=== PATIENT | male | born 1980 | race Caucasian/White ===

== ENCOUNTER 2020-08-16 10:15 | Outpatient (RCR) | payer OTHER, SELFPAY ==
[2020-08-06 12:31] VITALS: BMI 32.5
--- NOTE | 2020-08-06 13:47 | PC.ADMIT ---
Patient is a 40 year old male who was referred by [facility] APTU unit where patient was admitted for increase in depression sxs with SI and plan to cut his wrist. Patient has a hx of polysubstance abuse and is currently on suboxone. He reports smoking marijuana 2 grams daily to cope with how he is feeling. Patient has not smoked since he was hospitalized. He has a hx of MDD, ADHD, and PTSD and multiple inpatient admissions. He is at [facility] as a step-down from inpatient admission for continued stabilization. He stated he wants to learn more coping skills and try to be happy again. He reports being in a custody garcias with his ex over his 2 young children. Patients reportedly left the family 2 years ago after an affair and she came back into their lives a year ago. Per records patient is not formally . Patient presents with depressed mood and anxious affect. Denied SI. Gave verbal permission to email him a copy of his safety plan. Medications reconciled with patient and patient's d/c medication list faxed today from [facility] unit.
--- NOTE | 2020-08-06 16:19 | P.HPPSP_ITS ---
HPI Chief Complaint: depression Sources of Information: patient interviewed and chart reviewed HPI Narrative: 40 yo male, referred after admit to [facility] for an increase in depressive sx with SI and plans to cut his wrists, with poor attention to ADL's, increase in anxiety and panic. Pt reports his left 2 years ago and has recently returned and they are struggling with a custody balance with their children, ages 7 and 5. Pt reports his identity is that of a father and since 's return he has struggled to find who he is as a person. Reports is a therapist and they are attempting mediation, however, this has been a difficult struggle with pt needing hospitalization three times in 2020 along with PHP. Pt hopes to learn coping skills, increase structure and become clearer on who he is as an individual as he now only has the children half-time and tends to isolate when without them. Reports sleep is adequate, appetite is decreased and he feels more hopeful and not suicidal since his hospitalization. Denies hx of nishi, no OCD sx, no sx eating disorder and overall anxiety has decreased since in pt intervention. Past Psychiatric History: IP: 6- three in his 20's and three in 2019. OP: Dr. Greg Martin for psychopharmacology x 10 years [phone] and Lakeisha Mendoza for psychotherapy at [facility] [phone]. States he just started seeing Lakeisha and is now beginning to open up. PHP: [facility] Reports mental health hx since teens. 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 Hx of several detox admissions and rehab admissions. No admits over the past 13 years pt reports. Suboxone from [facility] Hx of OD x 2 Substance use history since teens Trauma History: yes Diagnostics Vital Signs (24Hr): Body Mass Index 32.5 Meds/Allergies Meds Narrative: -sertraline 150 mg daily-increased while in the hospital -gabapentin 600 mg 1200 mg tid -propranolol 10 mg [id number] while in the hospital -seroquel 50 mg tid -suboxone 8 mg daily -adderall xr 20 mg daily Allergies Allergies Allergy/AdvReac Type Severity Reaction Status Date / Time No Known Allergies Allergy Verified 08/06/20 08:19 Mental Status Exam Mental Status Exam Patient Appearance: Appropriate Patient Orientation: Person, Place, Time and Situation Level of Consciousness: Awake and Alert Patient Behavior: Appropriate and Talkative Mood Description: Anxious Affect Description: Constricted Patient Cognition Impaired: No Ability to Follow Directions: Good Speech Pattern: Spontaneous Speech Memory Description: Intact Hallucinations: None Delusions: Not Present Thought Process: Intact Thought Content: positive for Intact Depressive Symptoms: Changes in Appetite, Loss of Int. in Activity and Low Self Esteem Judgement: Good Assessment & Plan Assessment & Plan (1) Recurrent major depression-severe: Status: Acute Code(s): F33.2 - Major depressive disorder, recurrent severe without psychotic features Assessment and Plan: -Continue current regime -Call to Dr. Martin, message left. (2) Opioid use disorder, severe, in sustained remission, on maintenance therapy: Status: Acute Code(s): F11.21 - Opioid dependence, in remission (3) Cannabis use disorder, severe, dependence: Status: Acute Code(s): F12.20 - Cannabis dependence, uncomplicated Certification I certify that partial hospital treatment is medically necessary due to the symptoms and problems resulting from the patient's mental illness and the failure to treat the patient at the partial hospital level of care would likely result in the patient requiring inpatient psychiatric care which could not be prevented at a less intensive level of care. Telehealth Telehealth Location of provider rendering services: practice address Location of patient: address on file Patient Identification confirmed using: Name, : Yes Telehealth method: video Patient verbally consented to treatment: Yes Patient verbally consented to billing insurance company: Yes Patient informed of any privacy concerns related to visit: Yes Time spent with patient (mins): 30
--- NOTE | 2020-08-09 08:41 | PC.NURSE ---
Pt called out stating he doesn't feel well after getting the COVID vaccine
--- NOTE | 2020-08-12 08:39 | PC.NURSE ---
Called and LM for pt to pls call re: schedule and how treatment is going.
--- NOTE | 2020-08-13 08:42 | PC.NURSE ---
Pt called out stating he still doesn't feel well.
--- NOTE | 2020-08-15 08:42 | PC.NURSE ---
Pt called out stating he didn't sleep well and has an MD appt.
--- NOTE | 2020-08-16 14:02 | P.PNPSP_ITS ---
Subjective Subjective Date of Service: 08/16/20 Reason For Visit: depression Interim History: Pt reports PHP has been beneficial. he reports since he was discharged from In at [facility] this year mid Jul, his sleep and appetite are improving. He denies suicidal or homicidal ideation. He reports less symptoms of depression. He reports increased motivation to engage in activities that he enjoys. Medication Compliance: Yes Side effects from medications: No Attending Groups: Yes Review of Systems Review of Systems Yes all other systems are reviewed and are negative Mental Status Exam Mental Status Exam Narrative: Appearance: casually groomed, fair hygiene, in NAD Behavior: calm, cooperative Psychomotor: no agitation or retardation noted Speech: clear, normal rate/rhythm/volume, spontaneous TP: linear TC: no signs of psychosis, future oriented Mood: okay Affect:brighter, non labile AH/VH:none Delusions:none Insight/judgment:fair x 2. Memory/cog:alert, oriented x 3. grossly intact to conversational testing. Diagnostics Vital Signs (24Hr): Body Mass Index 32.5 Assessment & Plan Assessment & Plan (1) Recurrent major depression-severe: Status: Acute Code(s): F33.2 - Major depressive disorder, recurrent severe without psychotic features Assessment and Plan: -Continue current regime (2) Opioid use disorder, severe, in sustained remission, on maintenance therapy: Status: Acute Code(s): F11.21 - Opioid dependence, in remission (3) Cannabis use disorder, severe, dependence: Status: Acute Code(s): F12.20 - Cannabis dependence, uncomplicated Certification I certify that partial hospital treatment is medically necessary due to the symptoms and problems resulting from the patient's mental illness and the failure to treat the patient at the partial hospital level of care would likely result in the patient requiring inpatient psychiatric care which could not be prevented at a less intensive level of care. Greater than 50% of the session was spent on counseling and/or coordination of care Discharge Plan Discharge Attending provider: Brent Burt Medications: New sertraline 100 mg tablet 150 mg PO DAILY Qty: 45 RF: 0 Continued gabapentin [Neurontin] 600 mg Tablet 1,200 mg PO TID Qty: 42 RF: 0 propranolol 10 mg Tablet 10 mg PO BID Qty: 14 RF: 0 quetiapine 50 mg Tablet 50 mg PO TID Qty: 21 RF: 0 Discontinued sertraline [Zoloft] 50 mg Tablet 150 mg PO DAILY RF: 0 No Action dextroamphetamine-amphetamine [Adderall] 10 mg Tablet 20 mg PO DAILY RF: 0 hydroxyzine HCl 50 mg Tablet 50 mg PO QID PRN (Reason: Anxiety) RF: 0 trazodone 100 mg Tablet 100 mg PO BEDTIME RF: 0 buprenorphine-naloxone [Suboxone] 8-2 mg Film 1 film BUCCAL DAILY RF: 0 Telehealth Telehealth Location of provider rendering services: practice address Location of patient: address on file Patient Identification confirmed using: Name, : Yes Telehealth method: video Patient verbally consented to treatment: Yes Patient verbally consented to billing insurance company: Yes Patient informed of any privacy concerns related to visit: Yes Time spent with patient (mins): 15
--- NOTE | 2020-08-19 09:15 | PC.NURSE ---
Pt called and left a message stating he has to discontinue PHP due to his kids' mother having to go out of town and him having the kids. I called back and LM to review discharge info.
--- NOTE | 2020-08-19 11:17 | PC.NURSE ---
I called and LM for pt asking him to pls call back to review discharge information and discuss aftercare plans.
--- NOTE | 2020-08-19 16:14 | PC.NURSE ---
I called an left a message for pt's therapist, Lakeisha Mendoza at [facility], informing her of pt's discharge from [facility].
== END 2020-08-16 23:55 | disposition home or self-care (01) ==
LOC: HO.PHPA 10:15
PROVIDERS: Visit Provider Psychiatry & Neurology Psychiatry
DX: F33.2 Major depressive disorder, recurrent severe without psychotic features (principal); F12.20 Cannabis dependence, uncomplicated; F11.21 Opioid dependence, in remission
CPT/HCPCS: 90791; 90853

== ENCOUNTER 2020-12-18 14:17 | Inpatient (IN) | payer OTHER, SELFPAY ==
[2020-12-18 15:14] VITALS: BP 148/101; PULSE 85; RESP 16; TEMP 36.9; O2SAT 97; BMI 31.1
[2020-12-18 15:30] VITALS: BP 147/100; PULSE 83; RESP 16; TEMP 37.1; O2SAT 97
--- NOTE | 2020-12-18 16:18 | PHA.MEDREC ---
Pharmacy Consult ? Medication Reconciliation Pharmacy has completed the medication reconciliation.
[2020-12-18 16:24] LABS: COVID-19 Test Negative (Negative); IDNOW Serial# 9DD0AD1C
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
[2020-12-18 19:23] LABS: Amphetamine Screen Urine Not Detected (Not Detect); Barbiturates, Urine Not Detected (Not Detect); Benzodiazepines Screen Urine Not Detected (Not Detect); Cannabinoid Screen Urine POSITIVE (Not Detect); Cocaine Screen Urine Not Detected (Not Detect); Opiate Screen Urine Not Detected (Not Detect); Phencyclidine Screen Urine Not Detected (Not Detect)
[2020-12-18 22:16] VITALS: BP 136/92; PULSE 82
[2020-12-18] MEDS: traZODone HCL 100 MG TABLET PO (22:16)
[2020-12-18] MEDS: Gabapentin 600 MG TABLET 1200 MG PO (22:16)
[2020-12-18] MEDS: Propranolol HCL 10 MG TABLET PO (22:16)
[2020-12-18] MEDS: QUEtiapine Fumarate 50 MG TABLET PO (22:16)
--- NOTE | 2020-12-18 22:18 | PC.NURSE ---
Night time meds administered as ordered, no distress observed/reported, calm and cooperative, RN to RN to [facility]5 completed, will continue to monitor
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
[2020-12-18 23:27] VITALS: BP 164/103; PULSE 70; TEMP 36.1
[2020-12-19 07:00] VITALS: BMI 30.4
[2020-12-19] MEDS: Gabapentin 600 MG TABLET 1200 MG PO ×3 (08:00→15:41)
[2020-12-19 08:54] LABS: Alanine Aminotransferase 14 U/L (0-40); Albumin Level 4.1 g/dL (3.5-5.0); Alkaline Phosphatase 109 U/L (39-117); Anion Gap 11 (12-20); Aspartate Amino Transferase 14 U/L (5-37); Bilirubin Total 0.2 mg/dL (0.0-1.0); Blood Urea Nitrogen 12 mg/dL (9-16); Calcium 9.2 mg/dL (8.4-10.2); Carbon Dioxide 26 mmol/L (22-29); Chloride 109 mmol/L (96-108); Creatinine Clr Calc Pharmacy 141.3; Estimated Glomerular Filt Rate > 60; Glucose Random 130 mg/dL (60-115); Potassium 4.3 mmol/L (3.3-5.1); Sodium 142 mmol/L (135-145); Total Protein 7.2 g/dL (6.5-8.0)
[2020-12-19 08:55] LABS: Cholesterol 208 mg/dL; HDL Cholesterol 31 mg/dL; LDL Cholesterol Calculated 131 mg/dl; Triglycerides 234 mg/dL
[2020-12-19] MEDS: Sertraline HCL 50 MG TABLET 150 MG PO (08:56)
[2020-12-19] MEDS: Amphetamine Mixed Salts 10 MG TABLET 20 MG PO (08:56)
[2020-12-19] MEDS: QUEtiapine Fumarate 50 MG TABLET PO ×3 (08:56→20:22)
[2020-12-19 09:00] VITALS: BP 152/92; PULSE 85
[2020-12-19] MEDS: Propranolol HCL 10 MG TABLET PO ×2 (09:00→20:18)
[2020-12-19] MEDS: Acetaminophen 325 MG TABLET 650 MG PO (09:02)
[2020-12-19 09:16] LABS: Thyroid Stimulating Hormone 1.23 uIU/mL (0.32-4.0)
[2020-12-19 09:33] LABS: Estimated Average Glucose 128 mg/dL; Hemoglobin A1C 150.7425 umol/L; Hemoglobin A1c % 6.1 %; Vitamin B12 203 pg/mL (200-900)
[2020-12-19] MEDS: Nicotine 21 MG PATCH.TD24 TRANSDERMA (13:02)
[2020-12-19] MEDS: Buprenorphine/Naloxone 8/2 mg FILM 1 FILM SUBLINGUAL (13:02)
[2020-12-19] MEDS: Nicotine Polacrilex 2 MG GUM 4 MG BUCCAL ×3 (13:02→18:56)
--- NOTE | 2020-12-19 13:34 | HO.PSYADMNOT ---
HPI Chief Complaint: SI Sources of Information: patient interviewed, chart reviewed and crisis/core team assessment reviewed HPI Subjective Notes: Conditional Voluntary Narrative: Mr. Herrera is a 40 year-old male with hx of MDD, opioid use disorder in remission on suboxone who self presented to [facility] ED reporting increase depression, suicidal thoughts in context of ongoing conflict with as they go through divorce. In the ED, his utox was negative. On the unit, Mr. Herrera reports that him and his about 3 years ago. 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 Due to financial concerns, pt and his had agreed that she would buy him out the part of their marital house. In the meantime, pt has been staying home with kids and his left the home while continue to support pt financially. Pt reports in past 3 months there has been increasingly more conflict between both of them to the point that had restraining order against him and DCF is now involved. Pt reports that he feels as if is trying to use his hx of substance use against him. He denies relapsing for past 14 years and being fairly stable since psychiatrically. On the unit, pt adamantly denies suicidal or homicidal ideation. He identifies children as protective factors. He reports feeling stuck in that he is not financially stable. He can't fully explain why he has not been able to find a job. He reports he has been on same medications for several years and does not think these are the problem. Past Psychiatric History: IP: some in his 20's. APTU 07/2020; OP: Dr. Greg Martin for psychopharmacology x 10 years [phone] and Lakeisha Mendoza for psychotherapy at [facility] [phone]. States he just started seeing Lakeisha and is now beginning to open up. PHP: [facility] Reports mental health hx since teens. 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 Trauma History: yes Diagnostics Vital Signs (24Hr): Vital Signs - 24 hr 12/19/20 18:00 12/19/20 20:18 12/20/20 06:45 Temperature 98.5 F 97.3 F Pulse Rate 98 98 65 Respiratory Rate 16 Blood Pressure 158/95 H 158/95 H 137/83 Pulse Oximetry 97 12/20/20 08:59 Temperature Pulse Rate 75 Respiratory Rate Blood Pressure 133/89 Pulse Oximetry Body Mass Index 30.4 Labs Results: 12/19/20 08:02 Labs: Laboratory Results - last 48 hr 12/18/20 12/18/20 12/19/20 16:02 18:55 08:02 Sodium Potassium Chloride Carbon Dioxide Anion Gap BUN Creatinine Estim Creat Clear Calc Estimated GFR Random Glucose Estimat Average Glucose 128 Hemoglobin A1c % 6.1 Calcium Total Bilirubin AST ALT Alkaline Phosphatase Total Protein Albumin Triglycerides Cholesterol LDL Cholesterol, Calc HDL Cholesterol Vitamin B12 Folate TSH Urine Opiates Screen Not Detected Ur Barbiturates Screen Not Detected Ur Phencyclidine Scrn Not Detected Ur Amphetamines Screen Not Detected U Benzodiazepines Scrn Not Detected Urine Cocaine Screen Not Detected U Marijuana (THC) Screen POSITIVE H COVID-19 ([place]) Negative COVID-19 Clin Com See Note 12/19/20 12/19/20 12/19/20 08:02 08:02 08:02 Sodium 142 Potassium 4.3 Chloride 109 H Carbon Dioxide 26 Anion Gap 11 L BUN 12 Creatinine 0.85 Estim Creat Clear Calc 141.3 Estimated GFR > 60 Random Glucose 130 H Estimat Average Glucose Hemoglobin A1c % Calcium 9.2 Total Bilirubin 0.2 AST 14 ALT 14 Alkaline Phosphatase 109 Total Protein 7.2 Albumin 4.1 Triglycerides 234 Cholesterol 208 LDL Cholesterol, Calc 131 HDL Cholesterol 31 Vitamin B12 203 Folate 10.0 TSH 1.23 Urine Opiates Screen Ur Barbiturates Screen Ur Phencyclidine Scrn Ur Amphetamines Screen U Benzodiazepines Scrn Urine Cocaine Screen U Marijuana (THC) Screen COVID-19 ([place]) COVID-19 Clin Com Meds/Allergies Meds Home Medications Acetaminophen (Acetaminophen 325 Mg Tablet) 650 mg PO Q6H PRN PRN Reason: Headache/Pain Mild Scale (1-3) Last Admin: 12/19/20 09:02 Dose: 650 mg Documented by: Al Hydroxide/Mg Hydroxide (Magnesium Hydrox/Alum Hydrox 30 Ml Oral.Susp) 30 ml PO Q6H PRN PRN Reason: Heartburn/Nausea Amphetamine/Dextroamphetamine (Amphetamine Mixed Salts 10 Mg Tablet) 20 mg PO DAILY [facility] Last Admin: 12/20/20 08:44 Dose: 20 mg Documented by: Buprenorphine/Naloxone (Buprenorphine/Naloxone 8/2 Mg Film) 1 film SUBLINGUAL DAILY [facility] Last Admin: 12/20/20 08:45 Dose: 1 film Documented by: Gabapentin (Gabapentin 600 Mg Tablet) 1,200 mg PO TID [facility] Last Admin: 12/20/20 08:44 Dose: 1,200 mg Documented by: Hydroxyzine HCl (Hydroxyzine Hcl 50 Mg Tablet) 50 mg PO QID PRN PRN Reason: Anxiety Hydroxyzine HCl (Hydroxyzine Hcl 25 Mg Tablet) 25 mg PO BEDTIME PRN PRN Reason: Anxiety Magnesium Hydroxide (Milk Of Magnesia 30 Ml Oral.Susp) 30 ml PO DAILY PRN PRN Reason: Constipation Nicotine (Nicotine 21 Mg Patch.Td24) 21 mg TRANSDERMA DAILY [facility] Last Admin: 12/20/20 08:45 Dose: 21 mg Documented by: Nicotine Polacrilex (Nicotine Polacrilex 2 Mg Gum) 4 mg BUCCAL Q2H PRN PRN Reason: nicotine cravings Last Admin: 12/20/20 09:03 Dose: 4 mg Documented by: Propranolol HCl (Propranolol Hcl 10 Mg Tablet) 10 mg PO BID [facility]; Protocol Last Admin: 12/20/20 08:59 Dose: 10 mg Documented by: Quetiapine Fumarate (Quetiapine Fumarate 50 Mg Tablet) 50 mg PO TID [facility] Last Admin: 12/20/20 08:44 Dose: 50 mg Documented by: Sertraline HCl (Sertraline Hcl 50 Mg Tablet) 150 mg PO DAILY [facility] Last Admin: 12/20/20 08:44 Dose: 150 mg Documented by: Trazodone HCl (Trazodone Hcl 100 Mg Tablet) 100 mg PO BEDTIME [facility] Last Admin: 12/19/20 20:19 Dose: 100 mg Documented by: Trazodone HCl (Trazodone Hcl 50 Mg Tablet) 50 mg PO BEDTIME PRN PRN Reason: Insomnia Allergies Allergies Allergy/AdvReac Type Severity Reaction Status Date / Time No Known Allergies Allergy Verified 12/18/20 15:20 Mental Status Exam Mental Status Exam Narrative: Appearance: casually groomed, fair hygiene in NAD Behavior:cooperative psychomotor: no agitation or retardation noted Speech:clear, normal rate/rhythm/volume, spontaneous Thought process:linear Thought content: no signs of psychosis, Mood: anxious Affect: congruent VH/AH:none SI:denies HI:denies Delusions:none Memory/cog: alert, oriented x 3. Assessment & Plan Assessment & Plan (1) Opioid use disorder, severe, in sustained remission, on maintenance therapy: Status: Acute Code(s): F11.21 - Opioid dependence, in remission Assessment and Plan: continue suboxone (2) Recurrent major depression-severe: Status: Acute Qualifiers: Psychotic features: without psychotic features Qualified Code(s): F33.2 - Major depressive disorder, recurrent severe without psychotic features Code(s): F33.2 - Major depressive disorder, recurrent severe without psychotic features Assessment and Plan: Mr. Herrera is a 40 year-old with hx of depresion who self presented to [facility] ED reporting suicidal ideation in context of conflict with as they go through divorce. On the unit, pt denies suicidal or homicidal ideation. He reports feeling stuck as he has not been able to find stable job (for unclear reasons). We discussed risks, benefits and alternative treatment options. Pt in agreement to continue current OP medications as he feels these have been helpful throughout the years. PLAN: 1. Admit to M5 2. continue current medications including sertraline, adderall 3. Aftercare planning 4. Obtain collateral information. Reason for continued inpatient stay Substantial Risk for: harm to self
[2020-12-19 18:00] VITALS: BP 158/95; PULSE 98; TEMP 36.9
[2020-12-19 20:18] VITALS: BP 158/95; PULSE 98
[2020-12-19] MEDS: traZODone HCL 100 MG TABLET PO (20:19)
[2020-12-20 06:45] VITALS: BP 137/83; PULSE 65; RESP 16; TEMP 36.3; O2SAT 97
[2020-12-20] MEDS: Gabapentin 600 MG TABLET 1200 MG PO ×3 (08:44→21:12)
[2020-12-20] MEDS: Amphetamine Mixed Salts 10 MG TABLET 20 MG PO (08:44)
[2020-12-20] MEDS: Sertraline HCL 50 MG TABLET 150 MG PO (08:44)
[2020-12-20] MEDS: QUEtiapine Fumarate 50 MG TABLET PO ×3 (08:44→21:11)
[2020-12-20] MEDS: Nicotine 21 MG PATCH.TD24 TRANSDERMA (08:45)
[2020-12-20] MEDS: Buprenorphine/Naloxone 8/2 mg FILM 1 FILM SUBLINGUAL (08:45)
[2020-12-20 08:59] VITALS: BP 133/89; PULSE 75
[2020-12-20] MEDS: Propranolol HCL 10 MG TABLET PO ×2 (08:59→21:12)
[2020-12-20] MEDS: Nicotine Polacrilex 2 MG GUM 4 MG BUCCAL ×3 (09:03→21:11)
--- NOTE | 2020-12-20 13:50 | P.PNPSI_ITS ---
Subjective Subjective Date of Service: 12/20/20 Reason For Visit: SI Subjective Notes: Conditional Voluntary Interim History: Pt reports feeling more hopeful today. he reports some difficult sleeping- staying asleep. He reports less feelings of overwhelmed. He reports he wants to work on him self and find a job. He is interested in continuing OP psych programs. He denies SI/HI. He has been visible in the unit, social with peers. No behavioral concerns. Review of Systems Review of Systems Constitutional: No Fever, No Chills, No Fatigue, No Malaise Cardiovascular: No Chest Pain, No SOB Respiratory: No Cough, No Dyspnea Gastrointestinal: No Nausea, No Vomiting, No Diarrhea, No Abdominal pain Genitourinary: No Dysuria, No Hematuria Musculoskeletal: No joint pain, No Myalgias, No Joint Swelling Skin: No Skin Lesions, No rash Neuro: No Weakness, No Headache Psych: No Anxiety/Panic, No Depression, No SI/HI/AH/VH, + Social Issues Yes all other systems are reviewed and are negative Cardiovascular: Denies chest pain, Denies lightheadedness, Denies dyspnea and Denies dyspnea on exertion Respiratory: Denies dyspnea and Denies dyspnea on exertion Gastrointestinal: Denies constipation and Denies diarrhea Mental Status Exam Mental Status Exam Narrative: Appearance: casually groomed, fair hygiene in NAD Behavior:cooperative psychomotor: no agitation or retardation noted Speech:clear, normal rate/rhythm/volume, spontaneous Thought process:linear Thought content: no signs of psychosis, Mood: anxious Affect: congruent VH/AH:none SI:denies HI:denies Delusions:none Memory/cog: alert, oriented x 3. Diagnostics Vital Signs (24Hr): Vital Signs - 24 hr 12/19/20 18:00 12/19/20 20:18 12/20/20 06:45 Temperature 98.5 F 97.3 F Pulse Rate 98 98 65 Respiratory Rate 16 Blood Pressure 158/95 H 158/95 H 137/83 Pulse Oximetry 97 12/20/20 08:59 Temperature Pulse Rate 75 Respiratory Rate Blood Pressure 133/89 Pulse Oximetry Body Mass Index 30.4 Labs Results: 12/19/20 08:02 Labs: Laboratory Results - last 48 hr 12/18/20 12/18/20 12/19/20 16:02 18:55 08:02 Sodium Potassium Chloride Carbon Dioxide Anion Gap BUN Creatinine Estim Creat Clear Calc Estimated GFR Random Glucose Estimat Average Glucose 128 Hemoglobin A1c % 6.1 Calcium Total Bilirubin AST ALT Alkaline Phosphatase Total Protein Albumin Triglycerides Cholesterol LDL Cholesterol, Calc HDL Cholesterol Vitamin B12 Folate TSH Urine Opiates Screen Not Detected Ur Barbiturates Screen Not Detected Ur Phencyclidine Scrn Not Detected Ur Amphetamines Screen Not Detected U Benzodiazepines Scrn Not Detected Urine Cocaine Screen Not Detected U Marijuana (THC) Screen POSITIVE H COVID-19 ([place]) Negative COVID-19 Clin Com See Note 12/19/20 12/19/20 12/19/20 08:02 08:02 08:02 Sodium 142 Potassium 4.3 Chloride 109 H Carbon Dioxide 26 Anion Gap 11 L BUN 12 Creatinine 0.85 Estim Creat Clear Calc 141.3 Estimated GFR > 60 Random Glucose 130 H Estimat Average Glucose Hemoglobin A1c % Calcium 9.2 Total Bilirubin 0.2 AST 14 ALT 14 Alkaline Phosphatase 109 Total Protein 7.2 Albumin 4.1 Triglycerides 234 Cholesterol 208 LDL Cholesterol, Calc 131 HDL Cholesterol 31 Vitamin B12 203 Folate 10.0 TSH 1.23 Urine Opiates Screen Ur Barbiturates Screen Ur Phencyclidine Scrn Ur Amphetamines Screen U Benzodiazepines Scrn Urine Cocaine Screen U Marijuana (THC) Screen COVID-19 ([place]) COVID-19 Clin Com Medications Medications Current Medications Generic Name Dose Route Start Last Admin Trade Name Freq PRN Reason Stop Dose Admin Acetaminophen 650 mg 12/18/20 21:31 12/19/20 09:02 Acetaminophen 325 Mg Tablet PO 650 mg Q6H PRN Administration Headache/Pain Mild Scale (1-3) Al Hydroxide/Mg Hydroxide 30 ml 12/18/20 21:31 Magnesium Hydrox/Alum Hydrox 30 Ml Oral.Susp PO Q6H PRN Heartburn/Nausea Amphetamine/Dextroamphetamine 20 mg 12/19/20 09:00 12/20/20 08:44 Amphetamine Mixed Salts 10 Mg Tablet PO 20 mg DAILY [facility] Administration Buprenorphine/Naloxone 1 film 12/19/20 12:50 12/20/20 08:45 Buprenorphine/Naloxone 8/2 Mg Film SUBLINGUAL 1 film DAILY [facility] Administration Gabapentin 1,200 mg 12/18/20 21:00 12/20/20 08:44 Gabapentin 600 Mg Tablet PO 1,200 mg TID [facility] Administration Hydroxyzine HCl 50 mg 12/18/20 19:34 Hydroxyzine Hcl 50 Mg Tablet PO QID PRN Anxiety Hydroxyzine HCl 25 mg 12/18/20 21:31 Hydroxyzine Hcl 25 Mg Tablet PO BEDTIME PRN Anxiety Magnesium Hydroxide 30 ml 12/18/20 21:31 Milk Of Magnesia 30 Ml Oral.Susp PO DAILY PRN Constipation Nicotine 21 mg 12/19/20 12:55 12/20/20 08:45 Nicotine 21 Mg Patch.Td24 TRANSDERMA 21 mg DAILY [facility] Administration Nicotine Polacrilex 4 mg 12/19/20 12:53 12/20/20 09:03 Nicotine Polacrilex 2 Mg Gum BUCCAL 4 mg Q2H PRN Administration nicotine cravings Propranolol HCl 10 mg 12/18/20 21:00 12/20/20 08:59 Propranolol Hcl 10 Mg Tablet PO 10 mg BID [facility] Administration Protocol Quetiapine Fumarate 50 mg 12/18/20 21:00 12/20/20 08:44 Quetiapine Fumarate 50 Mg Tablet PO 50 mg TID [facility] Administration Sertraline HCl 150 mg 12/19/20 09:00 12/20/20 08:44 Sertraline Hcl 50 Mg Tablet PO 150 mg DAILY [facility] Administration Trazodone HCl 100 mg 12/18/20 21:00 12/19/20 20:19 Trazodone Hcl 100 Mg Tablet PO 100 mg BEDTIME [facility] Administration Trazodone HCl 50 mg 12/18/20 21:31 Trazodone Hcl 50 Mg Tablet PO BEDTIME PRN Insomnia Allergies Allergies Allergy/AdvReac Type Severity Reaction Status Date / Time No Known Allergies Allergy Verified 12/18/20 15:20 Assessment & Plan Assessment & Plan (1) Opioid use disorder, severe, in sustained remission, on maintenance therapy: Status: Acute Code(s): F11.21 - Opioid dependence, in remission Assessment and Plan: continue suboxone (2) Recurrent major depression-severe: Qualifiers: Psychotic features: without psychotic features Qualified Code(s): F33.2 - Major depressive disorder, recurrent severe without psychotic features Status: Acute Code(s): F33.2 - Major depressive disorder, recurrent severe without psychotic features Assessment and Plan: Mr. Herrera is a 40 year-old with hx of depresion who self presented to [facility] ED reporting suicidal ideation in context of conflict with as they go through divorce. On the unit, pt denies suicidal or homicidal ideation. He reports feeling stuck as he has not been able to find stable job (for unclear reasons). We discussed risks, benefits and alternative treatment options. Pt in agreement to continue current OP medications as he feels these have been helpful throughout the years. PLAN: 1. Admit to M5 2. continue current medications including sertraline, adderall 3. Aftercare planning 4. Obtain collateral information. Greater than 50% of the session was spent on counseling and/or coordination of care Reason for contiued inpatient stay Substantial Risk for: harm to self
[2020-12-20 18:00] VITALS: BP 140/93; PULSE 103; TEMP 36.5
[2020-12-20 21:12] VITALS: BP 140/93; PULSE 103
[2020-12-20] MEDS: traZODone HCL 50 MG TABLET 150 MG PO (21:12)
[2020-12-20] MEDS: hydrOXYzine HCL 25 MG TABLET PO (21:12)
[2020-12-21 06:00] VITALS: RESP 16; TEMP 36.5; O2SAT 96
--- NOTE | 2020-12-21 06:45 | HO.PSYCHPN ---
Subjective Subjective Date of Service: 12/23/20 Reason For Visit: SI Interim History: Pt continues to report feeling more hopeful today. he reports some difficult sleeping- staying asleep- increase trazodone. He reports less feelings of overwhelmed. He reports he wants to work on himself and find a job. He is interested in continuing OP psych programs. He denies SI/HI. He has been visible in the unit, social with peers. No behavioral concerns. Review of Systems Review of Systems Constitutional: No Fever, No Chills, No Fatigue, No Malaise Cardiovascular: No Chest Pain, No SOB Respiratory: No Cough, No Dyspnea Gastrointestinal: No Nausea, No Vomiting, No Diarrhea, No Abdominal pain Genitourinary: No Dysuria, No Hematuria Musculoskeletal: No joint pain, No Myalgias, No Joint Swelling Skin: No Skin Lesions, No rash Neuro: No Weakness, No Headache Psych: No Anxiety/Panic, No Depression, No SI/HI/AH/VH, + Social Issues Yes all other systems are reviewed and are negative Cardiovascular: Denies chest pain, Denies lightheadedness, Denies dyspnea and Denies dyspnea on exertion Respiratory: Denies dyspnea and Denies dyspnea on exertion Gastrointestinal: Denies constipation and Denies diarrhea Mental Status Exam Mental Status Exam Narrative: Appearance: casually groomed, fair hygiene in NAD Behavior:cooperative psychomotor: no agitation or retardation noted Speech:clear, normal rate/rhythm/volume, spontaneous Thought process:linear Thought content: no signs of psychosis, Mood: anxious Affect: congruent VH/AH:none SI:denies HI:denies Delusions:none Memory/cog: alert, oriented x 3. Diagnostics Vital Signs (24Hr): Vital Signs - 24 hr 12/22/20 07:52 12/22/20 20:16 12/22/20 20:27 Temperature 97.5 F Pulse Rate 91 88 88 Blood Pressure 140/82 H 140/82 H 140/82 H Body Mass Index 30.4 Labs Results: 12/19/20 08:02 Medications Medications Current Medications Generic Name Dose Route Start Last Admin Trade Name Freq PRN Reason Stop Dose Admin Acetaminophen 650 mg 12/18/20 21:31 12/22/20 20:16 Acetaminophen 325 Mg Tablet PO 650 mg Q6H PRN Administration Headache/Pain Mild Scale (1-3) Al Hydroxide/Mg Hydroxide 30 ml 12/18/20 21:31 Magnesium Hydrox/Alum Hydrox 30 Ml Oral.Susp PO Q6H PRN Heartburn/Nausea Amphetamine/Dextroamphetamine 20 mg 12/19/20 09:00 12/22/20 07:51 Amphetamine Mixed Salts 10 Mg Tablet PO 20 mg DAILY [facility] Administration Buprenorphine/Naloxone 1 film 12/19/20 12:50 12/22/20 07:51 Buprenorphine/Naloxone 8/2 Mg Film SUBLINGUAL 1 film DAILY [facility] Administration Gabapentin 1,200 mg 12/18/20 21:00 12/22/20 20:16 Gabapentin 600 Mg Tablet PO 1,200 mg TID [facility] Administration Hydroxyzine HCl 50 mg 12/18/20 19:34 12/22/20 20:16 Hydroxyzine Hcl 50 Mg Tablet PO 50 mg QID PRN Administration Anxiety Hydroxyzine HCl 25 mg 12/18/20 21:31 12/20/20 21:12 Hydroxyzine Hcl 25 Mg Tablet PO 25 mg BEDTIME PRN Administration Anxiety Magnesium Hydroxide 30 ml 12/18/20 21:31 Milk Of Magnesia 30 Ml Oral.Susp PO DAILY PRN Constipation Nicotine 21 mg 12/19/20 12:55 12/22/20 07:52 Nicotine 21 Mg Patch.Td24 TRANSDERMA 21 mg DAILY [facility] Administration Nicotine Polacrilex 4 mg 12/19/20 12:53 12/22/20 20:16 Nicotine Polacrilex 2 Mg Gum BUCCAL 4 mg Q2H PRN Administration nicotine cravings Propranolol HCl 10 mg 12/18/20 21:00 12/22/20 20:16 Propranolol Hcl 10 Mg Tablet PO 10 mg BID [facility] Administration Protocol Quetiapine Fumarate 50 mg 12/22/20 17:00 12/22/20 17:14 Quetiapine Fumarate 50 Mg Tablet PO 50 mg BIDWM [facility] Administration Quetiapine Fumarate 100 mg 12/22/20 21:00 12/22/20 20:16 Quetiapine Fumarate 100 Mg Tablet PO 100 mg BEDTIME [facility] Administration Sertraline HCl 150 mg 12/19/20 09:00 12/22/20 07:51 Sertraline Hcl 50 Mg Tablet PO 150 mg DAILY [facility] Administration Trazodone HCl 50 mg 12/18/20 21:31 Trazodone Hcl 50 Mg Tablet PO BEDTIME PRN Insomnia Trazodone HCl 150 mg 12/20/20 21:00 12/22/20 20:15 Trazodone Hcl 50 Mg Tablet PO 150 mg BEDTIME [facility] Administration Allergies Allergies Allergy/AdvReac Type Severity Reaction Status Date / Time No Known Allergies Allergy Verified 12/18/20 15:20 Assessment & Plan Assessment & Plan (1) Opioid use disorder, severe, in sustained remission, on maintenance therapy: Status: Acute Code(s): F11.21 - Opioid dependence, in remission Assessment and Plan: continue suboxone (2) Recurrent major depression-severe: Qualifiers: Psychotic features: without psychotic features Qualified Code(s): F33.2 - Major depressive disorder, recurrent severe without psychotic features Status: Acute Code(s): F33.2 - Major depressive disorder, recurrent severe without psychotic features Assessment and Plan: Mr. Herrera is a 40 year-old with hx of depresion who self presented to [facility] ED reporting suicidal ideation in context of conflict with as they go through divorce. On the unit, pt denies suicidal or homicidal ideation. He reports feeling stuck as he has not been able to find stable job (for unclear reasons). We discussed risks, benefits and alternative treatment options. Pt in agreement to continue current OP medications as he feels these have been helpful throughout the years. PLAN: 1. Admit to M5 2. continue current medications including sertraline, adderall 3. Aftercare planning 4. Obtain collateral information. Greater than 50% of the session was spent on counseling and/or coordination of care Reason for contiued inpatient stay Substantial Risk for: harm to self
[2020-12-21] MEDS: Amphetamine Mixed Salts 10 MG TABLET 20 MG PO (08:24)
[2020-12-21] MEDS: QUEtiapine Fumarate 50 MG TABLET PO ×3 (08:24→20:37)
[2020-12-21] MEDS: Gabapentin 600 MG TABLET 1200 MG PO ×3 (08:24→20:34)
[2020-12-21] MEDS: Sertraline HCL 50 MG TABLET 150 MG PO (08:24)
[2020-12-21] MEDS: Buprenorphine/Naloxone 8/2 mg FILM 1 FILM SUBLINGUAL (08:25)
[2020-12-21 08:27] VITALS: BP 133/76; PULSE 75
[2020-12-21] MEDS: Nicotine Polacrilex 2 MG GUM 4 MG BUCCAL ×4 (08:27→20:34)
[2020-12-21] MEDS: Propranolol HCL 10 MG TABLET PO ×2 (08:27→20:36)
[2020-12-21] MEDS: Nicotine 21 MG PATCH.TD24 TRANSDERMA (08:28)
[2020-12-21] MEDS: hydrOXYzine HCL 50 MG TABLET PO ×2 (13:49→20:34)
[2020-12-21 20:30] VITALS: BP 140/88; PULSE 97; TEMP 36.6
[2020-12-21] MEDS: traZODone HCL 50 MG TABLET 150 MG PO (20:35)
[2020-12-21 20:36] VITALS: BP 140/88; PULSE 97
--- NOTE | 2020-12-22 06:46 | P.PNPSI_ITS ---
Subjective Subjective Date of Service: 12/23/20 Reason For Visit: SI Interim History: Pt continues to report feeling more hopeful today. he continues to report some difficult sleeping- staying asleep- despite increase in trazodone. He reports less feelings of overwhelmed. He reports he wants to work on himself and find a job. He is interested in continuing OP psych programs. He denies SI/HI. He has been visible in the unit, social with peers. No behavioral concerns. Review of Systems Review of Systems Constitutional: No Fever, No Chills, No Fatigue, No Malaise Cardiovascular: No Chest Pain, No SOB Respiratory: No Cough, No Dyspnea Gastrointestinal: No Nausea, No Vomiting, No Diarrhea, No Abdominal pain Genitourinary: No Dysuria, No Hematuria Musculoskeletal: No joint pain, No Myalgias, No Joint Swelling Skin: No Skin Lesions, No rash Neuro: No Weakness, No Headache Psych: No Anxiety/Panic, No Depression, No SI/HI/AH/VH, + Social Issues Yes all other systems are reviewed and are negative Cardiovascular: Denies chest pain, Denies lightheadedness, Denies dyspnea and Denies dyspnea on exertion Respiratory: Denies dyspnea and Denies dyspnea on exertion Gastrointestinal: Denies constipation and Denies diarrhea Mental Status Exam Mental Status Exam Narrative: Appearance: casually groomed, fair hygiene in NAD Behavior:cooperative psychomotor: no agitation or retardation noted Speech:clear, normal rate/rhythm/volume, spontaneous Thought process:linear Thought content: no signs of psychosis, Mood: anxious Affect: congruent VH/AH:none SI:denies HI:denies Delusions:none Memory/cog: alert, oriented x 3. Diagnostics Vital Signs (24Hr): Vital Signs - 24 hr 12/22/20 07:52 12/22/20 20:16 12/22/20 20:27 Temperature 97.5 F Pulse Rate 91 88 88 Blood Pressure 140/82 H 140/82 H 140/82 H Body Mass Index 30.4 Labs Results: 12/19/20 08:02 Medications Medications Current Medications Generic Name Dose Route Start Last Admin Trade Name Freq PRN Reason Stop Dose Admin Acetaminophen 650 mg 12/18/20 21:31 12/22/20 20:16 Acetaminophen 325 Mg Tablet PO 650 mg Q6H PRN Administration Headache/Pain Mild Scale (1-3) Al Hydroxide/Mg Hydroxide 30 ml 07/21/21 21:31 Magnesium Hydrox/Alum Hydrox 30 Ml Oral.Susp PO Q6H PRN Heartburn/Nausea Amphetamine/Dextroamphetamine 20 mg 12/19/20 09:00 12/22/20 07:51 Amphetamine Mixed Salts 10 Mg Tablet PO 20 mg DAILY SHAHRZAD Administration Buprenorphine/Naloxone 1 film 12/19/20 12:50 12/22/20 07:51 Buprenorphine/Naloxone 8/2 Mg Film SUBLINGUAL 1 film DAILY SHAHRZAD Administration Gabapentin 1,200 mg 12/18/20 21:00 12/22/20 20:16 Gabapentin 600 Mg Tablet PO 1,200 mg TID SHAHRZAD Administration Hydroxyzine HCl 50 mg 12/18/20 19:34 12/22/20 20:16 Hydroxyzine Hcl 50 Mg Tablet PO 50 mg QID PRN Administration Anxiety Hydroxyzine HCl 25 mg 12/18/20 21:31 12/20/20 21:12 Hydroxyzine Hcl 25 Mg Tablet PO 25 mg BEDTIME PRN Administration Anxiety Magnesium Hydroxide 30 ml 12/18/20 21:31 Milk Of Magnesia 30 Ml Oral.Susp PO DAILY PRN Constipation Nicotine 21 mg 12/19/20 12:55 12/22/20 07:52 Nicotine 21 Mg Patch.Td24 TRANSDERMA 21 mg DAILY SHAHRZAD Administration Nicotine Polacrilex 4 mg 12/19/20 12:53 12/22/20 20:16 Nicotine Polacrilex 2 Mg Gum BUCCAL 4 mg Q2H PRN Administration nicotine cravings Propranolol HCl 10 mg 12/18/20 21:00 12/22/20 20:16 Propranolol Hcl 10 Mg Tablet PO 10 mg BID SHAHRZAD Administration Protocol Quetiapine Fumarate 50 mg 12/22/20 17:00 12/22/20 17:14 Quetiapine Fumarate 50 Mg Tablet PO 50 mg BIDWM SHAHRZAD Administration Quetiapine Fumarate 100 mg 12/22/20 21:00 12/22/20 20:16 Quetiapine Fumarate 100 Mg Tablet PO 100 mg BEDTIME SHAHRZAD Administration Sertraline HCl 150 mg 12/19/20 09:00 12/22/20 07:51 Sertraline Hcl 50 Mg Tablet PO 150 mg DAILY SHAHRZAD Administration Trazodone HCl 50 mg 12/18/20 21:31 Trazodone Hcl 50 Mg Tablet PO BEDTIME PRN Insomnia Trazodone HCl 150 mg 12/20/20 21:00 12/22/20 20:15 Trazodone Hcl 50 Mg Tablet PO 150 mg BEDTIME SHAHRZAD Administration Allergies Allergies Allergy/AdvReac Type Severity Reaction Status Date / Time No Known Allergies Allergy Verified 12/18/20 15:20 Assessment & Plan Assessment & Plan (1) Opioid use disorder, severe, in sustained remission, on maintenance therapy: Status: Acute Code(s): F11.21 - Opioid dependence, in remission Assessment and Plan: continue suboxone (2) Recurrent major depression-severe: Qualifiers: Psychotic features: without psychotic features Qualified Code(s): F33.2 - Major depressive disorder, recurrent severe without psychotic features Status: Acute Code(s): F33.2 - Major depressive disorder, recurrent severe without psychotic features Assessment and Plan: Mr. Herrera is a 40 year-old with hx of depresion who self presented to [facility] ED reporting suicidal ideation in context of conflict with as they go through divorce. On the unit, pt denies suicidal or homicidal ideation. He reports feeling stuck as he has not been able to find stable job (for unclear reasons). We discussed risks, benefits and alternative treatment options. Pt in agreement to continue current OP medications as he feels these have been helpful throughout the years. PLAN: 1. Admit to M5 2. continue current medications including sertraline, adderall 3. Aftercare planning 4. Obtain collateral information. Greater than 50% of the session was spent on counseling and/or coordination of care Reason for contiued inpatient stay Substantial Risk for: harm to self
[2020-12-22] MEDS: QUEtiapine Fumarate 50 MG TABLET PO ×2 (07:51→17:14)
[2020-12-22] MEDS: Sertraline HCL 50 MG TABLET 150 MG PO (07:51)
[2020-12-22] MEDS: Buprenorphine/Naloxone 8/2 mg FILM 1 FILM SUBLINGUAL (07:51)
[2020-12-22] MEDS: Amphetamine Mixed Salts 10 MG TABLET 20 MG PO (07:51)
[2020-12-22 07:52] VITALS: BP 140/82; PULSE 91
[2020-12-22] MEDS: Propranolol HCL 10 MG TABLET PO ×2 (07:52→20:16)
[2020-12-22] MEDS: Nicotine 21 MG PATCH.TD24 TRANSDERMA (07:52)
[2020-12-22] MEDS: Gabapentin 600 MG TABLET 1200 MG PO ×3 (07:52→20:16)
[2020-12-22] MEDS: hydrOXYzine HCL 50 MG TABLET PO ×2 (09:44→20:16)
[2020-12-22] MEDS: Nicotine Polacrilex 2 MG GUM 4 MG BUCCAL ×4 (09:44→20:16)
[2020-12-22] MEDS: traZODone HCL 50 MG TABLET 150 MG PO (20:15)
[2020-12-22 20:16] VITALS: BP 140/82; PULSE 88
[2020-12-22] MEDS: Acetaminophen 325 MG TABLET 650 MG PO (20:16)
[2020-12-22] MEDS: QUEtiapine Fumarate 100 MG TABLET PO (20:16)
[2020-12-22 20:27] VITALS: BP 140/82; PULSE 88; TEMP 36.4
[2020-12-23 06:00] VITALS: BP 133/94; PULSE 97; TEMP 36.5; O2SAT 96
[2020-12-23 08:33] VITALS: BP 140/82; PULSE 88
[2020-12-23] MEDS: QUEtiapine Fumarate 50 MG TABLET PO ×2 (08:33→16:52)
[2020-12-23] MEDS: Amphetamine Mixed Salts 10 MG TABLET 20 MG PO (08:33)
[2020-12-23] MEDS: Propranolol HCL 10 MG TABLET PO ×2 (08:33→21:01)
[2020-12-23] MEDS: Nicotine 21 MG PATCH.TD24 TRANSDERMA (08:34)
[2020-12-23] MEDS: Sertraline HCL 50 MG TABLET 150 MG PO (08:34)
[2020-12-23] MEDS: Buprenorphine/Naloxone 8/2 mg FILM 1 FILM SUBLINGUAL (08:34)
[2020-12-23] MEDS: Gabapentin 600 MG TABLET 1200 MG PO ×3 (08:34→21:01)
[2020-12-23] MEDS: Nicotine Polacrilex 2 MG GUM 4 MG BUCCAL ×4 (09:09→19:28)
[2020-12-23] MEDS: hydrOXYzine HCL 50 MG TABLET PO ×2 (12:50→21:01)
[2020-12-23] MEDS: Acetaminophen 325 MG TABLET 650 MG PO (14:57)
[2020-12-23 21:01] VITALS: BP 145/86; PULSE 92
[2020-12-23] MEDS: QUEtiapine Fumarate 100 MG TABLET PO (21:01)
[2020-12-23] MEDS: traZODone HCL 50 MG TABLET 150 MG PO (21:01)
[2020-12-23 21:07] VITALS: BP 145/86; PULSE 92; TEMP 36.9
[2020-12-24 06:32] VITALS: BP 133/73; PULSE 76; RESP 18; TEMP 36.8; O2SAT 97
[2020-12-24 08:03] VITALS: BP 133/73; PULSE 76
[2020-12-24] MEDS: Amphetamine Mixed Salts 10 MG TABLET 20 MG PO (08:03)
[2020-12-24] MEDS: Propranolol HCL 10 MG TABLET PO (08:03)
[2020-12-24] MEDS: Gabapentin 600 MG TABLET 1200 MG PO (08:03)
[2020-12-24] MEDS: QUEtiapine Fumarate 50 MG TABLET PO (08:03)
[2020-12-24] MEDS: Sertraline HCL 50 MG TABLET 150 MG PO (08:03)
[2020-12-24] MEDS: Nicotine 21 MG PATCH.TD24 TRANSDERMA (08:04)
[2020-12-24] MEDS: Buprenorphine/Naloxone 8/2 mg FILM 1 FILM SUBLINGUAL (08:04)
[2020-12-24] MEDS: Nicotine Polacrilex 2 MG GUM 4 MG BUCCAL (10:35)
--- NOTE | 2020-12-24 11:00 | P.DS_ITS ---
DS: Providers Provider Date of Service: 12/24/20 Date of admission: 12/18/20 21:31 Primary care physician: Salvatore Valenzuela MD DS: Diagnosis Discharge Diagnosis (1) Opioid use disorder, severe, in sustained remission, on maintenance therapy: Status: Acute (2) Recurrent major depression-severe: Status: Acute DS: Medications Discharge Medications Home Medications: Home Medications Medication Instructions Recorded Confirmed buprenorphine-naloxone [Suboxone] 1 film BUCCAL DAILY 08/06/20 12/18/20 Previous Rx's Medication Instructions Recorded gabapentin 1,200 mg PO TID #90 tab 12/24/20 hydroxyzine HCl 50 mg PO QID PRN #90 tab 12/24/20 nicotine 21 mg TRANSDERMAL DAILY #30 ea 12/24/20 propranolol 10 mg PO BID #30 tab 12/24/20 quetiapine 50 mg PO BIDWM #60 tab 12/24/20 quetiapine 200 mg PO BEDTIME #60 tab 12/24/20 sertraline 150 mg PO DAILY #90 tab 12/24/20 trazodone 150 mg PO BEDTIME #30 tab 12/24/20 Mental Status Exam Mental Status Exam Narrative: Appearance: casually groomed, fair hygiene in NAD Behavior:cooperative psychomotor: no agitation or retardation noted Speech:clear, normal rate/rhythm/volume, spontaneous Thought process:linear Thought content: no signs of psychosis, future oriented Mood: better Affect: congruent VH/AH:none SI:denies HI:denies Delusions:none Memory/cog: alert, oriented x 3. Data Data Completed and Pending Completed studies during hospitalization [Text1]: 12/18/20 12/18/20 12/19/20 16:02 18:55 08:02 Sodium Potassium Chloride Carbon Dioxide Anion Gap BUN Creatinine Estim Creat Clear Calc Estimated GFR Random Glucose Estimat Average Glucose 128 Hemoglobin A1c % 6.1 Calcium Total Bilirubin AST ALT Alkaline Phosphatase Total Protein Albumin Triglycerides Cholesterol LDL Cholesterol, Calc HDL Cholesterol Vitamin B12 Folate TSH Urine Opiates Screen Not Detected Ur Barbiturates Screen Not Detected Ur Phencyclidine Scrn Not Detected Ur Amphetamines Screen Not Detected U Benzodiazepines Scrn Not Detected Urine Cocaine Screen Not Detected U Marijuana (THC) Screen POSITIVE H COVID-19 ([place]) Negative COVID-19 Clin Com See Note 12/19/20 12/19/20 12/19/20 08:02 08:02 08:02 Sodium 142 Potassium 4.3 Chloride 109 H Carbon Dioxide 26 Anion Gap 11 L BUN 12 Creatinine 0.85 Estim Creat Clear Calc 141.3 Estimated GFR > 60 Random Glucose 130 H Estimat Average Glucose Hemoglobin A1c % Calcium 9.2 Total Bilirubin 0.2 AST 14 ALT 14 Alkaline Phosphatase 109 Total Protein 7.2 Albumin 4.1 Triglycerides 234 Cholesterol 208 LDL Cholesterol, Calc 131 HDL Cholesterol 31 Vitamin B12 203 Folate 10.0 TSH 1.23 Urine Opiates Screen Ur Barbiturates Screen Ur Phencyclidine Scrn Ur Amphetamines Screen U Benzodiazepines Scrn Urine Cocaine Screen U Marijuana (THC) Screen COVID-19 ([place]) COVID-19 Clin Com DS: Summary Hospital Course Hospital Course: Mr. Herrera is a 40 year-old male with hx of MDD, opioid use disorder in remission on suboxone who self presented to [facility] ED reporting increase depression, suicidal thoughts in context of ongoing conflict with as they go through divorce. In the ED, his utox was negative. On the unit, Mr. Herrera reports that him and his about 3 years ago. 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 Due to financial concerns, pt and his had agreed that she would buy him out the part of their marital house. In the meantime, pt has been staying home with kids and his left the home while continue to support pt financially. Pt reports in past 3 months there has been increasingly more conflict between both of them to the point that had restraining order against him and DCF is now involved. Pt reports that he feels as if is trying to use his hx of substance use against him. He denies relapsing for past 14 years and being fairly stable since psychiatrically. On the unit, pt adamantly denies suicidal or homicidal ideation. He identifies children as protective factors. He reports feeling stuck in that he is not financially stable. He can't fully explain why he has not been able to find a job. He reports he has been on same medications for several years and does not think these are the problem. Past Psychiatric History: IP: some in his 20's. APTU 07/2020;? OP: Dr. Greg Martin for psychopharmacology x 10 years [phone] and Lakeisha Mendoza for psychotherapy at [facility] [phone]. States he just started seeing Lakeisha and is now beginning to open up. PHP: [facility] Reports mental health hx since teens. Medical Evaluation Reviewed: Yes HOSPITAL COURSE Mr. Herrera was admitted on CV and placed on 15 minutes checks for safety. Pt reported feeling depressed, overwhelmed with current divorce process. He reports having no financial support as his soon to be ex has been the main bread winner. He expected to pay for him to stay at rooming house until he was able to get a job. Reasons for him not being able to have a job where unclear. Pt reported that at first due to long hx of substance use he had pending warrants but he also stated he took care of that legally 2 years ago. He reports he started adderall about 18 months ago as he felt he was not able to get out of the home and had motivation/attention problems but states he had not been able to hold a stable job. He also reported feeling overwhelmed due to him suspecting his was emptying his suboxone and adderall so that it seems as if he is misusing his medications. Pt reported having no friends or family who could support him during this process. To some extend he expected to continue being his financial source. We discussed risks, benefits and alternative treatment options. He reported current medications were fine. He did not think it was a medication issue as he reported sertraline had helped him with depression. He reported feeling much less overwhemed in the unit. He reported needing a respite from tumoltuos situation at home. And despite several of his outpatient providers recommending he moves out of the home, he declined. Only medication change during this admission was increase seroquel at bedtime to 200mg po qhs as pt reports poor sleep. Trazodone partially effective for sleep. His affect was gradually brighter. He was social with select peers. He was often seen smiling and socializing. His affect appeared much brighter when he was visible in unit. He reported decreased symptoms of depression. He denied suicidal ideation. He was eating well. Sleep- still some difficulties staying asleep but reported seroquel was helpful. There were no incidences of disruptive behaviors nor need of restraints. Prior to discharge team tried calling his , as pt reported he could return there. we were unable to leave messages to her as her VM was full and phone was never answered. Status at Discharge Cognitive/behavioral status at discharge: Pt adamantly denies suicidal or homicidal ideation. His affect is brighter. No signs of aggression towards self or others. Functional status at discharge: independent ambulation Overall status at discharge: patient is progressing back to baseline Time Spent with Patient Time attestation: Total time spent providing and/or coordinating discharge services: Time spent: Greater than 30 minutes Discharge Plan Discharge Patient Disposition: Home, Self-Care Discharge Diagnosis: MDD, recurrent, moderate Referrals: [facility] [Other] - 12/27/20 9:00 am (Please contact [facility] Intake at the above number if you do not hear from them by Wednesday12/30/20) [facility] [Other] - 1 Week (You have been added to the [facility] waitlist and will be contacted once when a spot becomes available. Please contact the above number for a status update on your referral if you have not heard back by 01/06/21) [facility] [Other] - 12/27/20 10:00 am (The assessment is on Wednesday12/27/20 @ 10AM, but you will begin the program on Wednesday12/30/20) [facility] [Other] - 1 Week (The program is a peer-led recovery support center and is open from 9-5PM Wednesday-Wednesday. Please call the above number if you are interested in participating in groups and/or to obtain a flag football coach) [facility] (psychiatry) [Other] - 01/15/21 3:20 pm (This appointment is via Telehealth) [facility] (psychiatry) [Other] - 02/12/21 9:00 am (This appointment is via Telehealth) Lakeisha Alcantara (therapy) [Other] - 12/26/20 9:00 am (This appointment is via Telehealth) Olga Saxena NP [Nurse Practitioner] - 01/02/21 1:45 pm (in office) Discharge Medications: New gabapentin 600 mg Tablet 1,200 mg PO TID Qty: 90 RF: 1 hydroxyzine HCl 50 mg Tablet 50 mg PO QID PRN (Reason: Anxiety) Qty: 90 RF: 0 quetiapine 100 mg Tablet 200 mg PO BEDTIME Qty: 60 RF: 0 propranolol 10 mg Tablet 10 mg PO BID Qty: 30 RF: 1 Continued buprenorphine-naloxone [Suboxone] 8-2 mg Film 1 film BUCCAL DAILY RF: 0 Discontinued dextroamphetamine-amphetamine [Adderall] 10 mg Tablet 20 mg PO DAILY RF: 0 hydroxyzine HCl 50 mg Tablet 50 mg PO QID PRN (Reason: Anxiety) RF: 0 trazodone 100 mg Tablet 100 mg PO BEDTIME RF: 0 gabapentin [Neurontin] 600 mg Tablet 1,200 mg PO TID Qty: 42 RF: 0 propranolol 10 mg Tablet 10 mg PO BID Qty: 14 RF: 0 quetiapine 50 mg Tablet 50 mg PO TID Qty: 21 RF: 0 sertraline 100 mg tablet 150 mg PO DAILY Qty: 45 RF: 0 No Action dextroamphetamine-amphetamine [Adderall XR] 20 mg capsule,extended release 24hr 20 mg PO DAILY RF: 0 nicotine 21 mg/24 hr patch 24 hour 1 patch topical DAILY RF: 0 sertraline 50 mg tablet 200 mg PO DAILY RF: 0 nicotine (polacrilex) [Nicorette] 4 mg Gum 4 mg BUCCAL Q2H PRN (Reason: Nicotine Cravings) RF: 0 quetiapine 50 mg tablet 50 mg PO BIDWM@0800,1200 RF: 0 Discharge Orders: Discharge Order (Routine); Ordered 12/24/20 Ordered By: Robyn Villegas Diet: regular diet Activity on Discharge: As tolerated Stand Alone Forms: Patient Portal Discharge page, Community Support Care Plan Goals: 1. Maintain mood 2. No SI/HI Health Concerns: 1. Follow up with PCP Plan of Treatment: 1. Take medications as prescribed. 2. Go to nearest ED or call 911 in event of emergency. Assessment: 1. No SI/HI, less overwhelmed, less depressed. Future oriented and hopeful. Discharge Date/Time: 12/24/20 12:00
== END 2020-12-24 12:00 | disposition home or self-care (01) | DRG 751 ==
LOC: HO.ED 21:55 → HO.PM5 21:56
PROVIDERS: Nurse Practitioner Family; Admitting Provider Social Worker; Emergency Provider Internal Medicine; PCP Internal Medicine; Visit Provider Social Worker
DX: F33.2 Major depressive disorder, recurrent severe without psychotic features (principal); R45.851 Suicidal ideations; F11.20 Opioid dependence, uncomplicated; F17.210 Nicotine dependence, cigarettes, uncomplicated; F14.20 Cocaine dependence, uncomplicated; Z71.6 Tobacco abuse counseling; Z20.822 Contact with and (suspected) exposure to COVID-19; Z86.19 Personal history of other infectious and parasitic diseases; Z79.899 Other long term (current) drug therapy
CPT/HCPCS: 36415; 80053; 80061; 80307; 82607; 82746; 83036; 84443; 87635; 99285

== ENCOUNTER 2021-01-02 08:45 | Outpatient (RCR) | payer OTHER, SELFPAY ==
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
[2020-12-30 12:44] VITALS: BMI 30.3
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
--- NOTE | 2020-12-30 14:30 | PC.NURSE ---
I attempted to call pt re: covering his iron cross tattoo while in group. He did not answer the phone and his mailbox was full so I was unable to reach him or leave a message.
--- NOTE | 2020-12-31 14:05 | PC.NURSE ---
Case open in clinical team meeting
--- NOTE | 2021-01-01 12:10 | PC.NURSE ---
When the client did not come to community meeting I called him. He states that he has an appointment with his doctor today and will be in tomorrow.
--- NOTE | 2021-01-01 13:12 | PC.NURSE ---
Emailed patient requested information regarding Smoking Cessation Materials.
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
--- NOTE | 2021-01-03 09:32 | PC.NURSE ---
Patient discharged from the program today as he was admitted psychiatrically at [facility].
== END 2021-01-03 07:48 | disposition home or self-care (01) ==
LOC: HO.PHPA 08:45
PROVIDERS: Visit Provider Psychiatry & Neurology Psychiatry
DX: F33.2 Major depressive disorder, recurrent severe without psychotic features (principal); F12.20 Cannabis dependence, uncomplicated; F11.21 Opioid dependence, in remission; Z79.899 Other long term (current) drug therapy
CPT/HCPCS: 90791; 90853

== ENCOUNTER 2021-01-02 10:41 | Inpatient (IN) | payer OTHER, SELFPAY ==
--- NOTE | 2021-01-02 | ECG_ITS ---
Test Reason : TACHYCARDIC Blood Pressure : / mmHG Vent. Rate : 096 BPM Atrial Rate : 096 BPM P-R Int : 168 ms QRS Dur : 084 ms QT Int : 330 ms P-R-T Axes : 050 054 023 degrees QTc Int : 416 ms Normal sinus rhythm Normal ECG No previous ECGs available Referred By: Karen Pool Electronically Signed By:Bony Ibarra
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
--- NOTE | 2021-01-02 11:41 | PHA.MEDREC ---
Pharmacy Consult ? Medication Reconciliation Pharmacy has completed the medication reconciliation. There are no remarkable issues for provider's attention. Patient is requesting a new nicotine patch as he does not have one on now. Ruthann Myers, AnneD
[2021-01-02] MEDS: Nicotine 21 MG PATCH.TD24 TRANSDERMA (11:51)
[2021-01-02 11:58] LABS: MANUAL DIFF FLAG NO
[2021-01-02 12:01] LABS: Basophils Percent Auto 0.3 % (0-2); Eosinophils Absolute Auto 0.1 X10*3/uL (0.0-0.4); Eosinophils Percent Auto 1.1 % (0-4); Hematocrit 40.9 % (42-52); Hemoglobin 12.7 g/dl (14.0-18.0); Imm Gran Abs Auto 0.03 X10*3/uL (0.00-0.03); Imm Gran Pct Auto 0.3 % (0.0-0.4); Lymphocytes Absolute Auto 1.9 X10*3/uL (1.2-4.9); Lymphocytes Percent Auto 16.1 % (20-40); Mean Corpuscular HGB Conc 31.1 g/dl (31.0-36.0); Mean Corpuscular Volume 77.3 fL (80-98); Mean Platelet Volume 9.1 fL (9.4-12.4); Monocytes Absolute Auto 0.7 X10*3/uL (0.1-1.2); Monocytes Percent Auto 6.3 % (2-11); Neutrophils Absolute Auto 8.7 X10*3/uL (2.0-8.3); Neutrophils Percent Auto 75.9 % (45-73); Platelet Count 244 X10*3/uL (160-400); Red Blood Count 5.29 X10*6/uL (4.60-5.80); Red Cell Distribution Width 16.5 % (11.0-16.0); White Blood Count 11.5 X10*3/uL (4.8-10.8)
--- NOTE | 2021-01-02 12:06 | ED_ITS ---
HPI - Psych General Chief Complaint: Psychiatric Symptoms Stated Complaint: Crisis Time Seen by Provider: 01/02/21 11:22 Source: patient Mode of arrival: ambulatory Limitations: no limitations History of Present Illness HPI Narrative: 40-year-old male with a past medical history of depression, former opiate abuse currently on Suboxone, high cholesterol here with complaints of increasing depression, thoughts of self-harm. He tells me he has been hearing voices from his dad telling him to hurt himself. He is currently in partial what feels like he needs higher level of care. He denies any homicidal ideations. No physical complaints. He does smoke marijuana but denies any additional substance or alcohol use. Related Data Home Medications Medication Instructions Recorded Confirmed buprenorphine 8 mg-naloxone 2 mg 1 film BUCCAL DAILY 08/06/20 01/02/21 sublingual film (Suboxone) dextroamphetamine-amphetamine ER 20 mg PO DAILY 01/02/21 01/02/21 20 mg 24hr capsule,extend release (Adderall XR) nicotine (polacrilex) 4 mg gum 4 mg BUCCAL Q2H PRN 01/02/21 01/02/21 (Nicorette) nicotine 21 mg/24 hr daily 1 patch TOPICAL DAILY 01/02/21 01/02/21 transdermal patch quetiapine 50 mg tablet 50 mg PO BIDWM@0800,1200 01/02/21 01/02/21 sertraline 50 mg tablet 200 mg PO DAILY 01/02/21 01/02/21 Previous Rx's Medication Instructions Recorded gabapentin 600 mg tablet 1,200 mg PO TID #90 tab 12/24/20 hydroxyzine HCl 50 mg tablet 50 mg PO QID PRN #90 tab 12/24/20 propranolol 10 mg tablet 10 mg PO BID #30 tab 12/24/20 quetiapine 100 mg tablet 200 mg PO BEDTIME #60 tab 12/24/20 Allergies Allergy/AdvReac Type Severity Reaction Status Date / Time No Known Allergies Allergy Verified 12/18/20 15:20 Review of Systems Review of Systems: Yes all other systems are reviewed and are negative Constitutional: Constitutional: Reports no additional constitutional complaints, Denies body ache(s), Denies chills, Denies fever(s), Denies headache(s) and Denies weakness Eyes: Eyes: Reports no additional eye complaints and Denies change in vision ENT: Reports system reviewed and no additional complaints, except as documented, Denies dizziness, Denies headache(s), Denies nasal congestion, Denies nasal discharge and Denies neck pain Cardiovascular: Cardiovascular: Reports no additional cardiovascular complaints, Denies chest pain, Denies leg edema and Denies dyspnea Respiratory: Respiratory: Reports no additional respiratory complaints, Denies cough and Denies dyspnea Gastrointestinal: Gastrointestinal: Reports no additional gastrointestinal complaints, Denies abdominal pain, Denies diarrhea, Denies nausea and Denies vomiting Genitourinary: Genitourinary: Denies urinary incontinence Musculoskeletal: Musculoskeletal: Reports no additional musculoskeletal co mplaints, Denies back pain, Denies arthralgias, Denies joint swelling, Denies neck pain, Denies numbness and Denies tingling Integumentary/Breasts: Skin/Breast: Reports system reviewed and no additional complaints, except as docu and Denies rash Neurologic: Reports system reviewed and no additional complaints, except as documented, Denies Abnormal speech present, Denies dizziness, Denies headache(s), Denies numbness, Denies tingling and Denies weakness Psychiatric: Psychiatric: Reports anxiety, Reports depression, Denies visual hallucinations, Denies hallucinations, Denies tactile hallucinations, Denies homicidal ideation and Reports suicidal ideation PMFSH Past Medical History Attestation statement: The following information was validated with the patient. Source: old records reviewed and nursing notes reviewed Medical History Cannabis use disorder, severe, dependence Hepatitis C HTN (hypertension) Opioid use disorder, severe, in sustained remission, on maintenance therapy Recurrent major depression-severe Social History Social History Household Members: Spouse and Children Housing: House Do you presently have visiting nurse or other home services: No Patient Tobacco Use Status: Current everyday Tobacco user Tobacco use type: Cigarette Cigarette Packs Per Day: 1 Years Smoked: Pt did not say e-Cigarette/Vaping Use: Currently Using Second Hand Smoke Exposure: No Substance Use Type: Marijuana Advance Directives: No Advance Directives Information Provided: Yes Healthcare Proxy: No Guardian: No service: No Sexual orientation: Straight/Heterosexual Physical Exam Vital Signs: Vital Signs: Last Vital Signs Temp 98 F 01/02/21 12:59 Pulse 114 H 08/05/21 12:59 Resp 18 01/02/21 12:59 BP 140/90 H 01/02/21 12:59 Pulse Ox 96 01/02/21 12:59 Body Mass Index 28.4 Const: General: cooperative, healthy appearing, comfortable and no acute distress Orientation/consciousness: patient oriented x3 Limitations: no limitations HENMT: Head: Yes normal to inspection Ears: hearing grossly normal bilaterally and TM's normal bilaterally General nose exam: Normal external nose present Face and sinus: Yes normal facial exam Mouth: Normal oral and palatal mucosa present Throat: Yes posterior oropharynx normal, Yes tonsils normal and Yes uvula midline Eyes: General: appearance normal, both eyes and all related structures Pupils: Equal, round and reactive pupils present Neck: Neck: Yes normal visual inspection Chest: Chest palpation & inspection: normal inspection of the chest Resp: Effort & Inspection: normal respiratory effort Auscultation: clear to auscultation bilaterally Cardio: Rate: regular rate Rhythm: regular rhythm Peripheral pulses: Peripheral pulses 2+ throughout GI: Inspection: Yes normal to inspection Palpation (GI): Soft to palpation and nontender Auscultation: normal bowel sounds Back/Spine/Pelvis: Thoracic/Lumbar Spine: thoracic and lumbar spine normal to inspection Skin: General skin exam: no rashes or lesions noted Neuro: General: patient oriented x3, no focal motor deficits and normal sensation to monofilament Cranial nerves: Yes CN's II-XII intact bilaterally and Yes Equal, round and reactive pupils present Cognition (Neuro): normal cognition Speech: No Abnormal speech present Gait exam (Neuro): Normal gait present Motor exam (neuro): 5/5 motor strength present throughout Sensory Exam: Normal double simultaneous stimulation for sensation Extrem: General: Yes normal to inspection Course Course Course Narrative: 40-year-old male here with depression, thoughts of self-harm despite being and partial and taking medications as prescribed. No physical complaints. No concern for acute ingestion or trauma. Will check labs, drug screen, COVID screen. Will involve care team for evaluation -1330-Seen by care team. Plan for inpatient bed search as voluntary. All medications reconciled. -1900-Placed in physician observation pending disposition -2100-Sign out to night team pending above. MDM - Psych Medical Records Attestation: I reviewed the patient's medical records. Lab Data Attestation: I reviewed the patient's lab results. Result diagrams: 01/02/21 11:51 01/02/21 11:51 Labs: Lab Results 01/02/21 01/02/21 01/02/21 Range/Units 11:51 11:51 11:51 WBC 11.5 H (4.8-10.8) X10*3/uL RBC 5.29 (4.60-5.80) X10*6/uL Hgb 12.7 L (14.0-18.0) g/dl Hct 40.9 L (42-52) % MCV 77.3 L (80-98) fL MCH 24.0 L (27.0-33.0) pg MCHC 31.1 (31.0-36.0) g/dl RDW 16.5 H (11.0-16.0) % Plt Count 244 (160-400) X10*3/uL MPV 9.1 L (9.4-12.4) fL Immature Gran % (Auto) 0.3 (0.0-0.4) % Neut % (Auto) 75.9 H (45-73) % Lymph % (Auto) 16.1 L (20-40) % Hickman % (Auto) 6.3 (2-11) % Eos % (Auto) 1.1 (0-4) % Baso % (Auto) 0.3 (0-2) % Lymph # (Auto) 1.9 (1.2-4.9) X10*3/uL Hickman # (Auto) 0.7 (0.1-1.2) X10*3/uL Eos # (Auto) 0.1 (0.0-0.4) X10*3/uL Baso # (Auto) 0.0 (0.0-0.2) X10*3/uL Abs Immat Gran (auto) 0.03 (0.00-0.03) X10*3/uL Absolute Neuts (auto) 8.7 H (2.0-8.3) X10*3/uL Absolute Nucleated RBC 0.000 (0.0-0.012) X10*3/uL Nucleated RBC % (auto) 0.0 (0.0-0.2) /100WBC Sodium 141 (135-145) mmol/L Potassium 4.4 (3.3-5.1) mmol/L Chloride 105 (96-108) mmol/L Carbon Dioxide 28 (22-29) mmol/L Anion Gap 12 (12-20) BUN 13 (9-16) mg/dL Creatinine 0.85 (0.5-1.4) mg/dL Estim Creat Clear Calc TNP Estimated GFR > 60 Random Glucose 98 (60-115) mg/dL Calcium 9.1 (8.4-10.2) mg/dL Total Bilirubin < 0.2 (0.0-1.0) mg/dL Direct Bilirubin < 0.2 (0.0-0.5) mg/dL AST 14 (5-37) U/L ALT 19 (0-40) U/L Alkaline Phosphatase 118 H (39-117) U/L Total Protein 7.2 (6.5-8.0) g/dL Albumin 3.9 (3.5-5.0) g/dL Urine Opiates Screen (Not Detect) Ur Barbiturates Screen (Not Detect) Ur Phencyclidine Scrn (Not Detect) Ur Amphetamines Screen (Not Detect) U Benzodiazepines Scrn (Not Detect) Urine Cocaine Screen (Not Detect) U Marijuana (THC) Screen (Not Detect) Ethyl Alcohol mg/dL COVID-19 ([place]) Negative (Negative) COVID-19 Clin Com See Note 01/02/21 01/02/21 Range/Units 11:51 18:18 WBC (4.8-10.8) X10*3/uL RBC (4.60-5.80) X10*6/uL Hgb (14.0-18.0) g/dl Hct (42-52) % MCV (80-98) fL MCH (27.0-33.0) pg MCHC (31.0-36.0) g/dl RDW (11.0-16.0) % Plt Count (160-400) X10*3/uL MPV (9.4-12.4) fL Immature Gran % (Auto) (0.0-0.4) % Neut % (Auto) (45-73) % Lymph % (Auto) (20-40) % Hickman % (Auto) (2-11) % Eos % (Auto) (0-4) % Baso % (Auto) (0-2) % Lymph # (Auto) (1.2-4.9) X10*3/uL Hickman # (Auto) (0.1-1.2) X10*3/uL Eos # (Auto) (0.0-0.4) X10*3/uL Baso # (Auto) (0.0-0.2) X10*3/uL Abs Immat Gran (auto) (0.00-0.03) X10*3/uL Absolute Neuts (auto) (2.0-8.3) X10*3/uL Absolute Nucleated RBC (0.0-0.012) X10*3/uL Nucleated RBC % (auto) (0.0-0.2) /100WBC Sodium (135-145) mmol/L Potassium (3.3-5.1) mmol/L Chloride (96-108) mmol/L Carbon Dioxide (22-29) mmol/L Anion Gap (12-20) BUN (9-16) mg/dL Creatinine (0.5-1.4) mg/dL Estim Creat Clear Calc Estimated GFR Random Glucose (60-115) mg/dL Calcium (8.4-10.2) mg/dL Total Bilirubin (0.0-1.0) mg/dL Direct Bilirubin (0.0-0.5) mg/dL AST (5-37) U/L ALT (0-40) U/L Alkaline Phosphatase (39-117) U/L Total Protein (6.5-8.0) g/dL Albumin (3.5-5.0) g/dL Urine Opiates Screen Not Detected (Not Detect) Ur Barbiturates Screen Not Detected (Not Detect) Ur Phencyclidine Scrn Not Detected (Not Detect) Ur Amphetamines Screen Not Detected (Not Detect) U Benzodiazepines Scrn Not Detected (Not Detect) Urine Cocaine Screen Not Detected (Not Detect) U Marijuana (THC) Screen POSITIVE H (Not Detect) Ethyl Alcohol < 10 mg/dL COVID-19 ([place]) (Negative) COVID-19 Clin Com Discharge Plan Discharge Clinical Impression: Depression Patient Disposition: Admitted As Inpatient
[2021-01-02 12:20] LABS: COVID-19 Test Negative (Negative)
[2021-01-02 12:25] LABS: Ethanol < 10 mg/dL
[2021-01-02 12:44] LABS: Alanine Aminotransferase 19 U/L (0-40); Albumin Level 3.9 g/dL (3.5-5.0); Alkaline Phosphatase 118 U/L (39-117); Anion Gap 12 (12-20); Aspartate Amino Transferase 14 U/L (5-37); Bilirubin Direct < 0.2 mg/dL (0.0-0.5); Bilirubin Total < 0.2 mg/dL (0.0-1.0); Blood Urea Nitrogen 13 mg/dL (9-16); Calcium 9.1 mg/dL (8.4-10.2); Carbon Dioxide 28 mmol/L (22-29); Chloride 105 mmol/L (96-108); Estimated Glomerular Filt Rate > 60; Glucose Random 98 mg/dL (60-115); Potassium 4.4 mmol/L (3.3-5.1); Sodium 141 mmol/L (135-145); Total Protein 7.2 g/dL (6.5-8.0)
[2021-01-02 12:59] VITALS: BP 140/90; PULSE 114; RESP 18; TEMP 36.6; O2SAT 96; BMI 28.4
[2021-01-02] MEDS: Gabapentin 600 MG TABLET 1200 MG PO ×2 (14:03→21:41)
--- NOTE | 2021-01-02 15:11 | MHC.CARE ---
Patient was evaluated by the CARE Team and determined to need inpatient psychiatric care, he is voluntary for treatment and will be admitted to this hospital. Providers updated.
--- NOTE | 2021-01-02 17:14 | PC.NURSE ---
Pt resting in bed with eyes closed.
[2021-01-02 18:47] LABS: Amphetamine Screen Urine Not Detected (Not Detect); Barbiturates, Urine Not Detected (Not Detect); Benzodiazepines Screen Urine Not Detected (Not Detect); Cannabinoid Screen Urine POSITIVE (Not Detect); Cocaine Screen Urine Not Detected (Not Detect); Opiate Screen Urine Not Detected (Not Detect); Phencyclidine Screen Urine Not Detected (Not Detect)
[2021-01-02 21:40] VITALS: BP 137/80; PULSE 73
[2021-01-02] MEDS: Propranolol HCL 10 MG TABLET PO (21:40)
[2021-01-02] MEDS: QUEtiapine Fumarate 200 MG TABLET PO (21:41)
[2021-01-02 21:42] VITALS: BP 137/80; PULSE 73; RESP 16; TEMP 36.7; O2SAT 94
--- NOTE | 2021-01-02 21:43 | PC.NURSE ---
Patient calm and quiet, resting in his room, compliant with medication, RN to RN completed with M3, awaiting admission order from M3 Psychiatrist, SILAS, will continue to monitor
[2021-01-02 22:42] VITALS: BP 143/90; PULSE 85; RESP 18; TEMP 36.6; O2SAT 95
--- NOTE | 2021-01-02 23:13 | PC.ADMIT ---
PT admitted to this unit for first time from [facility] by Wheelchair at 22:35, PT recently on M-5. PT is A+Ox4, Legal status is CV, PT denies SI/HI and has contracted for safety on unit. PT has had several previous admissions to [facility]. PT unhappy with current living situation as he lives with his ex , her GF and their children. PT admits to using Marijuana on a daily basis. PT has several recent cigarette wilde on upper left arm.
[2021-01-03 07:40] VITALS: BP 134/87; PULSE 77; RESP 18; TEMP 37.1; O2SAT 95
[2021-01-03 08:36] VITALS: BP 132/70; PULSE 68
[2021-01-03] MEDS: Gabapentin 600 MG TABLET 1200 MG PO ×3 (08:36→21:35)
[2021-01-03] MEDS: Buprenorphine/Naloxone 8/2 mg FILM 1 FILM BUCCAL ×2 (08:36→08:38)
[2021-01-03] MEDS: Sertraline HCL 50 MG TABLET 200 MG PO (08:36)
[2021-01-03] MEDS: Propranolol HCL 10 MG TABLET PO ×2 (08:36→21:35)
[2021-01-03] MEDS: Nicotine 21 MG PATCH.TD24 TRANSDERMA (08:40)
[2021-01-03] MEDS: QUEtiapine Fumarate 50 MG TABLET PO ×2 (08:45→12:21)
[2021-01-03] MEDS: Acetaminophen 325 MG TABLET 650 MG PO ×2 (08:45→14:52)
[2021-01-03] MEDS: Nicotine Polacrilex 2 MG GUM 4 MG BUCCAL ×4 (10:30→21:35)
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
[2021-01-03] MEDS: Dextroamphetamine Sulfate 5 MG TABLET 20 MG PO (12:47)
[2021-01-03 18:00] VITALS: BP 136/82; PULSE 88; TEMP 37.2; O2SAT 94
[2021-01-03 21:35] VITALS: BP 147/96; PULSE 70
[2021-01-03] MEDS: QUEtiapine Fumarate 100 MG TABLET 300 MG PO (21:35)
[2021-01-04 08:30] VITALS: BP 136/86; PULSE 82; RESP 18; TEMP 36.7; O2SAT 96
[2021-01-04 09:14] VITALS: BP 136/86; PULSE 83
[2021-01-04] MEDS: Propranolol HCL 10 MG TABLET PO ×2 (09:14→21:19)
[2021-01-04] MEDS: Gabapentin 600 MG TABLET 1200 MG PO ×3 (09:15→21:18)
[2021-01-04] MEDS: DULoxetine HCl 60 MG CAPSULE.DR PO (09:16)
[2021-01-04] MEDS: QUEtiapine Fumarate 50 MG TABLET PO ×2 (09:17→12:04)
[2021-01-04] MEDS: Nicotine 21 MG PATCH.TD24 TRANSDERMA ×2 (09:17→09:47)
[2021-01-04] MEDS: Dextroamphetamine Sulfate 5 MG TABLET 20 MG PO (09:19)
[2021-01-04] MEDS: Nicotine Polacrilex 2 MG GUM 4 MG BUCCAL ×4 (09:19→21:18)
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
[2021-01-04] MEDS: QUEtiapine Fumarate 100 MG TABLET 300 MG PO (21:18)
[2021-01-04 21:19] VITALS: BP 149/97; PULSE 75
[2021-01-04] MEDS: Acetaminophen 325 MG TABLET 650 MG PO (21:19)
[2021-01-04] MEDS: Prazosin HCL 1 MG CAPSULE PO (21:19)
[2021-01-04 21:43] VITALS: TEMP 36.8; O2SAT 97
[2021-01-05 08:40] VITALS: BP 119/79; PULSE 71; RESP 16; TEMP 36.8; O2SAT 97
[2021-01-05] MEDS: Buprenorphine/Naloxone 8/2 mg FILM 1 FILM BUCCAL (09:17)
[2021-01-05] MEDS: Nicotine 21 MG PATCH.TD24 TRANSDERMA (09:17)
[2021-01-05] MEDS: Dextroamphetamine Sulfate 5 MG TABLET 20 MG PO (09:18)
[2021-01-05 09:19] VITALS: BP 119/79; PULSE 71
[2021-01-05] MEDS: DULoxetine HCl 60 MG CAPSULE.DR PO (09:19)
[2021-01-05] MEDS: Propranolol HCL 10 MG TABLET PO ×2 (09:19→20:14)
[2021-01-05] MEDS: QUEtiapine Fumarate 50 MG TABLET PO ×2 (09:19→13:02)
[2021-01-05] MEDS: Gabapentin 600 MG TABLET 1200 MG PO ×3 (09:19→20:13)
[2021-01-05] MEDS: Nicotine Polacrilex 2 MG GUM 4 MG BUCCAL ×2 (09:50→13:04)
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
[2021-01-05] MEDS: QUEtiapine Fumarate 100 MG TABLET PO (14:59)
[2021-01-05] MEDS: QUEtiapine Fumarate 100 MG TABLET 300 MG PO (20:13)
[2021-01-05 20:14] VITALS: BP 146/81; PULSE 80
[2021-01-05] MEDS: Prazosin HCL 1 MG CAPSULE 2 MG PO (20:14)
[2021-01-06 06:00] VITALS: BP 125/88; PULSE 87; RESP 20; TEMP 36.1; O2SAT 98
[2021-01-06] MEDS: Buprenorphine/Naloxone 8/2 mg FILM 1 FILM BUCCAL (08:59)
[2021-01-06] MEDS: Dextroamphetamine Sulfate 5 MG TABLET 20 MG PO (09:00)
[2021-01-06] MEDS: DULoxetine HCl 60 MG CAPSULE.DR PO (09:01)
[2021-01-06] MEDS: Gabapentin 600 MG TABLET 1200 MG PO ×3 (09:01→21:02)
[2021-01-06] MEDS: Propranolol HCL 10 MG TABLET PO ×2 (09:01→21:02)
[2021-01-06] MEDS: Nicotine 21 MG PATCH.TD24 TRANSDERMA (09:02)
[2021-01-06] MEDS: QUEtiapine Fumarate 50 MG TABLET PO ×2 (09:07→13:31)
--- NOTE | 2021-01-06 09:07 | P.PNPSI_ITS ---
Subjective Subjective Date of Service: 01/07/21 Reason For Visit: Si Subjective Notes: Conditional Voluntary Interim History: Pt continues to report intermittent voices of his father and his telling him others will be better off without him. He reports having t hese voices since August. He continues to endorse depressed mood, hopeless, anhedonia. He has been visible at times in unit, minimally interactive with peers but pleasant on approach. He reports intermittent suicidal ideation but denies any plan or intent. 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 GI: No c/o Nausea, Vomiting, diarrhea, constipation or heartburn Yes all other systems are reviewed and are negative Constitutional: Reports no additional constitutional complaints, Denies body ache(s), Denies chills, Denies fever(s), Denies headache(s) and Denies weakness Eyes: Reports no additional eye complaints and Denies change in vision Reports system reviewed and no additional complaints, except as documented, Denies dizziness, Denies headache(s), Denies nasal congestion, Denies nasal discharge and Denies neck pain Cardiovascular: Reports no additional cardiovascular complaints, Denies chest pain, Denies leg edema and Denies dyspnea Respiratory: Reports no additional respiratory complaints, Denies cough and Denies dyspnea Gastrointestinal: Reports no additional gastrointestinal complaints, Denies abdominal pain, Denies diarrhea, Denies nausea and Denies vomiting Genitourinary: Denies urinary incontinence Musculoskeletal: Reports no additional musculoskeletal complaints, Denies back pain, Denies arthralgias, Denies joint swelling, Denies neck pain, Denies numbness and Denies tingling Skin/Breast: Reports system reviewed and no additional complaints, except as docu and Denies rash Reports system reviewed and no additional complaints, except as documented, Denies Abnormal speech present, Denies dizziness, Denies headache(s), Denies numbness, Denies tingling and Denies weakness Psychiatric: Reports anxiety, Reports depression, Denies visual hallucinations, Denies hallucinations, Denies tactile hallucinations, Denies homicidal ideation and Reports suicidal ideation Mental Status Exam Mental Status Exam Narrative: Appearance: casually groomed, fair hygiene, NAD Behavior: cooperative Speech: clear, normal rate/rhythm/volume, spontaneous TP: linear TC: hopeless, hearing derogatory voices of father and Mood: depressed Affect: constricted SI: passive, no plan or intent HI: none AH: hearing voices of father and (new for him) VH: none Delusions: none Insight/judgment: fair x 2. Memory/cog: alert, oriented x 3. grossly intact to conversational testing. Diagnostics Vital Signs (24Hr): Vital Signs - 24 hr 01/06/21 20:16 01/06/21 21:01 01/06/21 21:02 Temperature 97.6 F Pulse Rate 88 88 88 Respiratory Rate 18 Blood Pressure 143/89 H 143/89 H 143/89 H Pulse Oximetry 93 01/07/21 06:00 Temperature 98.1 F Pulse Rate 79 Respiratory Rate 18 Blood Pressure 128/90 H Pulse Oximetry 97 Body Mass Index 28.4 Labs Results: 01/02/21 11:51 01/02/21 11:51 Medications Medications Current Medications Generic Name Dose Route Start Last Admin Trade Name Freq PRN Reason Stop Dose Admin Acetaminophen 650 mg 01/02/21 23:10 01/04/21 21:19 Acetaminophen 325 Mg Tablet PO 650 mg Q6H PRN Administration Headache/Pain Mild Scale (1-3) Al Hydroxide/Mg Hydroxide 30 ml 01/02/21 23:10 Magnesium Hydrox/Alum Hydrox 30 Ml Oral.Susp PO Q6H PRN Heartburn/Nausea Buprenorphine/Naloxone 1 film 01/03/21 09:00 01/07/21 09:01 Buprenorphine/Naloxone 8/2 Mg Film BUCCAL 1 film DAILY SHAHRZAD Administration Duloxetine HCl 60 mg 01/04/21 09:00 01/07/21 09:00 Duloxetine Hcl 60 Mg Capsule.Dr PO 60 mg DAILY SHAHRZAD Administration Gabapentin 1,200 mg 01/02/21 15:00 01/07/21 09:00 Gabapentin 600 Mg Tablet PO 1,200 mg TID SHAHRZAD Administration Hydroxyzine HCl 50 mg 01/02/21 13:38 Hydroxyzine Hcl 50 Mg Tablet PO QID PRN Anxiety Magnesium Hydroxide 30 ml 01/02/21 23:10 Milk Of Magnesia 30 Ml Oral.Susp PO DAILY PRN Constipation Nicotine 21 mg 01/03/21 09:00 01/06/21 09:02 Nicotine 21 Mg Patch.Td24 TRANSDERMA 21 mg DAILY SHAHRZAD Administration Nicotine Polacrilex 4 mg 01/02/21 13:38 01/06/21 18:36 Nicotine Polacrilex 2 Mg Gum BUCCAL 4 mg Q2H PRN Administration Nicotine Cravings Prazosin HCl 2 mg 01/05/21 21:00 01/06/21 21:01 Prazosin Hcl 1 Mg Capsule PO 2 mg BEDTIME SHAHRZAD Administration Protocol Propranolol HCl 10 mg 01/02/21 21:00 01/07/21 09:00 Propranolol Hcl 10 Mg Tablet PO 10 mg BID SHAHRZAD Administration Protocol Quetiapine Fumarate 50 mg 01/03/21 08:00 01/07/21 09:04 Quetiapine Fumarate 50 Mg Tablet PO 50 mg BIDWM@0800,1200 SHAHRZAD Administration Quetiapine Fumarate 300 mg 01/03/21 21:00 01/06/21 21:02 Quetiapine Fumarate 100 Mg Tablet PO 300 mg BEDTIME SHAHRZAD Administration Quetiapine Fumarate 100 mg 01/05/21 14:12 01/06/21 21:03 Quetiapine Fumarate 100 Mg Tablet PO 100 mg Q4H PRN Administration auditory hallucinations Trazodone HCl 50 mg 01/02/21 23:10 Trazodone Hcl 50 Mg Tablet PO BEDTIME PRN Insomnia Allergies Allergies Allergy/AdvReac Type Severity Reaction Status Date / Time No Known Allergies Allergy Verified 12/18/20 15:20 Assessment & Plan Assessment & Plan (1) Major depressive disorder with psychotic features: Status: Acute Code(s): F32.3 - Major depressive disorder, single episode, severe with psychotic features Assessment and Plan: 1. continue cymbalta 2. continue seroquel- will adjust dose to target AH 3. agrees to d/c adderall as it may worsened AH. 4. aftercare planning Assessment and Plan: Brandon is a 40 y.o. male who self presented to [facility] and carries dx of ADHD, BEE, and MDD with psychotic features. Presents with depressed mood, tearfulness, increased anxiety, hyposomnia, perceptual disturbances in the form of AH, suicid al ideation, urges for self harm, urges to relapse on heroin, and poor appetite. He reports remote trial on Prozac, unable to remember but says he thinks he didn?t like it. Also reports adjunct treatment with Wellbutrin, also says he is unable to say if this helped, does not think he took it long enough. Says he has been on sertraline for many years, recently increased to 200 mg at [facility]. Plan: 1. Continue Cymbalta 60 mg QD to target sx of depression, anxiety, and may help with back pain. 2. Continue seroquel to 300 mg QHS to target sx of AH, mood stability, and poor sleep. seroquel 100 mg Q4H PRN CAH started 01/05 per pt request for more aggressive mgmt of AH. 3. D/C adderall 20 mg QD (on XR outpatient but given IR due to hospital formulary)- as it may worsened AH 4. Continue gabapentin 1200 mg TID for anxiety, pain, mood stability 5. Continue propranolol 10 mg BID for anxiety, HAs, HTN 6. Continue suboxone 8/2 mg for MAT 7. start prazosin for nightmares and insomnia in PTSD at 1 mg QHS as of 01/04, increased to 2 mg QHS as of 01/05. 8. Monitor response to medications. 9. Monitor for safety in the milieu. Discharge on stabilization. Patient seen. Chart reviewed. Discussed with team. Greater than 50% of the session was spent on counseling and/or coordination of care Patient educated on: medication risk/benefits Informed Consent: understands Reason for contiued inpatient stay Substantial Risk for: harm to self
[2021-01-06] MEDS: Nicotine Polacrilex 2 MG GUM 4 MG BUCCAL ×2 (10:38→18:36)
--- NOTE | 2021-01-06 15:18 | MHC.CLN ---
FOLLOW UP VISITED WITH PATIENT ON UNIT. REPORTS THAT IS EATING WELL AND EATS ALL THREE MEALS. REPORTED THAT PRIOR TO THIS ADMISSION, HAD BEEN EATING POORLY, USUALLY JUST ONE MEAL/DAY. WEIGHT LOSS IN THE PAST 2 YEARS OF ABOUT 20# BUT NOT ABLE TO PROVIDE TIMELINE. NO NEW NUTRITION INTERVENTIONS.
[2021-01-06 20:16] VITALS: BP 143/89; PULSE 88; RESP 18; TEMP 36.4; O2SAT 93
[2021-01-06 21:01] VITALS: BP 143/89; PULSE 88
[2021-01-06] MEDS: Prazosin HCL 1 MG CAPSULE 2 MG PO (21:01)
[2021-01-06 21:02] VITALS: BP 143/89; PULSE 88
[2021-01-06] MEDS: QUEtiapine Fumarate 100 MG TABLET 300 MG PO (21:02)
[2021-01-06] MEDS: QUEtiapine Fumarate 100 MG TABLET PO (21:03)
[2021-01-07 06:00] VITALS: BP 128/90; PULSE 79; RESP 18; TEMP 36.7; O2SAT 97
[2021-01-07] MEDS: Propranolol HCL 10 MG TABLET PO ×2 (09:00→21:49)
[2021-01-07] MEDS: Gabapentin 600 MG TABLET 1200 MG PO ×3 (09:00→21:50)
[2021-01-07] MEDS: Dextroamphetamine Sulfate 5 MG TABLET 20 MG PO (09:00)
[2021-01-07] MEDS: DULoxetine HCl 60 MG CAPSULE.DR PO (09:00)
[2021-01-07] MEDS: Buprenorphine/Naloxone 8/2 mg FILM 1 FILM BUCCAL (09:01)
[2021-01-07] MEDS: QUEtiapine Fumarate 50 MG TABLET PO ×2 (09:04→12:55)
--- NOTE | 2021-01-07 09:14 | P.PNPSI_ITS ---
Subjective Subjective Date of Service: 01/10/21 Reason For Visit: Si Subjective Notes: Conditional Voluntary Interim History: Pt continues to endorse depressed mood, anhedonia. He reports passive suicidal ideation. He reports continues to hear voices of his and father- derogatory voices telling him others are better off without him. He continues with themes of feeling manipulated by , not seeing how he can rebuild his life post divorce, feeling lonely, no having support from friends or family. 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 GI: No c/o Nausea, Vomiting, diarrhea, constipation or heartburn Yes all other systems are reviewed and are negative Constitutional: Reports no additional constitutional complaints, Denies body ache(s), Denies chills, Denies fever(s), Denies headache(s) and Denies weakness Eyes: Reports no additional eye complaints and Denies change in vision Reports system reviewed and no additional complaints, except as documented, Denies dizziness, Denies headache(s), Denies nasal congestion, Denies nasal discharge and Denies neck pain Cardiovascular: Reports no additional cardiovascular complaints, Denies chest pain, Denies leg edema and Denies dyspnea Respiratory: Reports no additional respiratory complaints, Denies cough and Denies dyspnea Gastrointestinal: Reports no additional gastrointestinal complaints, Denies abdominal pain, Denies diarrhea, Denies nausea and Denies vomiting Genitourinary: Denies urinary incontinence Musculoskeletal: Reports no additional musculoskeletal complaints, Denies back pain, Denies arthralgias, Denies joint swelling, Denies neck pain, Denies numbness and Denies tingling Skin/Breast: Reports system reviewed and no additional complaints, except as docu and Denies rash Reports system reviewed and no additional complaints, except as documented, Denies Abnormal speech present, Denies dizziness, Denies headache(s), Denies numbness, Denies tingling and Denies weakness Psychiatric: Reports anxiety, Reports depression, Denies visual hallucinations, Denies hallucinations, Denies tactile hallucinations, Denies homicidal ideation and Reports suicidal ideation Mental Status Exam Mental Status Exam Narrative: Appearance: casually groomed, fair hygiene, NAD Behavior: cooperative Speech: clear, normal rate/rhythm/volume, spontaneous TP: linear TC: hopeless, hearing derogatory voices of father and Mood: depressed Affect: constricted SI: passive, no plan or intent HI: none AH: hearing voices of father and (new for him) VH: none Delusions: none Insight/judgment: fair x 2. Memory/cog: alert, oriented x 3. grossly intact to conversational testing. Diagnostics Vital Signs (24Hr): Vital Signs - 24 hr 01/09/21 20:40 01/09/21 20:44 01/10/21 08:10 Temperature 98.2 F 97.6 F Pulse Rate 98 93 Respiratory Rate 16 Blood Pressure 125/83 135/81 Pulse Oximetry 95 96 01/10/21 08:12 Temperature Pulse Rate 93 Respiratory Rate Blood Pressure 135/81 Pulse Oximetry Body Mass Index 28.4 Labs Results: 01/02/21 11:51 01/02/21 11:51 Medications Medications Current Medications Generic Name Dose Route Start Last Admin Trade Name Freq PRN Reason Stop Dose Admin Acetaminophen 650 mg 01/02/21 23:10 01/04/21 21:19 Acetaminophen 325 Mg Tablet PO 650 mg Q6H PRN Administration Headache/Pain Mild Scale (1-3) Al Hydroxide/Mg Hydroxide 30 ml 01/02/21 23:10 Magnesium Hydrox/Alum Hydrox 30 Ml Oral.Susp PO Q6H PRN Heartburn/Nausea Amphetamine/Dextroamphetamine 20 mg 01/09/21 09:00 01/10/21 08:12 Amphetamine Mixed Salts 20 Mg Tablet PO 20 mg DAILY SHAHRZAD Administration Buprenorphine/Naloxone 1 film 01/03/21 09:00 01/10/21 08:12 Buprenorphine/Naloxone 8/2 Mg Film BUCCAL 1 film DAILY SHAHRZAD Administration Duloxetine HCl 90 mg 01/09/21 09:00 01/09/21 09:06 Duloxetine Hcl 30 Mg Capsule. PO 90 mg DAILY SHAHRZAD Administration Gabapentin 1,200 mg 01/02/21 15:00 01/10/21 08:12 Gabapentin 600 Mg Tablet PO 1,200 mg TID SHAHRZAD Administration Hydroxyzine HCl 50 mg 01/02/21 13:38 01/09/21 20:39 Hydroxyzine Hcl 50 Mg Tablet PO 50 mg QID PRN Administration Anxiety Magnesium Hydroxide 30 ml 01/02/21 23:10 Milk Of Magnesia 30 Ml Oral.Susp PO DAILY PRN Constipation Nicotine 21 mg 01/03/21 09:00 01/10/21 08:12 Nicotine 21 Mg Patch.Td24 TRANSDERMA 21 mg DAILY SHAHRZAD Administration Nicotine Polacrilex 4 mg 01/02/21 13:38 01/09/21 20:40 Nicotine Polacrilex 2 Mg Gum BUCCAL 4 mg Q2H PRN Administration Nicotine Cravings Olanzapine 5 mg 01/07/21 19:00 01/10/21 08:12 Olanzapine 5 Mg Tablet PO 5 mg DAILY SHAHRZAD Administration Prazosin HCl 2 mg 01/05/21 21:00 01/09/21 20:40 Prazosin Hcl 1 Mg Capsule PO 2 mg BEDTIME SHAHRZAD Administration Protocol Propranolol HCl 10 mg 01/02/21 21:00 01/10/21 08:12 Propranolol Hcl 10 Mg Tablet PO 10 mg BID SHAHRZAD Administration Protocol Quetiapine Fumarate 300 mg 01/03/21 21:00 01/09/21 20:39 Quetiapine Fumarate 100 Mg Tablet PO 300 mg BEDTIME SHAHRZAD Administration Quetiapine Fumarate 100 mg 01/05/21 14:12 01/09/21 17:14 Quetiapine Fumarate 100 Mg Tablet PO 100 mg Q4H PRN Administration auditory hallucinations Trazodone HCl 50 mg 01/02/21 23:10 Trazodone Hcl 50 Mg Tablet PO BEDTIME PRN Insomnia Allergies Allergies Allergy/AdvReac Type Severity Reaction Status Date / Time No Known Allergies Allergy Verified 12/18/20 15:20 Assessment & Plan Assessment & Plan (1) Major depressive disorder with psychotic features: Status: Acute Code(s): F32.3 - Major depressive disorder, single episode, severe with psychotic features Assessment and Plan: 1. continue cymbalta 2. continue seroquel- will adjust dose to target AH 3. agrees to d/c adderall as it may worsened AH. 4. aftercare planning Assessment and Plan: Brandon is a 40 y.o. male who self presented to [facility] and carries dx of ADHD, BEE, and MDD with psychotic features. Presents with depressed mood, tearfulness, increased anxiety, hyposomnia, perceptual disturbances in the form of AH, suicidal ideation, urges for self harm, urges to relapse on heroin, and poor appetite. He reports remote trial on Prozac, unable to remember but says he thinks he didn?t like it. Also reports adjunct treatment with Wellbutrin, also says he is unable to say if this helped, does not think he took it long enough. Says he has been on sertraline for many years, recently increased to 200 mg at [facility]. Plan: 1. Continue Cymbalta 60 mg QD to target sx of depression, anxiety, and may help with back pain. 2. Continue seroquel to 300 mg QHS to target sx of AH, mood stability, and poor sleep. seroquel 100 mg Q4H PRN CAH started 01/05 per pt request for more aggressive mgmt of AH. 3. D/C adderall 20 mg QD (on XR outpatient but given IR due to hospital formulary)- as it may worsened AH 4. Continue gabapentin 1200 mg TID for anxiety, pain, mood stability 5. Continue propranolol 10 mg BID for anxiety, HAs, HTN 6. Continue suboxone 8/2 mg for MAT 7. start prazosin for nightmares and insomnia in PTSD at 1 mg QHS as of 01/04, increased to 2 mg QHS as of 01/05. 8. Monitor response to medications. 9. Monitor for safety in the milieu. Discharge on stabilization. Patient seen. Chart reviewed. Discussed with team. Greater than 50% of the session was spent on counseling and/or coordination of care Reason for contiued inpatient stay Substantial Risk for: harm to self
[2021-01-07] MEDS: Nicotine Polacrilex 2 MG GUM 4 MG BUCCAL ×2 (14:04→18:39)
[2021-01-07] MEDS: hydrOXYzine HCL 50 MG TABLET PO (15:20)
[2021-01-07] MEDS: QUEtiapine Fumarate 100 MG TABLET PO (15:20)
[2021-01-07] MEDS: OLANZapine 5 MG TABLET PO (18:38)
[2021-01-07 21:49] VITALS: BP 118/81; PULSE 89
[2021-01-07] MEDS: Prazosin HCL 1 MG CAPSULE 2 MG PO (21:49)
[2021-01-07] MEDS: QUEtiapine Fumarate 100 MG TABLET 300 MG PO (21:50)
[2021-01-07 21:54] VITALS: BP 118/81; PULSE 89; TEMP 35.4; O2SAT 95
--- NOTE | 2021-01-08 09:29 | HO.PSYCHPN ---
Subjective Subjective Date of Service: 01/10/21 Reason For Visit: Si Interim History: Pt upset about not having adderall, which we had discussed to stop as AH were not significantly better. Pt then refused all morning medications becuase he was upset adderral had been d/eda, which pt was aware of. He continues to endorse depressed mood, passive suicidal ideation. He denies any plan or intent to hurt himself. He feels hopeless about his future and not sure how to build his life post divorce. he is worried about his finances. He was mostly in his room. He later agreed to take his medications. 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 GI: No c/o Nausea, Vomiting, diarrhea, constipation or heartburn Yes all other systems are reviewed and are negative Constitutional: Reports no additional constitutional complaints, Denies body ache(s), Denies chills, Denies fever(s), Denies headache(s) and Denies weakness Eyes: Reports no additional eye complaints and Denies change in vision Reports system reviewed and no additional complaints, except as documented, Denies dizziness, Denies headache(s), Denies nasal congestion, Denies nasal discharge and Denies neck pain Cardiovascular: Reports no additional cardiovascular complaints, Denies chest pain, Denies leg edema and Denies dyspnea Respiratory: Reports no additional respiratory complaints, Denies cough and Denies dyspnea Gastrointestinal: Reports no additional gastrointestinal complaints, Denies abdominal pain, Denies diarrhea, Denies nausea and Denies vomiting Genitourinary: Denies urinary incontinence Musculoskeletal: Reports no additional musculoskeletal complaints, Denies back pain, Denies arthralgias, Denies joint swelling, Denies neck pain, Denies numbness and Denies tingling Skin/Breast: Reports system reviewed and no additional complaints, except as docu and Denies rash Reports system reviewed and no additional complaints, except as documented, Denies Abnormal speech present, Denies dizziness, Denies headache(s), Denies numbness, Denies tingling and Denies weakness Psychiatric: Reports anxiety, Reports depression, Denies visual hallucinations, Denies hallucinations, Denies tactile hallucinations, Denies homicidal ideation and Reports suicidal ideation Mental Status Exam Mental Status Exam Narrative: Appearance: casually groomed, fair hygiene, NAD Behavior: cooperative Speech: clear, normal rate/rhythm/volume, spontaneous TP: linear TC: hopeless, hearing derogatory voices of father and Mood: depressed Affect: constricted SI: passive, no plan or intent HI: none AH: hearing voices of father and (new for him) VH: none Delusions: none Insight/judgment: fair x 2. Memory/cog: alert, oriented x 3. grossly intact to conversational testing. Diagnostics Vital Signs (24Hr): Vital Signs - 24 hr 01/09/21 20:40 01/09/21 20:44 01/10/21 08:10 Temperature 98.2 F 97.6 F Pulse Rate 98 93 Respiratory Rate 16 Blood Pressure 125/83 135/81 Pulse Oximetry 95 96 01/10/21 08:12 Temperature Pulse Rate 93 Respiratory Rate Blood Pressure 135/81 Pulse Oximetry Body Mass Index 28.4 Labs Results: 01/02/21 11:51 01/02/21 11:51 Medications Medications Current Medications Generic Name Dose Route Start Last Admin Trade Name Freq PRN Reason Stop Dose Admin Acetaminophen 650 mg 01/02/21 23:10 01/04/21 21:19 Acetaminophen 325 Mg Tablet PO 650 mg Q6H PRN Administration Headache/Pain Mild Scale (1-3) Al Hydroxide/Mg Hydroxide 30 ml 01/02/21 23:10 Magnesium Hydrox/Alum Hydrox 30 Ml Oral.Susp PO Q6H PRN Heartburn/Nausea Amphetamine/Dextroamphetamine 20 mg 01/09/21 09:00 01/10/21 08:12 Amphetamine Mixed Salts 20 Mg Tablet PO 20 mg DAILY SHAHRZAD Administration Buprenorphine/Naloxone 1 film 01/03/21 09:00 01/10/21 08:12 Buprenorphine/Naloxone 8/2 Mg Film BUCCAL 1 film DAILY SHAHRZAD Administration Duloxetine HCl 90 mg 01/09/21 09:00 01/09/21 09:06 Duloxetine Hcl 30 Mg Capsule.Dr PO 90 mg DAILY SHAHRZAD Administration Gabapentin 1,200 mg 01/02/21 15:00 01/10/21 08:12 Gabapentin 600 Mg Tablet PO 1,200 mg TID SHAHRZAD Administration Hydroxyzine HCl 50 mg 01/02/21 13:38 01/09/21 20:39 Hydroxyzine Hcl 50 Mg Tablet PO 50 mg QID PRN Administration Anxiety Magnesium Hydroxide 30 ml 01/02/21 23:10 Milk Of Magnesia 30 Ml Oral.Susp PO DAILY PRN Constipation Nicotine 21 mg 01/03/21 09:00 01/10/21 08:12 Nicotine 21 Mg Patch.Td24 TRANSDERMA 21 mg DAILY SHAHRZAD Administration Nicotine Polacrilex 4 mg 01/02/21 13:38 01/09/21 20:40 Nicotine Polacrilex 2 Mg Gum BUCCAL 4 mg Q2H PRN Administration Nicotine Cravings Olanzapine 5 mg 01/07/21 19:00 01/10/21 08:12 Olanzapine 5 Mg Tablet PO 5 mg DAILY SHAHRZAD Administration Prazosin HCl 2 mg 01/05/21 21:00 01/09/21 20:40 Prazosin Hcl 1 Mg Capsule PO 2 mg BEDTIME SHAHRZAD Administration Protocol Propranolol HCl 10 mg 01/02/21 21:00 01/10/21 08:12 Propranolol Hcl 10 Mg Tablet PO 10 mg BID SHAHRZAD Administration Protocol Quetiapine Fumarate 300 mg 01/03/21 21:00 01/09/21 20:39 Quetiapine Fumarate 100 Mg Tablet PO 300 mg BEDTIME SHAHRZAD Administration Quetiapine Fumarate 100 mg 01/05/21 14:12 01/09/21 17:14 Quetiapine Fumarate 100 Mg Tablet PO 100 mg Q4H PRN Administration auditory hallucinations Trazodone HCl 50 mg 01/02/21 23:10 Trazodone Hcl 50 Mg Tablet PO BEDTIME PRN Insomnia Allergies Allergies Allergy/AdvReac Type Severity Reaction Status Date / Time No Known Allergies Allergy Verified 12/18/20 15:20 Assessment & Plan Assessment & Plan (1) Major depressive disorder with psychotic features: Status: Acute Code(s): F32.3 - Major depressive disorder, single episode, severe with psychotic features Assessment and Plan: 1. continue cymbalta 2. continue seroquel- will adjust dose to target AH 3. agrees to d/c adderall as it may worsened AH. 4. aftercare planning Assessment and Plan: Brandon is a 40 y.o. male who self presented to [facility] and carries dx of ADHD, BEE, and MDD with psychotic features. Presents with depressed mood, tearfulness, increased anxiety, hyposomnia, perceptual disturbances in the form of AH, suicidal ideation, urges for self harm, urges to relapse on heroin, and poor appetite. He reports remote trial on Prozac, unable to remember but says he thinks he didn?t like it. Also reports adjunct treatment with Wellbutrin, also says he is unable to say if this helped, does not think he took it long enough. Says he has been on sertraline for many years, recently increased to 200 mg at [facility]. Plan: 1. Continue Cymbalta 60 mg QD to target sx of depression, anxiety, and may help with back pain. 2. Continue seroquel to 300 mg QHS to target sx of AH, mood stability, and poor sleep. seroquel 100 mg Q4H PRN CAH started 01/05 per pt request for more aggressive mgmt of AH. 3. D/C adderall 20 mg QD (on XR outpatient but given IR due to hospital formulary)- as it may worsened AH 4. Continue gabapentin 1200 mg TID for anxiety, pain, mood stability 5. Continue propranolol 10 mg BID for anxiety, HAs, HTN 6. Continue suboxone 8/2 mg for MAT 7. start prazosin for nightmares and insomnia in PTSD at 1 mg QHS as of 01/04, increased to 2 mg QHS as of 01/05. 8. Monitor response to medications. 9. Monitor for safety in the milieu. Discharge on stabilization. Patient seen. Chart reviewed. Discussed with team. Greater than 50% of the session was spent on counseling and/or coordination of care Reason for contiued inpatient stay Substantial Risk for: harm to self
[2021-01-08 11:24] VITALS: BP 123/84; PULSE 82
[2021-01-08] MEDS: Propranolol HCL 10 MG TABLET PO ×2 (11:24→20:44)
[2021-01-08] MEDS: Buprenorphine/Naloxone 8/2 mg FILM 1 FILM BUCCAL (11:24)
[2021-01-08] MEDS: Gabapentin 600 MG TABLET 1200 MG PO ×3 (11:24→20:44)
[2021-01-08] MEDS: DULoxetine HCl 60 MG CAPSULE.DR PO (11:24)
[2021-01-08] MEDS: OLANZapine 5 MG TABLET PO (17:25)
[2021-01-08] MEDS: Nicotine Polacrilex 2 MG GUM 4 MG BUCCAL ×2 (17:25→20:45)
[2021-01-08] MEDS: hydrOXYzine HCL 50 MG TABLET PO (17:26)
[2021-01-08 20:43] VITALS: BP 144/92; PULSE 110
[2021-01-08] MEDS: Prazosin HCL 1 MG CAPSULE 2 MG PO (20:43)
[2021-01-08 20:44] VITALS: BP 144/92; PULSE 110
[2021-01-08] MEDS: QUEtiapine Fumarate 100 MG TABLET 300 MG PO (20:45)
[2021-01-08 20:51] VITALS: BP 144/92; PULSE 110; TEMP 36.7; O2SAT 97
[2021-01-09] MEDS: QUEtiapine Fumarate 100 MG TABLET PO ×2 (04:10→17:14)
[2021-01-09 09:04] VITALS: BP 122/79; PULSE 85; RESP 16; TEMP 36.9; O2SAT 98
[2021-01-09] MEDS: Buprenorphine/Naloxone 8/2 mg FILM 1 FILM BUCCAL (09:05)
[2021-01-09] MEDS: Nicotine 21 MG PATCH.TD24 TRANSDERMA (09:06)
[2021-01-09] MEDS: DULoxetine HCl 30 MG CAPSULE.DR 90 MG PO (09:06)
[2021-01-09] MEDS: OLANZapine 5 MG TABLET PO (09:06)
[2021-01-09 09:07] VITALS: BP 122/79; PULSE 85
[2021-01-09] MEDS: Gabapentin 600 MG TABLET 1200 MG PO ×3 (09:07→20:40)
[2021-01-09] MEDS: Propranolol HCL 10 MG TABLET PO ×2 (09:07→20:40)
[2021-01-09] MEDS: Amphetamine Mixed Salts 20 MG TABLET PO (09:07)
--- NOTE | 2021-01-09 09:36 | HO.PSYCHPN ---
Subjective Subjective Date of Service: 01/10/21 Reason For Visit: Si Subjective Notes: Conditional Voluntary Interim History: Pt reports slight improvement in mood, in that he feels slightly more hopeful. He reports less AH. He continues to report passive suicidal ideation. He reports fair sleep as roommate was snoring loud. He has been more visible in the unit. No Behvioral concerns. Medication Compliance: Yes Side effects from medications: No Attending Groups: Yes Review of Systems Review of Systems CVS: No c/o chest pain, palpitations, no SOB [employer] GRADE [employer]: No c/o dizziness, headache GI: No c/o Nausea, Vomiting, diarrhea, constipation or heartburn Yes all other systems are reviewed and are negative Constitutional: Reports no additional constitutional complaints, Denies body ache(s), Denies chills, Denies fever(s), Denies headache(s) and Denies weakness Eyes: Reports no additional eye complaints and Denies change in vision Reports system reviewed and no additional complaints, except as documented, Denies dizziness, Denies headache(s), Denies nasal congestion, Denies nasal discharge and Denies neck pain Cardiovascular: Reports no additional cardiovascular complaints, Denies chest pain, Denies leg edema and Denies dyspnea Respiratory: Reports no additional respiratory complaints, Denies cough and Denies dyspnea Gastrointestinal: Reports no additional gastrointestinal complaints, Denies abdominal pain, Denies diarrhea, Denies nausea and Denies vomiting Genitourinary: Denies urinary incontinence Musculoskeletal: Reports no additional musculoskeletal complaints, Denies back pain, Denies arthralgias, Denies joint swelling, Denies neck pain, Denies numbness and Denies tingling Skin/Breast: Reports system reviewed and no additional complaints, except as docu and Denies rash Reports system reviewed and no additional complaints, except as documented, Denies Abnormal speech present, Denies dizziness, Denies headache(s), Denies numbness, Denies tingling and Denies weakness Psychiatric: Reports anxiety, Reports depression, Denies visual hallucinations, Denies hallucinations, Denies tactile hallucinations, Denies homicidal ideation and Reports suicidal ideation Mental Status Exam Mental Status Exam Narrative: Appearance: casually groomed, fair hygiene, NAD Behavior: cooperative Speech: clear, normal rate/rhythm/volume, spontaneous TP: linear TC: hopeless, hearing derogatory voices of father and Mood: depressed Affect: constricted SI: passive, no plan or intent HI: none AH: hearing voices of father and (new for him) VH: none Delusions: none Insight/judgment: fair x 2. Memory/cog: alert, oriented x 3. grossly intact to conversational testing. Diagnostics Vital Signs (24Hr): Vital Signs - 24 hr 01/09/21 20:40 01/09/21 20:44 01/10/21 08:10 Temperature 98.2 F 97.6 F Pulse Rate 98 93 Respiratory Rate 16 Blood Pressure 125/83 135/81 Pulse Oximetry 95 96 01/10/21 08:12 Temperature Pulse Rate 93 Respiratory Rate Blood Pressure 135/81 Pulse Oximetry Body Mass Index 28.4 Labs Results: 01/02/21 11:51 01/02/21 11:51 Medications Medications Current Medications Generic Name Dose Route Start Last Admin Trade Name Freq PRN Reason Stop Dose Admin Acetaminophen 650 mg 01/02/21 23:10 01/04/21 21:19 Acetaminophen 325 Mg Tablet PO 650 mg Q6H PRN Administration Headache/Pain Mild Scale (1-3) Al Hydroxide/Mg Hydroxide 30 ml 01/02/21 23:10 Magnesium Hydrox/Alum Hydrox 30 Ml Oral.Susp PO Q6H PRN Heartburn/Nausea Amphetamine/Dextroamphetamine 20 mg 01/09/21 09:00 01/10/21 08:12 Amphetamine Mixed Salts 20 Mg Tablet PO 20 mg DAILY SHAHRZAD Administration Buprenorphine/Naloxone 1 film 01/03/21 09:00 01/10/21 08:12 Buprenorphine/Naloxone 8/2 Mg Film BUCCAL 1 film DAILY SHAHRZAD Administration Duloxetine HCl 90 mg 01/09/21 09:00 01/09/21 09:06 Duloxetine Hcl 30 Mg Capsule.Dr PO 90 mg DAILY SHAHRZAD Administration Gabapentin 1,200 mg 01/02/21 15:00 01/10/21 08:12 Gabapentin 600 Mg Tablet PO 1,200 mg TID SHAHRZAD Administration Hydroxyzine HCl 50 mg 01/02/21 13:38 01/09/21 20:39 Hydroxyzine Hcl 50 Mg Tablet PO 50 mg QID PRN Administration Anxiety Magnesium Hydroxide 30 ml 01/02/21 23:10 Milk Of Magnesia 30 Ml Oral.Susp PO DAILY PRN Constipation Nicotine 21 mg 01/03/21 09:00 01/10/21 08:12 Nicotine 21 Mg Patch.Td24 TRANSDERMA 21 mg DAILY SHAHRZAD Administration Nicotine Polacrilex 4 mg 01/02/21 13:38 01/09/21 20:40 Nicotine Polacrilex 2 Mg Gum BUCCAL 4 mg Q2H PRN Administration Nicotine Cravings Olanzapine 5 mg 01/07/21 19:00 01/10/21 08:12 Olanzapine 5 Mg Tablet PO 5 mg DAILY SHAHRZAD Administration Prazosin HCl 2 mg 01/05/21 21:00 01/09/21 20:40 Prazosin Hcl 1 Mg Capsule PO 2 mg BEDTIME SHAHRZAD Administration Protocol Propranolol HCl 10 mg 01/02/21 21:00 01/10/21 08:12 Propranolol Hcl 10 Mg Tablet PO 10 mg BID SHAHRZAD Administration Protocol Quetiapine Fumarate 300 mg 01/03/21 21:00 01/09/21 20:39 Quetiapine Fumarate 100 Mg Tablet PO 300 mg BEDTIME SHAHRZAD Administration Quetiapine Fumarate 100 mg 01/05/21 14:12 01/09/21 17:14 Quetiapine Fumarate 100 Mg Tablet PO 100 mg Q4H PRN Administration auditory hallucinations Trazodone HCl 50 mg 01/02/21 23:10 Trazodone Hcl 50 Mg Tablet PO BEDTIME PRN Insomnia Allergies Allergies Allergy/AdvReac Type Severity Reaction Status Date / Time No Known Allergies Allergy Verified 12/18/20 15:20 Assessment & Plan Assessment & Plan (1) Major depressive disorder with psychotic features: Status: Acute Code(s): F32.3 - Major depressive disorder, single episode, severe with psychotic features Assessment and Plan: 1. continue cymbalta 2. continue seroquel- will adjust dose to target AH 3. agrees to d/c adderall as it may worsened AH. 4. aftercare planning Assessment and Plan: Brandon is a 40 y.o. male who self presented to [facility] [place] [facility] and carries dx of ADHD, BEE, and MDD with psychotic features. Presents with depressed mood, tearfulness, increased anxiety, hyposomnia, perceptual disturbances in the form of AH, suicidal ideation, urges for self harm, urges to relapse on heroin, and poor appetite. He reports remote trial on Prozac, unable to remember but says he thinks he didn?t like it. Also reports adjunct treatment with Wellbutrin, also says he is unable to say if this helped, does not think he took it long enough. Says he has been on sertraline for many years, recently increased to 200 mg at [facility]. Plan: 1. Continue Cymbalta 60 mg QD to target sx of depression, anxiety, and may help with back pain. 2. Continue seroquel to 300 mg QHS to target sx of AH, mood stability, and poor sleep. seroquel 100 mg Q4H PRN CAH started 01/05 per pt request for more aggressive mgmt of AH. 3. D/C adderall 20 mg QD (on XR outpatient but given IR due to hospital formulary)- as it may worsened AH 4. Continue gabapentin 1200 mg TID for anxiety, pain, mood stability 5. Continue propranolol 10 mg BID for anxiety, HAs, HTN 6. Continue suboxone 8/2 mg for MAT 7. start prazosin for nightmares and insomnia in PTSD at 1 mg QHS as of 01/04, increased to 2 mg QHS as of 01/05. 8. Monitor response to medications. 9. Monitor for safety in the milieu. Discharge on stabilization. Patient seen. Chart reviewed. Discussed with team. Greater than 50% of the session was spent on counseling and/or coordination of care Reason for contiued inpatient stay Substantial Risk for: harm to self
[2021-01-09] MEDS: Nicotine Polacrilex 2 MG GUM 4 MG BUCCAL ×3 (13:10→20:40)
[2021-01-09] MEDS: hydrOXYzine HCL 50 MG TABLET PO ×2 (17:14→20:39)
[2021-01-09] MEDS: QUEtiapine Fumarate 100 MG TABLET 300 MG PO (20:39)
[2021-01-09 20:40] VITALS: BP 125/83; PULSE 98
[2021-01-09] MEDS: Prazosin HCL 1 MG CAPSULE 2 MG PO (20:40)
[2021-01-09 20:44] VITALS: TEMP 36.8; O2SAT 95
[2021-01-10 08:10] VITALS: BP 135/81; PULSE 93; RESP 16; TEMP 36.4; O2SAT 96
--- NOTE | 2021-01-10 08:11 | HO.PSYCHPN ---
Subjective Subjective Date of Service: 01/11/21 Reason For Visit: Si Subjective Notes: Conditional Voluntary Interim History: Pt reports slight improvement in AH. He also reports feeling less depressed and slightly more hopeful about his future. He talks about themes of his as manipulative, having trauma (emotional) from that relationship but yet struggling to find his way and rebuild life post divorce, worry about custody of his children. He denies SI/HI. He has been visible in unit. Medication Compliance: Yes Side effects from medications: No Attending Groups: Yes Diagnostics Vital Signs (24Hr): Vital Signs - 24 hr 01/10/21 08:12 01/10/21 20:25 01/10/21 20:26 Temperature 97.6 F Pulse Rate 93 83 83 Respiratory Rate 18 Blood Pressure 135/81 135/88 135/88 Pulse Oximetry 97 Body Mass Index 28.4 Labs Results: 01/02/21 11:51 01/02/21 11:51 Medications Medications Current Medications Generic Name Dose Route Start Last Admin Trade Name Freq PRN Reason Stop Dose Admin Acetaminophen 650 mg 01/02/21 23:10 01/04/21 21:19 Acetaminophen 325 Mg Tablet PO 650 mg Q6H PRN Administration Headache/Pain Mild Scale (1-3) Al Hydroxide/Mg Hydroxide 30 ml 01/02/21 23:10 Magnesium Hydrox/Alum Hydrox 30 Ml Oral.Susp PO Q6H PRN Heartburn/Nausea Amphetamine/Dextroamphetamine 20 mg 01/09/21 09:00 01/10/21 08:12 Amphetamine Mixed Salts 20 Mg Tablet PO 20 mg DAILY SHAHRZAD Administration Buprenorphine/Naloxone 1 film 01/03/21 09:00 01/10/21 08:12 Buprenorphine/Naloxone 8/2 Mg Film BUCCAL 1 film DAILY SHAHRZAD Administration Duloxetine HCl 90 mg 01/09/21 09:00 01/10/21 09:51 Duloxetine Hcl 30 Mg Capsule.Dr PO 90 mg DAILY SHAHRZAD Administration Gabapentin 1,200 mg 01/02/21 15:00 01/10/21 20:26 Gabapentin 600 Mg Tablet PO 1,200 mg TID SHAHRZAD Administration Hydroxyzine HCl 50 mg 01/02/21 13:38 01/10/21 20:26 Hydroxyzine Hcl 50 Mg Tablet PO 50 mg QID PRN Administration Anxiety Magnesium Hydroxide 30 ml 01/02/21 23:10 Milk Of Magnesia 30 Ml Oral.Susp PO DAILY PRN Constipation Nicotine 21 mg 01/03/21 09:00 01/10/21 08:12 Nicotine 21 Mg Patch.Td24 TRANSDERMA 21 mg DAILY SHAHRZAD Administration Nicotine Polacrilex 4 mg 01/02/21 13:38 01/10/21 20:26 Nicotine Polacrilex 2 Mg Gum BUCCAL 4 mg Q2H PRN Administration Nicotine Cravings Olanzapine 5 mg 01/11/21 09:00 Olanzapine 5 Mg Tablet PO DAILY SHAHRZAD Olanzapine 10 mg 01/11/21 21:00 Olanzapine 10 Mg Tablet PO BEDTIME SHAHRZAD Olanzapine 5 mg 01/10/21 21:19 Olanzapine 5 Mg Tablet PO Q4H PRN agitation/psychosis Prazosin HCl 2 mg 01/05/21 21:00 01/10/21 20:25 Prazosin Hcl 1 Mg Capsule PO 2 mg BEDTIME SHAHRZAD Administration Protocol Propranolol HCl 10 mg 01/02/21 21:00 01/10/21 20:26 Propranolol Hcl 10 Mg Tablet PO 10 mg BID SHAHRZAD Administration Protocol Quetiapine Fumarate 150 mg 01/11/21 21:00 Quetiapine Fumarate 50 Mg Tablet PO BEDTIME SHAHRZAD Trazodone HCl 50 mg 01/02/21 23:10 Trazodone Hcl 50 Mg Tablet PO BEDTIME PRN Insomnia Allergies Allergies Allergy/AdvReac Type Severity Reaction Status Date / Time No Known Allergies Allergy Verified 12/18/20 15:20 Assessment & Plan Assessment & Plan (1) Major depressive disorder with psychotic features: Status: Acute Code(s): F32.3 - Major depressive disorder, single episode, severe with psychotic features Assessment and Plan: 1. continue cymbalta 2. continue seroquel- will adjust dose to target AH 3. agrees to d/c adderall as it may worsened AH. 4. aftercare planning Assessment and Plan: Brandon is a 40 y.o. male who self presented to [facility] [place] [facility] and carries dx of ADHD, BEE, and MDD with psychotic features. Presents with depressed mood, tearfulness, increased anxiety, hyposomnia, perceptual disturbances in the form of AH, suicidal ideation, urges for self harm, urges to relapse on heroin, and poor appetite. He reports remote trial on Prozac, unable to remember but says he thinks he didn?t like it. Also reports adjunct treatment with Wellbutrin, also says he is unable to say if this helped, does not think he took it long enough. Says he has been on sertraline for many years, recently increased to 200 mg at [facility]. Plan: 1. Continue Cymbalta 60 mg QD to target sx of depression, anxiety, and may help with back pain. 2. Continue seroquel to 300 mg QHS to target sx of AH, mood stability, and poor sleep. seroquel 100 mg Q4H PRN CAH started 01/05 per pt request for more aggressive mgmt of AH. 3. D/C adderall 20 mg QD (on XR outpatient but given IR due to hospital formulary)- as it may worsened AH 4. Continue gabapentin 1200 mg TID for anxiety, pain, mood stability 5. Continue propranolol 10 mg BID for anxiety, HAs, HTN 6. Continue suboxone 8/2 mg for MAT 7. start prazosin for nightmares and insomnia in PTSD at 1 mg QHS as of 01/04, increased to 2 mg QHS as of 01/05. 8. Monitor response to medications. 9. Monitor for safety in the milieu. Discharge on stabilization. Patient seen. Chart reviewed. Discussed with team. Greater than 50% of the session was spent on counseling and/or coordination of care Reason for contiued inpatient stay Substantial Risk for: harm to self
[2021-01-10 08:12] VITALS: BP 135/81; PULSE 93
[2021-01-10] MEDS: Buprenorphine/Naloxone 8/2 mg FILM 1 FILM BUCCAL (08:12)
[2021-01-10] MEDS: Nicotine 21 MG PATCH.TD24 TRANSDERMA (08:12)
[2021-01-10] MEDS: Amphetamine Mixed Salts 20 MG TABLET PO (08:12)
[2021-01-10] MEDS: Gabapentin 600 MG TABLET 1200 MG PO ×3 (08:12→20:26)
[2021-01-10] MEDS: OLANZapine 5 MG TABLET PO ×2 (08:12→17:20)
[2021-01-10] MEDS: Propranolol HCL 10 MG TABLET PO ×2 (08:12→20:26)
[2021-01-10] MEDS: DULoxetine HCl 30 MG CAPSULE.DR 90 MG PO (09:51)
[2021-01-10] MEDS: Nicotine Polacrilex 2 MG GUM 4 MG BUCCAL ×3 (09:53→20:26)
[2021-01-10] MEDS: hydrOXYzine HCL 50 MG TABLET PO ×2 (13:41→20:26)
[2021-01-10] MEDS: QUEtiapine Fumarate 100 MG TABLET PO ×2 (13:41→20:26)
[2021-01-10 20:25] VITALS: BP 135/88; PULSE 83; RESP 18; TEMP 36.4; O2SAT 97
[2021-01-10] MEDS: Prazosin HCL 1 MG CAPSULE 2 MG PO (20:25)
[2021-01-10] MEDS: QUEtiapine Fumarate 100 MG TABLET 300 MG PO (20:25)
[2021-01-10 20:26] VITALS: BP 135/88; PULSE 83
[2021-01-11 06:00] VITALS: BP 137/70; PULSE 95; RESP 18; TEMP 36.8; O2SAT 97
[2021-01-11] MEDS: Nicotine 21 MG PATCH.TD24 TRANSDERMA (08:14)
[2021-01-11] MEDS: Gabapentin 600 MG TABLET 1200 MG PO ×3 (08:15→20:20)
[2021-01-11] MEDS: Buprenorphine/Naloxone 8/2 mg FILM 1 FILM BUCCAL (08:15)
[2021-01-11] MEDS: Nicotine Polacrilex 2 MG GUM 4 MG BUCCAL ×2 (08:15→20:21)
[2021-01-11] MEDS: OLANZapine 5 MG TABLET PO ×2 (08:15→11:51)
[2021-01-11] MEDS: Amphetamine Mixed Salts 20 MG TABLET PO (08:15)
[2021-01-11] MEDS: DULoxetine HCl 30 MG CAPSULE.DR 90 MG PO (08:16)
[2021-01-11] MEDS: Propranolol HCL 10 MG TABLET PO ×2 (08:16→20:20)
--- NOTE | 2021-01-11 11:04 | HO.PSYCHPN ---
Subjective Subjective Date of Service: 01/11/21 Reason For Visit: Si Interim History: The patient reported that the medications ahe helping but he admitted sporadic AH mostly at hs. He is social and visible in the unit, he slept well last night. We discussed options and he requested an increase on his antipsychotics at hs Review of Systems Acute medical concerns: No Medical Review of Systems: unchanged Mental Status Exam Mental Status Exam Patient Appearance: Well Grooomed (on hospitla gowns) Patient Orientation: Person and Situation Level of Consciousness: Awake Patient Behavior: Cooperative Mood Description: Appropriate Affect Description: Calm Patient Cognition Impaired: No Ability to Follow Directions: Good Speech Pattern: Clear Memory Description: Intact Hallucinations: Auditory Delusions: Not Present Thought Process: Linear Thought Content: positive for Circumstantial Judgement: Fair Diagnostics Vital Signs (24Hr): Vital Signs - 24 hr 01/10/21 20:25 01/10/21 20:26 01/11/21 06:00 Temperature 97.6 F 98.3 F Pulse Rate 83 83 95 Respiratory Rate 18 18 Blood Pressure 135/88 135/88 137/70 Pulse Oximetry 97 97 Body Mass Index 28.4 Labs Results: 01/02/21 11:51 01/02/21 11:51 Medications Medications Current Medications Generic Name Dose Route Start Last Admin Trade Name Freq PRN Reason Stop Dose Admin Acetaminophen 650 mg 01/02/21 23:10 01/04/21 21:19 Acetaminophen 325 Mg Tablet PO 650 mg Q6H PRN Administration Headache/Pain Mild Scale (1-3) Al Hydroxide/Mg Hydroxide 30 ml 01/02/21 23:10 Magnesium Hydrox/Alum Hydrox 30 Ml Oral.Susp PO Q6H PRN Heartburn/Nausea Amphetamine/Dextroamphetamine 20 mg 01/09/21 09:00 01/11/21 08:15 Amphetamine Mixed Salts 20 Mg Tablet PO 20 mg DAILY SHAHRZAD Administration Buprenorphine/Naloxone 1 film 01/03/21 09:00 01/11/21 08:15 Buprenorphine/Naloxone 8/2 Mg Film BUCCAL 1 film DAILY SHAHRZAD Administration Duloxetine HCl 90 mg 01/09/21 09:00 01/11/21 08:16 Duloxetine Hcl 30 Mg Capsule.Dr PO 90 mg DAILY SHAHRZAD Administration Gabapentin 1,200 mg 01/02/21 15:00 01/11/21 08:15 Gabapentin 600 Mg Tablet PO 1,200 mg TID SHAHRZAD Administration Hydroxyzine HCl 50 mg 01/02/21 13:38 01/10/21 20:26 Hydroxyzine Hcl 50 Mg Tablet PO 50 mg QID PRN Administration Anxiety Magnesium Hydroxide 30 ml 01/02/21 23:10 Milk Of Magnesia 30 Ml Oral.Susp PO DAILY PRN Constipation Nicotine 21 mg 01/03/21 09:00 01/11/21 08:14 Nicotine 21 Mg Patch.Td24 TRANSDERMA 21 mg DAILY SHAHRZAD Administration Nicotine Polacrilex 4 mg 01/02/21 13:38 01/11/21 08:15 Nicotine Polacrilex 2 Mg Gum BUCCAL 4 mg Q2H PRN Administration Nicotine Cravings Olanzapine 5 mg 01/11/21 09:00 01/11/21 08:15 Olanzapine 5 Mg Tablet PO 5 mg DAILY SHAHRZAD Administration Olanzapine 10 mg 01/11/21 21:00 Olanzapine 10 Mg Tablet PO BEDTIME SHAHRZAD Olanzapine 5 mg 01/10/21 21:19 Olanzapine 5 Mg Tablet PO Q4H PRN agitation/psychosis Prazosin HCl 2 mg 01/05/21 21:00 01/10/21 20:25 Prazosin Hcl 1 Mg Capsule PO 2 mg BEDTIME SHAHRZAD Administration Protocol Propranolol HCl 10 mg 01/02/21 21:00 01/11/21 08:16 Propranolol Hcl 10 Mg Tablet PO 10 mg BID SHAHRZAD Administration Protocol Quetiapine Fumarate 150 mg 01/11/21 21:00 Quetiapine Fumarate 50 Mg Tablet PO BEDTIME SHAHRZAD Trazodone HCl 50 mg 01/02/21 23:10 Trazodone Hcl 50 Mg Tablet PO BEDTIME PRN Insomnia Allergies Allergies Allergy/AdvReac Type Severity Reaction Status Date / Time No Known Allergies Allergy Verified 12/18/20 15:20 Assessment & Plan Assessment & Plan (1) Major depressive disorder with psychotic features: Status: Acute Code(s): F32.3 - Major depressive disorder, single episode, severe with psychotic features Assessment and Plan: 1. continue cymbalta 2. continue seroquel- will adjust dose to target AH 3. agrees to d/c adderall as it may worsened AH. 4. aftercare planning Assessment and Plan: Brandon is a 40 y.o. male who self presented to [facility] [place] [facility] and carries dx of ADHD, BEE, and MDD with psychotic features. Presents with depressed mood, tearfulness, increased anxiety, hyposomnia, perceptual disturbances in the form of AH, suicidal ideation, urges for self harm, urges to relapse on heroin, and poor appetite. He reports remote trial on Prozac, unable to remember but says he thinks he didn?t like it. Also reports adjunct treatment with Wellbutrin, also says he is unable to say if this helped, does not think he took it long enough. Says he has been on sertraline for many years, recently increased to 200 mg at [facility]. Plan: 1. Continue Cymbalta 60 mg QD to target sx of depression, anxiety, and may help with back pain. 2. Continue seroquel to 300 mg QHS to target sx of AH, mood stability, and poor sleep. seroquel 100 mg Q4H PRN CAH started 01/05 per pt request for more aggressive mgmt of AH. 3. D/C adderall 20 mg QD (on XR outpatient but given IR due to hospital formulary)- as it may worsened AH 4. Continue gabapentin 1200 mg TID for anxiety, pain, mood stability 5. Continue propranolol 10 mg BID for anxiety, HAs, HTN 6. Continue suboxone 8/2 mg for MAT 7. start prazosin for nightmares and insomnia in PTSD at 1 mg QHS as of 01/04, increased to 2 mg QHS as of 01/05. 8. Monitor response to medications. 9. Monitor for safety in the milieu. Discharge on stabilization. Patient seen. Chart reviewed. Discussed with team. On 01/11 we increased Zyprexa up to 15 mg po qhs, rest the same Greater than 50% of the session was spent on counseling and/or coordination of care Reason for contiued inpatient stay Substantial Risk for: inability to function, rapid decompensation and med/psych decompensation
[2021-01-11] MEDS: hydrOXYzine HCL 50 MG TABLET PO ×2 (11:51→20:20)
[2021-01-11 20:01] VITALS: BP 142/90; PULSE 99; RESP 18; TEMP 37; O2SAT 93
[2021-01-11] MEDS: QUEtiapine Fumarate 50 MG TABLET 150 MG PO (20:19)
[2021-01-11 20:20] VITALS: BP 142/90; PULSE 99
[2021-01-11] MEDS: OLANZapine 7.5 MG TABLET 15 MG PO (20:20)
[2021-01-11 20:21] VITALS: BP 142/90; PULSE 99
[2021-01-11] MEDS: Prazosin HCL 1 MG CAPSULE 2 MG PO (20:21)
[2021-01-12 08:05] VITALS: BP 135/77; PULSE 96; RESP 18; TEMP 36.7; O2SAT 96
[2021-01-12] MEDS: DULoxetine HCl 30 MG CAPSULE.DR 90 MG PO (08:40)
[2021-01-12] MEDS: Gabapentin 600 MG TABLET 1200 MG PO ×3 (08:41→20:13)
[2021-01-12] MEDS: Amphetamine Mixed Salts 20 MG TABLET PO (08:41)
[2021-01-12] MEDS: Propranolol HCL 10 MG TABLET PO ×2 (08:42→20:14)
[2021-01-12] MEDS: OLANZapine 5 MG TABLET PO ×2 (08:42→15:02)
[2021-01-12] MEDS: Buprenorphine/Naloxone 8/2 mg FILM 1 FILM BUCCAL (08:43)
[2021-01-12] MEDS: Nicotine 21 MG PATCH.TD24 TRANSDERMA (08:43)
[2021-01-12] MEDS: Nicotine Polacrilex 2 MG GUM 4 MG BUCCAL ×2 (08:47→15:01)
--- NOTE | 2021-01-12 10:38 | HO.PSYCHPN ---
Subjective Subjective Date of Service: 01/12/21 Reason For Visit: Si Interim History: Nursing staff reported that the patient was having less AH at night after the increase of Zyprexa. On interview, he stated that he liked the extra Zyprexa, no new symptoms Review of Systems Acute medical concerns: No Medical Review of Systems: unchanged Mental Status Exam Mental Status Exam Patient Appearance: Well Grooomed Patient Orientation: Person, Place, Time and Situation Level of Consciousness: Awake Patient Behavior: Cooperative Mood Description: Calm and Appropriate Affect Description: Constricted Patient Cognition Impaired: No Ability to Follow Directions: Good Speech Pattern: Clear Memory Description: Intact Hallucinations: Auditory Delusions: Not Present Thought Process: Goal Oriented Thought Content: positive for Circumstantial Judgement: Fair Diagnostics Vital Signs (24Hr): Vital Signs - 24 hr 01/11/21 20:01 01/11/21 20:20 01/11/21 20:21 Temperature 98.6 F Pulse Rate 99 99 99 Respiratory Rate 18 Blood Pressure 142/90 H 142/90 H 142/90 H Pulse Oximetry 93 01/12/21 08:05 Temperature 98.0 F Pulse Rate 96 Respiratory Rate 18 Blood Pressure 135/77 Pulse Oximetry 96 Body Mass Index 28.4 Labs Results: 01/02/21 11:51 01/02/21 11:51 Medications Medications Current Medications Generic Name Dose Route Start Last Admin Trade Name Gabeq PRN Reason Stop Dose Admin Acetaminophen 650 mg 01/02/21 23:10 01/04/21 21:19 Acetaminophen 325 Mg Tablet PO 650 mg Q6H PRN Administration Headache/Pain Mild Scale (1-3) Al Hydroxide/Mg Hydroxide 30 ml 01/02/21 23:10 Magnesium Hydrox/Alum Hydrox 30 Ml Oral.Susp PO Q6H PRN Heartburn/Nausea Amphetamine/Dextroamphetamine 20 mg 01/09/21 09:00 01/12/21 08:41 Amphetamine Mixed Salts 20 Mg Tablet PO 20 mg DAILY SHAHRZAD Administration Buprenorphine/Naloxone 1 film 01/03/21 09:00 01/12/21 08:43 Buprenorphine/Naloxone 8/2 Mg Film BUCCAL 1 film DAILY SHAHRZAD Administration Duloxetine HCl 90 mg 01/09/21 09:00 01/12/21 08:40 Duloxetine Hcl 30 Mg Capsule.Dr PO 90 mg DAILY SHAHRZAD Administration Gabapentin 1,200 mg 01/02/21 15:00 01/12/21 08:41 Gabapentin 600 Mg Tablet PO 1,200 mg TID SHAHRZAD Administration Hydroxyzine HCl 50 mg 01/02/21 13:38 01/11/21 20:20 Hydroxyzine Hcl 50 Mg Tablet PO 50 mg QID PRN Administration Anxiety Magnesium Hydroxide 30 ml 01/02/21 23:10 Milk Of Magnesia 30 Ml Oral.Susp PO DAILY PRN Constipation Nicotine 21 mg 01/03/21 09:00 01/12/21 08:43 Nicotine 21 Mg Patch.Td24 TRANSDERMA 21 mg DAILY SHAHRZAD Administration Nicotine Polacrilex 4 mg 01/02/21 13:38 01/12/21 08:47 Nicotine Polacrilex 2 Mg Gum BUCCAL 4 mg Q2H PRN Administration Nicotine Cravings Olanzapine 5 mg 01/11/21 09:00 01/12/21 08:42 Olanzapine 5 Mg Tablet PO 5 mg DAILY SHAHRZAD Administration Olanzapine 5 mg 01/10/21 21:19 01/11/21 11:51 Olanzapine 5 Mg Tablet PO 5 mg Q4H PRN Administration agitation/psychosis Olanzapine 15 mg 01/11/21 21:00 01/11/21 20:20 Olanzapine 7.5 Mg Tablet PO 15 mg BEDTIME SHAHRZAD Administration Prazosin HCl 2 mg 01/05/21 21:00 01/11/21 20:21 Prazosin Hcl 1 Mg Capsule PO 2 mg BEDTIME SHAHRZAD Administration Protocol Propranolol HCl 10 mg 01/02/21 21:00 01/12/21 08:42 Propranolol Hcl 10 Mg Tablet PO 10 mg BID SHAHRZAD Administration Protocol Quetiapine Fumarate 150 mg 01/11/21 21:00 01/11/21 20:19 Quetiapine Fumarate 50 Mg Tablet PO 150 mg BEDTIME SHAHRZAD Administration Trazodone HCl 50 mg 01/02/21 23:10 Trazodone Hcl 50 Mg Tablet PO BEDTIME PRN Insomnia Allergies Allergies Allergy/AdvReac Type Severity Reaction Status Date / Time No Known Allergies Allergy Verified 12/18/20 15:20 Assessment & Plan Assessment & Plan (1) Major depressive disorder with psychotic features: Status: Acute Code(s): F32.3 - Major depressive disorder, single episode, severe with psychotic features Assessment and Plan: 1. continue cymbalta 2. continue seroquel- will adjust dose to target AH 3. agrees to d/c adderall as it may worsened AH. 4. aftercare planning Assessment and Plan: Brandon is a 40 y.o. male who self presented to [facility] and carries dx of ADHD, BEE, and MDD with psychotic features. Presents with depressed mood, tearfulness, increased anxiety, hyposomnia, perceptual disturbances in the form of AH, suicidal ideation, urges for self harm, urges to relapse on heroin, and poor appetite. He reports remote trial on Prozac, unable to remember but says he thinks he didn?t like it. Also reports adjunct treatment with Wellbutrin, also says he is unable to say if this helped, does not think he took it long enough. Says he has been on sertraline for many years, recently increased to 200 mg at [facility]. Plan: 1. Continue Cymbalta 60 mg QD to target sx of depression, anxiety, and may help with back pain. 2. Continue seroquel to 300 mg QHS to target sx of AH, mood stability, and poor sleep. seroquel 100 mg Q4H PRN CAH started 01/05 per pt request for more aggressive mgmt of AH. 3. D/C adderall 20 mg QD (on XR outpatient but given IR due to hospital formulary)- as it may worsened AH 4. Continue gabapentin 1200 mg TID for anxiety, pain, mood stability 5. Continue propranolol 10 mg BID for anxiety, HAs, HTN 6. Continue suboxone 8/2 mg for MAT 7. start prazosin for nightmares and insomnia in PTSD at 1 mg QHS as of 01/04, increased to 2 mg QHS as of 01/05. 8. Monitor response to medications. 9. Monitor for safety in the milieu. Discharge on stabilization. Patient seen. Chart reviewed. Discussed with team. On 01/11 we increased Zyprexa up to 15 mg po qhs, rest the same Greater than 50% of the session was spent on counseling and/or coordination of care Reason for contiued inpatient stay Substantial Risk for: inability to function, rapid decompensation and med/psych decompensation
[2021-01-12] MEDS: hydrOXYzine HCL 50 MG TABLET PO (15:00)
[2021-01-12 18:00] VITALS: BP 124/74; PULSE 67; RESP 16; TEMP 36.2; O2SAT 100
[2021-01-12 19:58] VITALS: BP 138/82; PULSE 85; RESP 18; TEMP 36.6; O2SAT 96
[2021-01-12] MEDS: QUEtiapine Fumarate 50 MG TABLET 150 MG PO (20:12)
[2021-01-12] MEDS: OLANZapine 7.5 MG TABLET 15 MG PO (20:13)
[2021-01-12 20:14] VITALS: BP 138/82; PULSE 85
[2021-01-12] MEDS: Prazosin HCL 1 MG CAPSULE 2 MG PO (20:14)
[2021-01-13 08:39] VITALS: BP 138/96; PULSE 93; RESP 16; TEMP 35.9; O2SAT 98
[2021-01-13] MEDS: Nicotine 21 MG PATCH.TD24 TRANSDERMA (08:39)
[2021-01-13 08:40] VITALS: BP 138/96; PULSE 93
[2021-01-13] MEDS: OLANZapine 5 MG TABLET PO ×3 (08:40→20:16)
[2021-01-13] MEDS: Buprenorphine/Naloxone 8/2 mg FILM 1 FILM BUCCAL (08:40)
[2021-01-13] MEDS: Propranolol HCL 10 MG TABLET PO ×2 (08:40→20:16)
[2021-01-13] MEDS: Gabapentin 600 MG TABLET 1200 MG PO ×3 (08:40→20:15)
[2021-01-13] MEDS: DULoxetine HCl 30 MG CAPSULE.DR 90 MG PO (08:40)
[2021-01-13] MEDS: Amphetamine Mixed Salts 20 MG TABLET PO (08:40)
[2021-01-13] MEDS: Nicotine Polacrilex 2 MG GUM 4 MG BUCCAL ×2 (13:56→20:16)
[2021-01-13] MEDS: hydrOXYzine HCL 50 MG TABLET PO ×2 (13:56→20:15)
--- NOTE | 2021-01-13 15:00 | HO.PSYCHPN ---
Subjective Subjective Date of Service: 01/13/21 Reason For Visit: Si Subjective Notes: Conditional Voluntary Interim History: Pt reports feeling less anxious. He reports voices are almost gone. He states at times briefly he may hear but mostly mumbles. He reports feeling more hopeful about his future. He reports less depressed. He states he plan to go to residential. He denies SI/HI. He has been visible in the unit. No behavioral concerns. Medication Compliance: Yes Side effects from medications: No Attending Groups: Yes Review of Systems Review of Systems CVS: No c/o chest pain, palpitations, no SOB [employer]ICE: No c/o dizziness, headache GI: No c/o Nausea, Vomiting, diarrhea, constipation or heartburn Yes all other systems are reviewed and are negative Constitutional: Reports no additional constitutional complaints, Denies body ache(s), Denies chills, Denies fever(s), Denies headache(s) and Denies weakness Eyes: Reports no additional eye complaints and Denies change in vision Reports system reviewed and no additional complaints, except as documented, Denies dizziness, Denies headache(s), Denies nasal congestion, Denies nasal discharge and Denies neck pain Cardiovascular: Reports no additional cardiovascular complaints, Denies chest pain, Denies leg edema and Denies dyspnea Respiratory: Reports no additional respiratory complaints, Denies cough and Denies dyspnea Gastrointestinal: Reports no additional gastrointestinal complaints, Denies abdominal pain, Denies diarrhea, Denies nausea and Denies vomiting Genitourinary: Denies urinary incontinence Musculoskeletal: Reports no additional musculoskeletal complaints, Denies back pain, Denies arthralgias, Denies joint swelling, Denies neck pain, Denies numbness and Denies tingling Skin/Breast: Reports system reviewed and no additional complaints, except as docu and Denies rash Reports system reviewed and no additional complaints, except as documented, Denies Abnormal speech present, Denies dizziness, Denies headache(s), Denies numbness, Denies tingling and Denies weakness Psychiatric: Reports anxiety, Reports depression, Denies visual hallucinations, Denies hallucinations, Denies tactile hallucinations, Denies homicidal ideation and Reports suicidal ideation Mental Status Exam Mental Status Exam Narrative: Appearance: casually groomed, fair hygiene, NAD Behavior: cooperative Speech: clear, normal rate/rhythm/volume, spontaneous TP: linear TC: hopeless, hearing derogatory voices of father and Mood: depressed Affect: constricted SI: passive, no plan or intent HI: none AH: hearing voices of father and (new for him) VH: none Delusions: none Insight/judgment: fair x 2. Memory/cog: alert, oriented x 3. grossly intact to conversational testing. Diagnostics Vital Signs (24Hr): Vital Signs - 24 hr 01/12/21 18:00 01/12/21 19:58 01/12/21 20:14 Temperature 97.2 F 98 F Pulse Rate 67 85 85 Respiratory Rate 16 18 Blood Pressure 124/74 138/82 138/82 Pulse Oximetry 100 96 01/13/21 08:39 01/13/21 08:40 Temperature 96.7 F L Pulse Rate 93 93 Respiratory Rate 16 Blood Pressure 138/96 H 138/96 H Pulse Oximetry 98 Body Mass Index 28.4 Labs Results: 01/02/21 11:51 01/02/21 11:51 Medications Medications Current Medications Generic Name Dose Route Start Last Admin Trade Name Freq PRN Reason Stop Dose Admin Acetaminophen 650 mg 01/02/21 23:10 01/04/21 21:19 Acetaminophen 325 Mg Tablet PO 650 mg Q6H PRN Administration Headache/Pain Mild Scale (1-3) Al Hydroxide/Mg Hydroxide 30 ml 01/02/21 23:10 Magnesium Hydrox/Alum Hydrox 30 Ml Oral.Susp PO Q6H PRN Heartburn/Nausea Amphetamine/Dextroamphetamine 20 mg 01/09/21 09:00 01/13/21 08:40 Amphetamine Mixed Salts 20 Mg Tablet PO 20 mg DAILY SHAHRZAD Administration Buprenorphine/Naloxone 1 film 01/03/21 09:00 01/13/21 08:40 Buprenorphine/Naloxone 8/2 Mg Film BUCCAL 1 film DAILY SHAHRZAD Administration Duloxetine HCl 90 mg 01/09/21 09:00 01/13/21 08:40 Duloxetine Hcl 30 Mg Capsule.Dr PO 90 mg DAILY SHAHRZAD Administration Gabapentin 1,200 mg 01/02/21 15:00 01/13/21 08:40 Gabapentin 600 Mg Tablet PO 1,200 mg TID SHAHRZAD Administration Hydroxyzine HCl 50 mg 01/02/21 13:38 01/13/21 13:56 Hydroxyzine Hcl 50 Mg Tablet PO 50 mg QID PRN Administration Anxiety Magnesium Hydroxide 30 ml 01/02/21 23:10 Milk Of Magnesia 30 Ml Oral.Susp PO DAILY PRN Constipation Nicotine 21 mg 01/03/21 09:00 01/13/21 08:39 Nicotine 21 Mg Patch.Td24 TRANSDERMA 21 mg DAILY SHAHRZAD Administration Nicotine Polacrilex 4 mg 01/02/21 13:38 01/13/21 13:56 Nicotine Polacrilex 2 Mg Gum BUCCAL 4 mg Q2H PRN Administration Nicotine Cravings Olanzapine 5 mg 01/11/21 09:00 01/13/21 08:40 Olanzapine 5 Mg Tablet PO 5 mg DAILY SHAHRZAD Administration Olanzapine 5 mg 01/10/21 21:19 01/13/21 13:56 Olanzapine 5 Mg Tablet PO 5 mg Q4H PRN Administration agitation/psychosis Olanzapine 15 mg 01/11/21 21:00 01/12/21 20:13 Olanzapine 7.5 Mg Tablet PO 15 mg BEDTIME SHAHRZAD Administration Prazosin HCl 2 mg 01/05/21 21:00 01/12/21 20:14 Prazosin Hcl 1 Mg Capsule PO 2 mg BEDTIME SHAHRZAD Administration Protocol Propranolol HCl 10 mg 01/02/21 21:00 01/13/21 08:40 Propranolol Hcl 10 Mg Tablet PO 10 mg BID SHAHRZAD Administration Protocol Quetiapine Fumarate 150 mg 01/11/21 21:00 01/12/21 20:12 Quetiapine Fumarate 50 Mg Tablet PO 150 mg BEDTIME SHAHRZAD Administration Trazodone HCl 50 mg 01/02/21 23:10 Trazodone Hcl 50 Mg Tablet PO BEDTIME PRN Insomnia Allergies Allergies Allergy/AdvReac Type Severity Reaction Status Date / Time No Known Allergies Allergy Verified 12/18/20 15:20 Assessment & Plan Assessment & Plan (1) Major depressive disorder with psychotic features: Status: Acute Code(s): F32.3 - Major depressive disorder, single episode, severe with psychotic features Assessment and Plan: Brandon is a 40 y.o. male who self presented to [facility] ED and carries dx of ADHD, BEE, and MDD with psychotic features. Presents with depressed mood, tearfulness, increased anxiety, hyposomnia, perceptual disturbances in the form of AH, suicidal ideation, urges for self harm, urges to relapse on heroin, and poor appetite. He reports remote trial on Prozac, unable to remember but says he thinks he didn?t like it. Also reports adjunct treatment with Wellbutrin, also says he is unable to say if this helped, does not think he took it long enough. Says he has been on sertraline for many years, recently increased to [address] [facility]. Plan: 1. Continue Cymbalta 90 mg QD to target sx of depression, anxiety, and may help with back pain. 2. Continue olanzapine 5 mg po daily and 15 mg po qhs. continue seroquel 150mg po qhs for sleep but pt understands added S/E profile with two antipsychotics. 3. continue adderall 20 mg QD (on XR outpatient but given IR due to hospital formulary) 4. Continue gabapentin 1200 mg TID for anxiety, pain, mood stability 5. Continue propranolol 10 mg BID for anxiety, HAs, HTN 6. Continue suboxone 8/2 mg for MAT 7. continue prazosin 2mg po qhs for nightmares and insomnia in PTSD at 1 mg QHS as of 01/04, increased to 2 mg QHS as of 01/05. 8. Monitor response to medications. 9. Monitor for safety in the milieu. Discharge on stabilization. Patient seen. Chart reviewed. Greater than 50% of the session was spent on counseling and/or coordination of care Reason for contiued inpatient stay Substantial Risk for: stable for discharge
[2021-01-13 20:16] VITALS: BP 152/99; PULSE 97
[2021-01-13] MEDS: Prazosin HCL 1 MG CAPSULE 2 MG PO (20:16)
[2021-01-13] MEDS: OLANZapine 7.5 MG TABLET 15 MG PO (20:16)
[2021-01-13] MEDS: QUEtiapine Fumarate 50 MG TABLET 150 MG PO (20:16)
[2021-01-13 20:19] VITALS: TEMP 37.1; O2SAT 96
[2021-01-14] MEDS: Nicotine 21 MG PATCH.TD24 TRANSDERMA (07:57)
[2021-01-14] MEDS: Buprenorphine/Naloxone 8/2 mg FILM 1 FILM BUCCAL (07:57)
[2021-01-14 07:58] VITALS: BP 131/78; PULSE 91
[2021-01-14] MEDS: Gabapentin 600 MG TABLET 1200 MG PO (07:58)
[2021-01-14] MEDS: Propranolol HCL 10 MG TABLET PO (07:58)
[2021-01-14] MEDS: DULoxetine HCl 30 MG CAPSULE.DR 90 MG PO (07:58)
[2021-01-14] MEDS: OLANZapine 5 MG TABLET PO (07:58)
[2021-01-14] MEDS: Amphetamine Mixed Salts 20 MG TABLET PO (07:59)
[2021-01-14 08:09] VITALS: BP 131/78; PULSE 91; RESP 16; TEMP 36.1; O2SAT 98
[2021-01-14] MEDS: Nicotine Polacrilex 2 MG GUM 4 MG BUCCAL (10:11)
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
== END 2021-01-14 14:15 | disposition home or self-care (01) | DRG 751 ==
LOC: HO.ED 13:40 → HO.PADLT16 22:18
PROVIDERS: Nurse Practitioner Family; Admitting Provider Registered Nurse; Emergency Provider Emergency Medicine; PCP Internal Medicine; Visit Provider Social Worker
DX: F32.3 Major depressive disorder, single episode, severe with psychotic features (principal); R45.851 Suicidal ideations; F90.9 Attention-deficit hyperactivity disorder, unspecified type; F17.210 Nicotine dependence, cigarettes, uncomplicated; F11.20 Opioid dependence, uncomplicated; Z71.6 Tobacco abuse counseling; Z79.899 Other long term (current) drug therapy
CPT/HCPCS: 36415; 80048; 80076; 80307; 82077; 85025; 87635; 93005; 99285

== ENCOUNTER 2021-04-04 13:41 | Inpatient (IN) | payer OTHER, MEDICAID, SELFPAY ==
[2021-04-04 14:19] VITALS: BP 148/92; PULSE 120; RESP 18; TEMP 37.1; O2SAT 95; BMI 30.5
[2021-04-04 14:27] VITALS: BP 121/82; PULSE 91; RESP 15; TEMP 36.6; O2SAT 94
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
[2021-04-04 15:11] LABS: MANUAL DIFF FLAG NO
[2021-04-04 15:13] LABS: Basophils Percent Auto 0.4 % (0-2); Eosinophils Absolute Auto 0.1 X10*3/uL (0.0-0.4); Eosinophils Percent Auto 0.7 % (0-4); Hematocrit 43.4 % (42.0-52.0); Hemoglobin 13.8 g/dl (14.0-18.0); Imm Gran Abs Auto 0.03 X10*3/uL (0.00-0.03); Imm Gran Pct Auto 0.3 % (0.0-0.4); Lymphocytes Percent Auto 19.4 % (20-40); Mean Corpuscular HGB Conc 31.8 g/dl (31.0-36.0); Mean Corpuscular Hemoglobin 25.9 pg (27.0-33.0); Mean Corpuscular Volume 81.4 fL (80.0-98.0); Mean Platelet Volume 8.8 fL (9.4-12.4); Monocytes Absolute Auto 0.7 X10*3/uL (0.1-1.2); Monocytes Percent Auto 6.7 % (2-11); Neutrophils Absolute Auto 7.4 x10*3/uL (2.0-8.3); Neutrophils Percent Auto 72.5 % (45-73); Platelet Count 294 X10*3/uL (160-400); Red Blood Count 5.33 X10*6/uL (4.60-5.80); Red Cell Distribution Width 15.9 % (11.0-16.0); White Blood Count 10.2 X10*3/uL (4.8-10.8)
[2021-04-04 15:31] LABS: Ethanol < 10 mg/dL
[2021-04-04 15:34] LABS: Alanine Aminotransferase 22 U/L (0-40); Albumin Level 4.3 g/dL (3.5-5.0); Alkaline Phosphatase 143 U/L (39-117); Anion Gap 15 (12-20); Aspartate Amino Transferase 21 U/L (5-37); Bilirubin Total 0.4 mg/dL (0.0-1.0); Blood Urea Nitrogen 14 mg/dL (9-16); Calcium 9.4 mg/dL (8.4-10.2); Carbon Dioxide 28 mmol/L (22-29); Chloride 104 mmol/L (96-108); Creatinine Clr Calc Pharmacy 117.7; Estimated Glomerular Filt Rate > 60; Glucose Random 118 mg/dL (60-115); Potassium 4.5 mmol/L (3.3-5.1); Sodium 142 mmol/L (135-145); Total Protein 7.8 g/dL (6.5-8.0)
[2021-04-04 15:47] LABS: COVID-19 Test Negative (Negative); IDNOW Serial# 9DD0AD1C
[2021-04-04 20:35] VITALS: BP 121/81; PULSE 91
[2021-04-04] MEDS: Gabapentin 600 MG TABLET PO (20:35)
[2021-04-04] MEDS: QUEtiapine Fumarate 100 MG TABLET PO (20:35)
[2021-04-04] MEDS: Prazosin HCL 1 MG CAPSULE 2 MG PO (20:35)
--- NOTE | 2021-04-05 05:37 | PC.NURSE ---
Patient slept through the night, no distress observed/reported, medication compliant, behavior appropriate, appetite good, pending urine sample, disposition is section 12 inpatient bed search per N, VSS, will continue to monitor.
[2021-04-05 07:35] LABS: Appearance Urine HAZY; Color Urine YELLOW; Glucose Urine UA NEG (NEG); Leukocyte Esterase Urine NEG (NEG); Nitrite Urine NEG (NEG); Specific Gravity - Urine >= 1.030 (1.005-1.025); Urine Blood NEG (NEG); Urine Ketones NEG (NEG); Urine Protein NEG (NEG-TRACE)
[2021-04-05 07:48] LABS: Amphetamine Screen Urine Not Detected (Not Detect); Barbiturates, Urine Not Detected (Not Detect); Benzodiazepines Screen Urine Not Detected (Not Detect); Cannabinoid Screen Urine POSITIVE (Not Detect); Cocaine Screen Urine Not Detected (Not Detect); Fentanyl, urine Not Detected (Not Detect); Opiate Screen Urine Not Detected (Not Detect); Phencyclidine Screen Urine Not Detected (Not Detect)
--- NOTE | 2021-04-05 07:54 | PC.NURSE ---
patient remained asleep at beginning of shift respirations are even and unlabored, patient appears in no distress
[2021-04-05 08:54] VITALS: BP 154/84; PULSE 68; RESP 16; TEMP 36.8; O2SAT 96
[2021-04-05] MEDS: DULoxetine HCl 30 MG CAPSULE.DR 90 MG PO (10:14)
[2021-04-05] MEDS: Gabapentin 600 MG TABLET PO ×3 (10:14→20:04)
[2021-04-05] MEDS: Buprenorphine/Naloxone 8/2 mg FILM 1 FILM BUCCAL (10:14)
[2021-04-05] MEDS: Nicotine Polacrilex 2 MG GUM BUCCAL ×3 (10:42→18:09)
[2021-04-05 20:04] VITALS: BP 146/95; PULSE 66
[2021-04-05] MEDS: QUEtiapine Fumarate 100 MG TABLET PO (20:04)
[2021-04-05] MEDS: Prazosin HCL 1 MG CAPSULE 2 MG PO (20:04)
[2021-04-05 20:10] VITALS: BP 146/95; PULSE 66; RESP 18; O2SAT 96
[2021-04-06 04:04] VITALS: BP 124/76; PULSE 72; TEMP 36.8; O2SAT 97
--- NOTE | 2021-04-06 05:51 | PC.NURSE ---
Patient slept through the night, no distress observed/reported, VSS, behavior pleasant and appropriate, medication compliant, disposition is section 12 inpatient bed search, will continue to monitor.
--- NOTE | 2021-04-06 06:57 | PC.NURSE ---
patient appears to remain asleep at present, respirations are even and unlabored, patient appears in no distress
[2021-04-06] MEDS: Nicotine Polacrilex 2 MG GUM BUCCAL ×3 (07:40→17:48)
[2021-04-06] MEDS: Buprenorphine/Naloxone 8/2 mg FILM 1 FILM BUCCAL (08:31)
[2021-04-06] MEDS: DULoxetine HCl 30 MG CAPSULE.DR 90 MG PO (08:31)
[2021-04-06] MEDS: Gabapentin 600 MG TABLET PO ×3 (08:31→20:51)
[2021-04-06] MEDS: Acetaminophen 325 MG TABLET 650 MG PO (08:58)
[2021-04-06 11:24] VITALS: BP 148/90; PULSE 68; RESP 16; TEMP 36.9; O2SAT 94
[2021-04-06 20:48] VITALS: BP 135/95; PULSE 74; RESP 16; O2SAT 95
[2021-04-06 20:51] VITALS: BP 135/95; PULSE 74
[2021-04-06] MEDS: QUEtiapine Fumarate 100 MG TABLET PO (20:51)
[2021-04-06] MEDS: Prazosin HCL 1 MG CAPSULE 2 MG PO (20:51)
[2021-04-07 04:51] VITALS: BP 133/90; PULSE 100; RESP 18; TEMP 36.8; O2SAT 98
[2021-04-07] MEDS: Lidocaine 4 % Patch ADH..PATCH 1 PATCH TRANSDERMA (05:02)
--- NOTE | 2021-04-07 05:05 | PC.NURSE ---
Patient slept through the night, just woke up and reproetd lower back pain 10/07 requested Lidocane patch, provider notified/ordered Lidocane patch/applied as ordered/pending effect, patient behavior calm, pleasant, and appropriate, medication compliant, disposition is section 12 inpatient bed search, contracted for the safety, will continue to monitor.
[2021-04-07] MEDS: Nicotine Polacrilex 2 MG GUM BUCCAL ×3 (07:18→13:39)
--- NOTE | 2021-04-07 07:38 | PC.NURSE ---
patient appeared to remain asleep at beginning of shift with even unlabored respirations, patient appears in no distress
[2021-04-07] MEDS: Acetaminophen 325 MG TABLET 650 MG PO (10:03)
[2021-04-07] MEDS: Buprenorphine/Naloxone 8/2 mg FILM 1 FILM BUCCAL (10:03)
[2021-04-07] MEDS: DULoxetine HCl 30 MG CAPSULE.DR 90 MG PO (10:03)
[2021-04-07] MEDS: Gabapentin 600 MG TABLET PO ×3 (10:03→20:46)
[2021-04-07 10:16] VITALS: BP 127/77; PULSE 74; RESP 16; TEMP 36.6; O2SAT 97
--- NOTE | 2021-04-07 15:40 | MHC.CARE ---
CARE Team spoke with patient regarding disposition, [place] [facility] [place] [facility] has exhausted the search for today, due to lack of available beds in the state. Inquired what patient's admission goal would be, he reported to restart his medication that were missed for several weeks (has taken since arrival to the ED on 04/04/21) and make certain he is stable. He endorsed having intermittent suicidal thoughts recently though denied plan or intention, sometimes I think it would be easier. Patient is future oriented, stated that he has a divorce mediation scheduled for Wednesday. Advised patient that there are other options for treatment such as PHP and [facility] which he can consider vs waiting in the ED if he is not in acute danger. [facility] did not complete an MSU today, unclear if they will come reassess. PHP has a lengthy waitlist at this time. Patient is open to speaking with a prescriber tonight about restarting medication and if there are any considerations, following that discharge could be considered.
--- NOTE | 2021-04-07 17:36 | PC.NURSE ---
PT WILL HAVE A MENTAL HEALTH CHECK AT SOMEPOINT THIS EVENING
[2021-04-07 20:45] VITALS: BP 138/94; PULSE 73
[2021-04-07] MEDS: Prazosin HCL 1 MG CAPSULE 2 MG PO (20:45)
[2021-04-07] MEDS: QUEtiapine Fumarate 100 MG TABLET PO (20:46)
[2021-04-08 04:21] VITALS: BP 122/76; PULSE 74; RESP 18; TEMP 36.8; O2SAT 97
--- NOTE | 2021-04-08 05:10 | PC.NURSE ---
Patient slept through the night, no distress observed/reported, behavior appropriate, medication compliant, VSS, appetite good, elimination intact, disposition is section 12 inpatient bed search, contracted for the safety, will continue to monitor.
[2021-04-08] MEDS: Gabapentin 600 MG TABLET PO ×3 (09:12→20:18)
[2021-04-08] MEDS: DULoxetine HCl 30 MG CAPSULE.DR 90 MG PO (09:12)
[2021-04-08] MEDS: Buprenorphine/Naloxone 8/2 mg FILM 1 FILM BUCCAL (09:12)
[2021-04-08] MEDS: Lidocaine 4 % Patch ADH..PATCH 1 PATCH TRANSDERMA (09:12)
[2021-04-08] MEDS: Acetaminophen 325 MG TABLET 650 MG PO ×2 (09:12→20:19)
--- NOTE | 2021-04-08 09:22 | PC.NURSE ---
Since this rn arrival at 7am pt has been awake, alert, ambulatory in department. Has patiently awaited PRN meds for lower back pain. Denies SI and is aware of plan for admission to [facility] today. Just now was diaphoretic, states he doesn't normally have diaphoresis like this. Ate breakfast. Staff to complete VS, POC and EKG. Provider Catherine SMALLS aware of diaphoresis.
--- NOTE | 2021-04-08 09:24 | ECG_ITS ---
Test Reason : medical clearance Blood Pressure : / mmHG Vent. Rate : 074 BPM Atrial Rate : 074 BPM P-R Int : 144 ms QRS Dur : 078 ms QT Int : 354 ms P-R-T Axes : 026 053 015 degrees QTc Int : 392 ms Normal sinus rhythm Normal ECG When compared with ECG of 02-JAN-2021 11:22, No significant change was found Referred By: Catherine Bay Electronically Signed By:RIK PAUL MD
[2021-04-08 09:43] LABS: Glucose, Whole Blood 103 mg/dL (60-115)
[2021-04-08 09:51] VITALS: BP 117/84; PULSE 92; RESP 17; TEMP 37.1; O2SAT 99
--- NOTE | 2021-04-08 09:53 | PC.NURSE ---
Pt is no longer diaphoretic. Kala from CARE in to speak with him about disposition. No longer planning for [facility].
--- NOTE | 2021-04-08 10:28 | PC.NURSE ---
[id number] staff here to speak with patient.
--- NOTE | 2021-04-08 11:53 | PC.NURSE ---
late entry for 1000: Kala from CARE team left room while patient was standing, yelling. Pt continued to yell even after her departure, screaming I don't meet criteria, huh? then I'll leave and kill me self. What? do you want me to bite my arm right here? WHen calmer patient statates that he hasn't received all of his medications while in the ED. 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 This RN called pharmacy and confirmed that the following were not continued while in the ED: Adderall XR20mg last filled 01/16/21 for 30days; Hydroxyzine 25-50mg TIB PRN last filled 04/02/21; propranolol 10mg BID last filled 12/11; zyprexa 5mg last filled jan 17 at this time 1200, patient is calm.
--- NOTE | 2021-04-08 14:43 | PC.NURSE ---
olena to olena butler on M5
[2021-04-08 16:14] VITALS: BP 152/94; PULSE 91; RESP 15; TEMP 37.3; O2SAT 94
[2021-04-08] MEDS: Nicotine Polacrilex 2 MG GUM BUCCAL ×2 (17:00→20:19)
--- NOTE | 2021-04-08 17:58 | PC.ADMIT ---
Pt is a 41 year old male who presents to M5 from [facility] ED at approx 1640 on a cv status. Pt is covid- Utox + for THC. Pt has outpt services. Per chart review, pt self-presented to [facility] ED endorsing passive suicidal ideation, noncompliances with medications as prescribed. Pt is stressed due to a tumultuous divorce from his . Pt has a hx of one suicide attempt via medication overdose and self-harming via burning self with cigarettes 15+ years ago. Pt has had three inpt psych admissions. Pt admited to having AH/depression/anxiety. Denied SI with no plan. Provider called for orders and notified of admission. Start treatment plan and monitor for safety.
[2021-04-08 20:18] VITALS: BP 133/79; PULSE 81
[2021-04-08] MEDS: QUEtiapine Fumarate 100 MG TABLET PO (20:18)
[2021-04-08] MEDS: hydrOXYzine HCL 25 MG TABLET PO (20:18)
[2021-04-08] MEDS: Prazosin HCL 1 MG CAPSULE 2 MG PO (20:18)
[2021-04-08] MEDS: traZODone HCL 50 MG TABLET PO (20:19)
[2021-04-09 06:00] VITALS: BP 130/76; PULSE 81; RESP 18; TEMP 36.7; O2SAT 95
[2021-04-09] MEDS: DULoxetine HCl 30 MG CAPSULE.DR 90 MG PO (08:25)
[2021-04-09] MEDS: Buprenorphine/Naloxone 8/2 mg FILM 1 FILM BUCCAL (08:25)
[2021-04-09] MEDS: Gabapentin 600 MG TABLET PO ×3 (08:25→19:48)
[2021-04-09 09:13] LABS: Cholesterol 253 mg/dL; HDL Cholesterol 37 mg/dL; LDL Cholesterol Calculated 178 mg/dl; Magnesium 2.2 mg/dL (1.6-2.6); Triglycerides 193 mg/dL
[2021-04-09 09:36] LABS: Free T4 (Free Thyroxine) 1.13 ng/dL (0.71-1.85); Thyroid Stimulating Hormone 1.56 uIU/mL (0.32-4.0)
[2021-04-09 09:53] LABS: Estimated Average Glucose 123 mg/dL; Hemoglobin A1c % 5.9 %
[2021-04-09 09:55] LABS: Folate 10.9 ng/mL (> or = 4.0); Vitamin B12 286 pg/mL (200-900)
[2021-04-09] MEDS: OLANZapine 5 MG TABLET PO (12:34)
[2021-04-09] MEDS: Nicotine Polacrilex 2 MG GUM BUCCAL ×2 (12:34→20:15)
[2021-04-09] MEDS: Dextroamphetamine/Amphetamine XR 10 MG CAP.ER.24H 20 MG PO (12:35)
[2021-04-09] MEDS: Multivitamin TABLET 1 TAB PO (12:35)
[2021-04-09 18:00] VITALS: BP 134/84; PULSE 95; RESP 16; TEMP 35.3; O2SAT 97
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
[2021-04-09 19:48] VITALS: BP 134/86; PULSE 104
[2021-04-09] MEDS: OLANZapine 10 MG TABLET PO (19:48)
[2021-04-09] MEDS: Prazosin HCL 1 MG CAPSULE 2 MG PO (19:48)
[2021-04-09 19:49] VITALS: BP 134/86; PULSE 104
[2021-04-09] MEDS: Propranolol HCL 10 MG TABLET PO (19:49)
[2021-04-09] MEDS: hydrOXYzine HCL 25 MG TABLET PO (20:16)
[2021-04-09] MEDS: QUEtiapine Fumarate 100 MG TABLET PO (20:16)
[2021-04-10 06:00] VITALS: BP 133/83; PULSE 69; RESP 16; TEMP 36.1; O2SAT 97
[2021-04-10 07:00] VITALS: BMI 31.8
[2021-04-10] MEDS: OLANZapine 5 MG TABLET PO (08:32)
[2021-04-10] MEDS: DULoxetine HCl 30 MG CAPSULE.DR 90 MG PO (08:32)
[2021-04-10 08:33] VITALS: BP 137/88; PULSE 72
[2021-04-10] MEDS: Dextroamphetamine/Amphetamine XR 10 MG CAP.ER.24H 20 MG PO (08:33)
[2021-04-10] MEDS: Multivitamin TABLET 1 TAB PO (08:33)
[2021-04-10] MEDS: Propranolol HCL 10 MG TABLET PO ×2 (08:33→20:31)
[2021-04-10] MEDS: Gabapentin 600 MG TABLET PO ×3 (08:33→20:31)
[2021-04-10] MEDS: Nicotine 21 MG PATCH.TD24 TRANSDERMA (08:34)
[2021-04-10] MEDS: Buprenorphine/Naloxone 8/2 mg FILM 1 FILM BUCCAL (08:34)
[2021-04-10] MEDS: Nicotine Polacrilex 2 MG GUM BUCCAL ×2 (09:57→20:31)
[2021-04-10] MEDS: Milk of Magnesia 30 ML ORAL.SUSP PO (09:58)
--- NOTE | 2021-04-10 17:26 | P.PNPSI_ITS ---
Subjective Subjective Date of Service: 04/10/21 Reason For Visit: Recurrent Major Depression, SI, Opiate/Cannabis us Subjective Notes: Conditional Voluntary Healthcare Proxy: No Guardianship: No Medical Problems Affecting Mental Status: No Interim History: Reports tolerating re-titration without adverse effect. Will continue titration today of Olanzapine. Lab review. Discharge planning-will discharge 04/11 if no SE from re-titration. Pt declines couples meeting-states he is in process of mediation with attorneys and would like to keep that process consistent. Anxiety/depressive sx still are present. Medication Compliance: Yes Side effects from medications: No Attending Groups: Intermittent Review of Systems Acute medical concerns: No Medical Review of Systems: unchanged Review of Systems Psychiatric: Reports anxiety and Reports depression Mental Status Exam Mental Status Exam Patient Appearance: Appropriate Patient Orientation: Person, Place, Time and Situation Level of Consciousness: Awake and Alert Patient Behavior: Appropriate, Talkative and Cooperative Mood Description: Depressed Affect Description: Flat Patient Cognition Impaired: No Ability to Follow Directions: Good Speech Pattern: Spontaneous Speech Memory Description: Intact Hallucinations: None Delusions: Not Present Thought Process: Distracted and Rumination Thought Content: positive for [place] and positive for Circumstantial Depressive Symptoms: Increased Anxiety, Insomnia, Diff. Making Decisions, Difficulty Sleeping, Changes in Appetite, Loss of Int. in Activity, Feelings of Worthlessness, Hopelessness, Unhappiness, Increased Fatigue, Thoughts of /Suicide (denies), Low Self Esteem, Loss of Energy and Difficulty Concentrating Judgement: Fair Diagnostics Vital Signs (24Hr): Vital Signs - 24 hr 04/09/21 18:00 04/09/21 19:48 04/09/21 19:49 Temperature 95.6 F L Pulse Rate 95 104 H 104 H Respiratory Rate 16 Blood Pressure 134/84 134/86 134/86 Pulse Oximetry 97 04/10/21 06:00 04/10/21 08:33 Temperature 97.0 F Pulse Rate 69 72 Respiratory Rate 16 Blood Pressure 133/83 137/88 Pulse Oximetry 97 Body Mass Index 31.8 Labs Results: 04/04/21 15:07 04/04/21 15:07 Labs: Laboratory Results - last 48 hr 04/09/21 04/09/21 04/09/21 08:20 08:20 08:20 Estimat Average Glucose 123 Hemoglobin A1c % 5.9 Magnesium 2.2 Triglycerides 193 Cholesterol 253 D LDL Cholesterol, Calc 178 HDL Cholesterol 37 Vitamin B12 286 Folate 10.9 TSH 1.56 Free T4 1.13 Medications Medications Current Medications Acetaminophen (Acetaminophen 325 Mg Tablet) 650 mg PO Q6H PRN PRN Reason: Headache/Pain Mild Scale (1-3) Last Admin: 04/08/21 20:19 Dose: 650 mg Documented by: Al Hydroxide/Mg Hydroxide (Magnesium Hydrox/Alum Hydrox 30 Ml Oral.Susp) 30 ml PO Q6H PRN PRN Reason: Heartburn/Nausea Amphetamine/Dextroamphetamine (Dextroamphetamine/Amphetamine Xr 10 Mg Cap.Er.24h) 20 mg PO DAILY [facility] Last Admin: 04/10/21 08:33 Dose: 20 mg Documented by: Buprenorphine/Naloxone (Buprenorphine/Naloxone 8/2 Mg Film) 1 film BUCCAL DAILY [facility] Last Admin: 04/10/21 08:34 Dose: 1 film Documented by: Duloxetine HCl (Duloxetine Hcl 30 Mg Capsule.Dr) 90 mg PO DAILY [facility] Last Admin: 04/10/21 08:32 Dose: 90 mg Documented by: Gabapentin (Gabapentin 600 Mg Tablet) 600 mg PO TID [facility] Last Admin: 04/10/21 14:23 Dose: 600 mg Documented by: Hydroxyzine HCl (Hydroxyzine Hcl 25 Mg Tablet) 25 mg PO TID PRN PRN Reason: Anxiety Last Admin: 04/09/21 20:16 Dose: 25 mg Documented by: Lidocaine (Lidocaine 4 % Patch Adh..Patch) 1 patch TRANSDERMA DAILY PRN; Protocol PRN Reason: back pain Stop: 04/12/21 08:59 Magnesium Hydroxide (Milk Of Magnesia 30 Ml Oral.Susp) 30 ml PO DAILY PRN PRN Reason: Constipation Last Admin: 04/10/21 09:58 Dose: 30 ml Documented by: Multivitamins/Vitamin C (Multivitamin Tablet) 1 tab PO DAILY [facility] Last Admin: 04/10/21 08:33 Dose: 1 tab Documented by: Nicotine (Nicotine 21 Mg Patch.Td24) 21 mg TRANSDERMA DAILY [facility] Last Admin: 04/10/21 08:34 Dose: 21 mg Documented by: Nicotine Polacrilex (Nicotine Polacrilex 2 Mg Gum) 2 mg BUCCAL Q2H PRN PRN Reason: Nicotine Cravings Last Admin: 04/10/21 09:57 Dose: 2 mg Documented by: Olanzapine (Olanzapine 5 Mg Tablet) 5 mg PO DAILY [facility] Last Admin: 04/10/21 08:32 Dose: 5 mg Documented by: Olanzapine (Olanzapine 10 Mg Tablet) 10 mg PO BEDTIME [facility] Last Admin: 04/09/21 19:48 Dose: 10 mg Documented by: Pharmacy Consult (Consult Rx Perform Med Rec) 1 each MISCELLANE ONCE PRN PRN Reason: Consult order Prazosin HCl (Prazosin Hcl 1 Mg Capsule) 2 mg PO BEDTIME [facility]; Protocol Last Admin: 04/09/21 19:48 Dose: 2 mg Documented by: Propranolol HCl (Propranolol Hcl 10 Mg Tablet) 10 mg PO BID [facility]; Protocol Last Admin: 04/10/21 08:33 Dose: 10 mg Documented by: Quetiapine Fumarate (Quetiapine Fumarate 100 Mg Tablet) 100 mg PO BEDTIME PRN PRN Reason: insomnia Last Admin: 04/09/21 20:16 Dose: 100 mg Documented by: Trazodone HCl (Trazodone Hcl 50 Mg Tablet) 50 mg PO BEDTIME PRN PRN Reason: Insomnia Last Admin: 04/08/21 20:19 Dose: 50 mg Documented by: Allergies Allergies Allergy/AdvReac Type Severity Reaction Status Date / Time No Known Allergies Allergy Verified 12/18/20 15:20 Assessment & Plan Assessment & Plan (1) Major depressive disorder with psychotic features: Status: Acute Code(s): F32.3 - Major depressive disorder, single episode, severe with psychotic features Assessment and Plan: 41 yo male, hx of recurrent major depression with psychotic features, presents with insomnia, poor appetite, inattention to ADL's and SI in context of not being able to refill medication regime which had assisted pt in maintaining stability since last admission. Pt has significant stressors-he is in process of divorce- still living in the home so they may co-parent children, ages 8 and 6. Plan: Re-establish previous regime Monitor response and for SE Collateral contacts Check diagnostics for any medical issues Assist in return to OP care. 04/10/21: Tolerating re-titration. Declines family/couples meeting. Titrate Olanzapine to 5 mg a.m. 15 mg hs. Change Seroquel to standing HS order Change hydroxyzine to 50 mg qid prn. Discharge tentative for 04/11/21. I spent 20 minutes with the patient and/or on the patient floor today, greater than?50% of which was spent counseling/coordinating care. Informed Consent: understands Reason for contiued inpatient stay Substantial Risk for: rapid decompensation
[2021-04-10 18:00] VITALS: BP 130/91; PULSE 78; RESP 16; TEMP 35.9; O2SAT 97
[2021-04-10 20:31] VITALS: BP 137/85; PULSE 95
[2021-04-10] MEDS: hydrOXYzine HCL 50 MG TABLET PO (20:31)
[2021-04-10] MEDS: OLANZapine 7.5 MG TABLET 15 MG PO (20:31)
[2021-04-10 20:32] VITALS: BP 137/85; PULSE 95
[2021-04-10] MEDS: Prazosin HCL 1 MG CAPSULE 2 MG PO (20:32)
[2021-04-10] MEDS: QUEtiapine Fumarate 100 MG TABLET PO (20:32)
[2021-04-11 08:59] VITALS: BP 129/71; PULSE 74
[2021-04-11] MEDS: Gabapentin 600 MG TABLET PO (08:59)
[2021-04-11] MEDS: Dextroamphetamine/Amphetamine XR 10 MG CAP.ER.24H 20 MG PO (08:59)
[2021-04-11] MEDS: DULoxetine HCl 30 MG CAPSULE.DR 90 MG PO (08:59)
[2021-04-11] MEDS: Propranolol HCL 10 MG TABLET PO (08:59)
[2021-04-11] MEDS: OLANZapine 5 MG TABLET PO (08:59)
[2021-04-11] MEDS: Buprenorphine/Naloxone 8/2 mg FILM 1 FILM BUCCAL (08:59)
[2021-04-11] MEDS: Multivitamin TABLET 1 TAB PO (09:12)
[2021-04-11] MEDS: Nicotine Polacrilex 2 MG GUM BUCCAL (09:12)
--- NOTE | 2021-04-11 10:18 | PM.PSYDC ---
DS: Providers Provider Date of Service: 04/11/21 Date of admission: 04/08/21 16:13 Date of discharge: 04/11/21 Primary care physician: Salvatore Valenzuela MD Admitting clinician: Shonna Ortiz Attending physician on admission: Brent Burt Attending physician on discharge: Brent Burt Discharging clinician: Shonna Ortiz DS: Diagnosis Discharge Diagnosis (1) Major depressive disorder with psychotic features: Status: Acute DS: Medications Discharge Medications Home Medications: Previous Rx's Medication Instructions Recorded buprenorphine 8 mg-naloxone 2 mg 1 film BUCCAL DAILY #3 ea 04/11/21 sublingual film (Suboxone) dextroamphetamine-amphetamine ER 20 mg PO DAILY #60 cap 04/11/21 10 mg 24hr capsule,extend release (Adderall XR) duloxetine 30 mg capsule,delayed 90 mg PO DAILY #90 cap 04/11/21 release gabapentin 600 mg tablet 600 mg PO TID #90 tab 04/11/21 hydroxyzine HCl 50 mg tablet 50 mg PO QID PRN #120 tab 04/11/21 multivitamin (Daily-Daria) 1 tab PO DAILY #30 tab 04/11/21 nicotine 21 mg/24 hr daily 21 mg TRANSDERMAL DAILY #30 ea 04/11/21 transdermal patch olanzapine 5 mg tablet 5 mg PO DAILY #30 tab 04/11/21 olanzapine 7.5 mg tablet 15 mg PO BEDTIME #30 tab 04/11/21 prazosin 2 mg capsule 2 mg PO BEDTIME #30 cap 04/11/21 propranolol 10 mg tablet 10 mg PO BID #60 tab 04/11/21 quetiapine 100 mg tablet 100 mg PO BEDTIME #30 tab 04/11/21 Mental Status Exam Mental Status Exam Patient Appearance: Appropriate Patient Orientation: Person, Place, Time and Situation Level of Consciousness: Awake and Alert Patient Behavior: Appropriate, Talkative and Cooperative Mood Description: Depressed Affect Description: Flat Patient Cognition Impaired: No Ability to Follow Directions: Good Speech Pattern: Spontaneous Speech Memory Description: Intact Hallucinations: None Delusions: Not Present Thought Process: Distracted and Rumination Thought Content: positive for Royal and positive for Circumstantial Depressive Symptoms: Increased Anxiety, Insomnia, Diff. Making Decisions, Difficulty Sleeping, Changes in Appetite, Loss of Int. in Activity, Feelings of Worthlessness, Hopelessness, Unhappiness, Increased Fatigue, Thoughts of /Suicide (denies), Low Self Esteem, Loss of Energy and Difficulty Concentrating Judgement: Fair Data Data Completed and Pending Completed studies during hospitalization [Text1]: 04/04/21 04/04/21 04/04/21 15:07 15:07 15:07 WBC 10.2 RBC 5.33 Hgb 13.8 L Hct 43.4 MCV 81.4 MCH 25.9 L MCHC 31.8 RDW 15.9 Plt Count 294 MPV 8.8 L Immature Gran % (Auto) 0.3 Neut % (Auto) 72.5 Lymph % (Auto) 19.4 L [place] % (Auto) 6.7 Eos % (Auto) 0.7 Baso % (Auto) 0.4 Lymph # (Auto) 2.0 [place] # (Auto) 0.7 Eos # (Auto) 0.1 Baso # (Auto) 0.0 Abs Immat Gran (auto) 0.03 Absolute Neuts (auto) 7.4 Absolute Nucleated RBC 0.000 Nucleated RBC % (auto) 0.0 Sodium 142 Potassium 4.5 Chloride 104 Carbon Dioxide 28 Anion Gap 15 BUN 14 Creatinine 1.00 Estim Creat Clear Calc 117.7 Estimated GFR > 60 POC Glucose Random Glucose 118 H Estimat Average Glucose Hemoglobin A1c % Calcium 9.4 Magnesium Total Bilirubin 0.4 AST 21 D ALT 22 Alkaline Phosphatase 143 H D Total Protein 7.8 Albumin 4.3 Triglycerides Cholesterol LDL Cholesterol, Calc HDL Cholesterol Vitamin B12 Folate TSH Free T4 Urine Color Urine Appearance Urine pH Ur Specific [place] Urine Protein Urine Glucose (UA) Urine Ketones Urine Blood Urine Nitrite Ur Leukocyte Esterase Urine Opiates Screen Urine Fentanyl Screen Ur Barbiturates Screen Ur Phencyclidine Scrn Ur Amphetamines Screen U Benzodiazepines Scrn Urine Cocaine Screen U Marijuana (THC) Screen Ethyl Alcohol COVID-19 ([place]) Negative COVID-19 Clin Com See Note 04/04/21 04/05/21 04/05/21 15:07 07:28 07:28 WBC RBC Hgb Hct MCV MCH MCHC RDW Plt Count MPV Immature Gran % (Auto) Neut % (Auto) Lymph % (Auto) [place] % (Auto) Eos % (Auto) Baso % (Auto) Lymph # (Auto) [place] # (Auto) Eos # (Auto) Baso # (Auto) Abs Immat Gran (auto) Absolute Neuts (auto) Absolute Nucleated RBC Nucleated RBC % (auto) Sodium Potassium Chloride Carbon Dioxide Anion Gap BUN Creatinine Estim Creat Clear Calc Estimated GFR POC Glucose Random Glucose Estimat Average Glucose Hemoglobin A1c % Calcium Magnesium Total Bilirubin AST ALT Alkaline Phosphatase Total Protein Albumin Triglycerides Cholesterol LDL Cholesterol, Calc HDL Cholesterol Vitamin B12 Folate TSH Free T4 Urine Color YELLOW Urine Appearance HAZY Urine pH 6.0 Ur Specific [place] >= 1.030 H Urine Protein NEG Urine Glucose (UA) NEG Urine Ketones NEG Urine Blood NEG Urine Nitrite NEG Ur Leukocyte Esterase NEG Urine Opiates Screen Not Detected Urine Fentanyl Screen Not Detected Ur Barbiturates Screen Not Detected Ur Phencyclidine Scrn Not Detected Ur Amphetamines Screen Not Detected U Benzodiazepines Scrn Not Detected Urine Cocaine Screen Not Detected U Marijuana (THC) Screen POSITIVE H Ethyl Alcohol < 10 COVID-19 ([place]) COVID-19 [place] [employer] 04/08/21 04/09/21 04/09/21 09:38 08:20 08:20 WBC RBC Hgb Hct MCV MCH MCHC RDW Plt Count MPV Immature Gran % (Auto) Neut % (Auto) Lymph % (Auto) [place] % (Auto) Eos % (Auto) Baso % (Auto) Lymph # (Auto) [place] # (Auto) Eos # (Auto) Baso # (Auto) Abs Immat Gran (auto) Absolute Neuts (auto) Absolute Nucleated RBC Nucleated RBC % (auto) Sodium Potassium Chloride Carbon Dioxide Anion Gap BUN Creatinine Estim Creat Clear Calc Estimated GFR POC Glucose 103 Random Glucose Estimat Average Glucose 123 Hemoglobin A1c % 5.9 Calcium Magnesium 2.2 Total Bilirubin AST ALT Alkaline Phosphatase Total Protein Albumin Triglycerides 193 Cholesterol 253 D LDL Cholesterol, Calc 178 HDL Cholesterol 37 Vitamin B12 Folate TSH 1.56 Free T4 1.13 Urine Color Urine Appearance Urine pH Ur Specific [place] Urine Protein Urine Glucose (UA) Urine Ketones Urine Blood Urine Nitrite Ur Leukocyte Esterase Urine Opiates Screen Urine Fentanyl Screen Ur Barbiturates Screen Ur Phencyclidine Scrn Ur Amphetamines Screen U Benzodiazepines Scrn Urine Cocaine Screen U Marijuana (THC) Screen Ethyl Alcohol COVID-19 ([place]) COVID-19 [place] [employer] 04/09/21 08:20 WBC RBC Hgb Hct MCV MCH MCHC RDW Plt Count MPV Immature Gran % (Auto) Neut % (Auto) Lymph % (Auto) [place] % (Auto) Eos % (Auto) Baso % (Auto) Lymph # (Auto) [place] # (Auto) Eos # (Auto) Baso # (Auto) Abs Immat Gran (auto) Absolute Neuts (auto) Absolute Nucleated RBC Nucleated RBC % (auto) Sodium Potassium Chloride Carbon Dioxide Anion Gap BUN Creatinine Estim Creat Clear Calc Estimated GFR POC Glucose Random Glucose Estimat Average Glucose Hemoglobin A1c % Calcium Magnesium Total Bilirubin AST ALT Alkaline Phosphatase Total Protein Albumin Triglycerides Cholesterol LDL Cholesterol, Calc HDL Cholesterol Vitamin B12 286 Folate 10.9 TSH Free T4 Urine Color Urine Appearance Urine pH Ur Specific [place] Urine Protein Urine Glucose (UA) Urine Ketones Urine Blood Urine Nitrite Ur Leukocyte Esterase Urine Opiates Screen Urine Fentanyl Screen Ur Barbiturates Screen Ur Phencyclidine Scrn Ur Amphetamines Screen U Benzodiazepines Scrn Urine Cocaine Screen U Marijuana (THC) Screen Ethyl Alcohol COVID-19 ([place]) COVID-19 Clin Com DS: Summary Hospital Course Hospital Course: Admission to adult psychiatry to address symptoms of recurrent major depression with psychosis and suicidal ideation, cannabis use disorder and opiate use disorder. 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 He reported that during his previous admission he found a regime that was helpful. As a result, during this admission this regime was re-established. Care plan, medicine regime and out pt plan of care prior to admission were reviewed. Education was provided regarding management of symptoms, medications and side effects. Nursing and school social worker worked extensively with patient on collateral contacts, plan of care, education regarding management of symptoms, medications and discharge planning. Pt reports a current difficult divorce is ongoing and he declined assistance with family work as he is in process of medations. He and live in the same home to effectively co-parent their children. Time spent discussing smoking cessation with patient: 3 to 10 minutes Status at Discharge Cognitive/behavioral status at discharge: non-psychotic, non-suicidal Functional status at discharge: independent ambulation Overall status at discharge: patient is progressing back to baseline Time Spent with Patient Time attestation: Total time spent providing and/or coordinating discharge services: 35 Time spent: Greater than 30 minutes Discharge Plan Discharge Patient Disposition: Home, Self-Care Discharge Diagnosis: Recurrent major depression with psychosis Opiate Use Disorder-currently on Suboxone Cannabis Use Disorder Referrals: [facility] [Other] - 04/14/21 1:30 pm (IN PERSON) [facility] [Other] (Walk in if needed) MARIFER BAIRES APRN [Other] - 04/18/21 12:20 pm (TELEHEALTH) Discharge Medications: New olanzapine 5 mg Tablet 5 mg PO DAILY Qty: 30 RF: 0 hydroxyzine HCl 50 mg Tablet 50 mg PO QID PRN (Reason: Anxiety) Qty: 120 RF: 0 olanzapine 7.5 mg Tablet 15 mg PO BEDTIME Qty: 30 RF: 0 propranolol 10 mg Tablet 10 mg PO BID Qty: 60 RF: 0 nicotine 21 mg/24 hr Patch 24 Hour 21 mg transdermal DAILY Qty: 30 RF: 0 dextroamphetamine-amphetamine [Adderall XR] 10 mg Capsule,Extended Release 24hr 20 mg PO DAILY Qty: 60 RF: 0 multivitamin [Daily-Daria] Tablet 1 tab PO DAILY Qty: 30 RF: 0 Continued quetiapine 100 mg tablet 100 mg PO BEDTIME Qty: 30 RF: 0 prazosin 2 mg capsule 2 mg PO BEDTIME Qty: 30 RF: 0 duloxetine 30 mg Capsule,Delayed Release(Dr/Ec) 90 mg PO DAILY Qty: 90 RF: 0 buprenorphine-naloxone [Suboxone] 8-2 mg Film 1 film BUCCAL DAILY Qty: 3 RF: 0 Changed gabapentin 600 mg tablet 600 mg PO TID Qty: 90 RF: 0 Discontinued hydroxyzine HCl 50 mg tablet 25 mg PO TID PRN (Reason: Anxiety) RF: 0 Discharge Orders: Discharge Order (Routine); Ordered 04/11/21 Ordered By: Shonna Ortiz Diet: advance to usual diet Activity on Discharge: As tolerated Stand Alone Forms: Patient Portal Discharge page, Community Support Care Plan Goals: Mood stabilization Sobriety Health Concerns: Recurrent major depression with psychosis Plan of Treatment: Attend scheduled appointments Take medications as directed Utilize crisis services if needed [phone] Call or return as needed Assessment: non-suicidal, non-psychotic Discharge Date/Time: 04/11/21 11:34
== END 2021-04-11 11:34 | disposition home or self-care (01) | DRG 751 ==
LOC: HO.ED 04-08 14:41 → HO.PM5 04-08 16:17
PROVIDERS: Admitting Provider Clinical Nurse Specialist Psychiatric/Mental Health, Adult; Emergency Provider Emergency Medicine; PCP Internal Medicine; Visit Provider Clinical Nurse Specialist Psychiatric/Mental Health, Adult
DX: F32.3 Major depressive disorder, single episode, severe with psychotic features (principal); R45.851 Suicidal ideations; F11.20 Opioid dependence, uncomplicated; F14.10 Cocaine abuse, uncomplicated; F17.210 Nicotine dependence, cigarettes, uncomplicated; Z71.6 Tobacco abuse counseling; Z20.822 Contact with and (suspected) exposure to COVID-19; Z79.899 Other long term (current) drug therapy
CPT/HCPCS: 36415; 80053; 80061; 80307; 81003; 82077; 82607; 82746; 82947; 83036; 83735; 84439; 84443; 85025; 87635; 93005; 99285

== ENCOUNTER 2021-08-14 08:01 | Emergency (ER) | payer OTHER, MEDICAID, SELFPAY ==
[2021-08-14 08:04] VITALS: BP 175/113; PULSE 108; RESP 19; TEMP 36.6; O2SAT 98; BMI 30.4
[2021-08-14 10:18] LABS: Amphetamine Screen Urine Not Detected (Not Detect); Barbiturates, Urine Not Detected (Not Detect); Benzodiazepines Screen Urine Not Detected (Not Detect); Cannabinoid Screen Urine POSITIVE (Not Detect); Cocaine Screen Urine Not Detected (Not Detect); Fentanyl, urine Not Detected (Not Detect); Opiate Screen Urine Not Detected (Not Detect); Phencyclidine Screen Urine Not Detected (Not Detect)
[2021-08-14 10:21] LABS: COVID-19 Test Negative (Negative)
--- NOTE | 2021-08-14 10:26 | ED_ITS ---
HPI - Psych General Chief Complaint: Psychiatric Symptoms Stated Complaint: crisis Time Seen by Provider: 08/14/21 11:31 Source: patient Mode of arrival: ambulatory Limitations: no limitations History of Present Illness HPI Narrative: 41-year-old male with history of depression presents to the ED for depression and suicidal thoughts. Patient states he has been off his meds for months due to issue with prior authorization. Patient denies any auditory/visual hallucinations. Patient wants to be evaluated. Related Data Home Medications Medication Instructions Recorded Confirmed nicotine 21 mg/24 hr daily 21 mg TRANSDERMAL DAILY PRN 08/14/21 08/14/21 transdermal patch olanzapine 15 mg tablet 1 tab PO BEDTIME 08/14/21 08/14/21 Previous Rx's Medication Instructions Recorded buprenorphine 8 mg-naloxone 2 mg 1 film BUCCAL DAILY #3 ea 04/11/21 sublingual film (Suboxone) gabapentin 600 mg tablet 600 mg PO TID #90 tab 04/11/21 hydroxyzine HCl 50 mg tablet 50 mg PO QID PRN #120 tab 04/11/21 multivitamin (Daily-Daria) 1 tab PO DAILY #30 tab 04/11/21 olanzapine 5 mg tablet 5 mg PO DAILY #30 tab 04/11/21 prazosin 2 mg capsule 2 mg PO BEDTIME #30 cap 04/11/21 quetiapine 100 mg tablet 100 mg PO BEDTIME #30 tab 04/11/21 Allergies Allergy/AdvReac Type Severity Reaction Status Date / Time No Known Allergies Allergy Verified 12/18/20 15:20 Review of Systems Review of Systems: Suicidal thoughts. Depression Yes all other systems are reviewed and are negative PMFSH Past Medical History Medical History Cannabis use disorder, severe, dependence Hepatitis C HTN (hypertension) Opioid use disorder, severe, in sustained remission, on maintenance therapy Recurrent major depression-severe Social History Social History Household Members: Family Household Members Other:: ex Housing: House Do you presently have visiting nurse or other home services: No Alcohol intake: never Patient Tobacco Use Status: Current everyday Tobacco user Tobacco use type: Cigarette Cigarette Packs Per Day: 1 Cigarettes Per Day: 20.0 Years Smoked: 10+ e-Cigarette/Vaping Use: Former Use Second Hand Smoke Exposure: Yes Substance Use Type: Marijuana Advance Directives: No Healthcare Proxy: No Guardian: No service: No Sexual orientation: Straight/Heterosexual Physical Exam Vital Signs: Vital Signs: Last Vital Signs Temp 98 F 08/14/21 08:04 Pulse 70 08/14/21 12:25 Resp 19 08/14/21 08:04 BP 129/80 08/14/21 12:25 Pulse Ox 96 08/14/21 12:25 BMI result Body Mass Index 30.4 Const: General: cooperative, healthy appearing, comfortable, no acute distress, well developed, alert, awake and Physically active Orientation/consciousness: patient oriented x3 HENMT: Head: Yes normal to inspection, Yes No palpable skull fracture present, Yes normocephalic, No atraumatic and No abrasion Eyes: General: appearance normal, both eyes and all related structures Neck: Neck: Yes normal visual inspection, Yes full ROM, Yes no lymphadenopathy, Yes no meningeal signs, Yes trachea midline, Yes supple, No anterior neck swelling and No tender Chest: Chest palpation & inspection: normal inspection of the chest and normal palpation of entire chest wall Resp: Effort & Inspection: normal respiratory effort and able to speak in complete sentences Auscultation: clear to auscultation bilaterally Cardio: Jugular venous distension: no JVD Heart sounds: S1 normal heart mati nd present and S2 normal heart sound present GI: Inspection: Yes normal to inspection and No abdominal wall ecchymosis Palpation (GI): Soft to palpation, not firm, nontender and no guarding : General: No CVA tenderness and Yes no CVA tenderness Back/Spine/Pelvis: Back: no CVA tenderness, No CVA tenderness and No back tenderness Skin: General skin exam: no rashes or lesions noted and elasticity normal Neuro: General: patient oriented x3, gait normal, no meningeal signs and CN's II-XI intact bilaterally Cranial nerves: Yes CN's II-XII intact bilaterally Extrem: General: Yes normal to inspection and Yes full ROM Psych: Appearance: grossly normal, well kempt and not disheveled Course Course Course Narrative: NUNE[facility] COVID swab sent. Crisis ordered Reevaluation(s) Reevaluation #1: Patient evaluated by care team field sales consultant Vir[place] and psychiatrist Dr. [place] in [place] patient do not need admission. Patient is safe for discharge. Patient will have prescriptions of psych meds filled by his primary psychiatrist. Patient presently is not suicidal homicidal. Time: 16:03 MDM - Psych MDM Narrative Medical decision making narrative: Major depressive disorder. Opiate use disorder Lab Data Result diagrams: 08/14/21 12:24 08/14/21 11:53 Labs: Lab Results 08/14/21 08/14/21 08/14/21 Range/Units 09:42 09:55 11:53 WBC (4.8-10.8) X10*3/uL RBC (4.60-5.80) X10*6/uL Hgb (14.0-18.0) g/dl Hct (42.0-52.0) % MCV (80.0-98.0) fL MCH (27.0-33.0) pg MCHC (31.0-36.0) g/dl RDW (11.0-16.0) % Plt Count (160-400) X10*3/uL MPV (9.4-12.4) fL Immature Gran % (Auto) (0.0-0.4) % Neut % (Auto) (45-73) % Lymph % (Auto) (20-40) % [place] % (Auto) (2-11) % Eos % (Auto) (0-4) % Baso % (Auto) (0-2) % Lymph # (Auto) (1.2-4.9) X10*3/uL [place] # (Auto) (0.1-1.2) X10*3/uL Eos # (Auto) (0.0-0.4) X10*3/uL Baso # (Auto) (0.0-0.2) X10*3/uL Abs Immat Gran (auto) (0.00-0.03) X10*3/uL Absolute Neuts (auto) (2.0-8.3) x10*3/uL Absolute Nucleated RBC (0.0-0.012) X10*3/uL Nucleated RBC % (auto) (0.0-0.2) /100WBC Sodium 139 (135-145) mmol/L Potassium 4.8 (3.3-5.1) mmol/L Chloride 102 (96-108) mmol/L Carbon Dioxide 30 H (22-29) mmol/L Anion Gap 12 (12-20) BUN 15 (9-16) mg/dL Creatinine 0.83 (0.5-1.4) mg/dL Estim Creat Clear Calc 141.7 Estimated GFR > 60 Random Glucose 115 (60-115) mg/dL Calcium 9.7 (8.4-10.2) mg/dL Total Bilirubin 0.3 (0.0-1.0) mg/dL AST 15 (5-37) U/L ALT 17 (0-40) U/L Alkaline Phosphatase 134 H (39-117) U/L Total Protein 7.5 (6.5-8.0) g/dL Albumin 4.2 (3.5-5.0) g/dL Urine Opiates Screen Not Detected (Not Detect) Urine Fentanyl Screen Not Detected (Not Detect) Ur Barbiturates Screen Not Detected (Not Detect) Ur Phencyclidine Scrn Not Detected (Not Detect) Ur Amphetamines Screen Not Detected (Not Detect) U Benzodiazepines Scrn Not Detected (Not Detect) Urine Cocaine Screen Not Detected (Not Detect) U Marijuana (THC) Screen POSITIVE H (Not Detect) Ethyl Alcohol mg/dL COVID-19 ([place]) Negative (Negative) COVID-19 Clin Com See Note 08/14/21 08/14/21 Range/Units 11:53 12:24 WBC 7.0 (4.8-10.8) X10*3/uL RBC 4.71 (4.60-5.80) X10*6/uL Hgb 12.5 L (14.0-18.0) g/dl Hct 38.7 L (42.0-52.0) % MCV 82.2 (80.0-98.0) fL MCH 26.5 L (27.0-33.0) pg MCHC 32.3 (31.0-36.0) g/dl RDW 14.6 (11.0-16.0) % Plt Count 302 (160-400) X10*3/uL MPV 9.1 L (9.4-12.4) fL Immature Gran % (Auto) 0.3 (0.0-0.4) % Neut % (Auto) 69.7 (45-73) % Lymph % (Auto) 22.4 (20-40) % [place] % (Auto) 6.5 (2-11) % Eos % (Auto) 0.7 (0-4) % Baso % (Auto) 0.4 (0-2) % Lymph # (Auto) 1.6 (1.2-4.9) X10*3/uL [place] # (Auto) 0.5 (0.1-1.2) X10*3/uL Eos # (Auto) 0.1 (0.0-0.4) X10*3/uL Baso # (Auto) 0.0 (0.0-0.2) X10*3/uL Abs Immat Gran (auto) 0.02 (0.00-0.03) X10*3/uL Absolute Neuts (auto) 4.8 (2.0-8.3) x10*3/uL Absolute Nucleated RBC 0.000 (0.0-0.012) X10*3/uL Nucleated RBC % (auto) 0.0 (0.0-0.2) /100WBC Sodium (135-145) mmol/L Potassium (3.3-5.1) mmol/L Chloride (96-108) mmol/L Carbon Dioxide (22-29) mmol/L Anion Gap (12-20) BUN (9-16) mg/dL Creatinine (0.5-1.4) mg/dL Estim Creat Clear Calc Estimated GFR Random Glucose (60-115) mg/dL Calcium (8.4-10.2) mg/dL Total Bilirubin (0.0-1.0) mg/dL AST (5-37) U/L ALT (0-40) U/L Alkaline Phosphatase (39-117) U/L Total Protein (6.5-8.0) g/dL Albumin (3.5-5.0) g/dL Urine Opiates Screen (Not Detect) Urine Fentanyl Screen (Not Detect) Ur Barbiturates Screen (Not Detect) Ur Phencyclidine Scrn (Not Detect) Ur Amphetamines Screen (Not Detect) U Benzodiazepines Scrn (Not Detect) Urine Cocaine Screen (Not Detect) U Marijuana (THC) Screen (Not Detect) Ethyl Alcohol < 10 mg/dL COVID-19 ([place]) (Negative) COVID-19 Clin Com Discharge Plan Discharge Clinical Impression: Recurrent major depression-severe, Opioid use disorder, severe, in sustained remission, on maintenance therapy Patient Disposition: Home, Self-Care Instructions: Depression (ED), Opioid Use Disorder (ED) Additional Instructions: Please follow-up with your primary care provider, psychiatrist, and therapist. Return to ED for any suicidal/homicidal ideation, auditory/visual hallucinations, any physical complaints, or any other concerning symptoms. Prescriptions: No Action olanzapine 5 mg Tablet 5 mg PO DAILY Qty: 30 0RF hydroxyzine HCl 50 mg Tablet 50 mg PO QID PRN (Reason: Anxiety) Qty: 120 0RF multivitamin [Daily-Daria] Tablet 1 tab PO DAILY Qty: 30 0RF gabapentin 600 mg tablet 600 mg PO TID Qty: 90 0RF quetiapine 100 mg tablet 100 mg PO BEDTIME Qty: 30 0RF prazosin 2 mg capsule 2 mg PO BEDTIME Qty: 30 0RF buprenorphine-naloxone [Suboxone] 8-2 mg Film 1 film BUCCAL DAILY Qty: 3 0RF olanzapine 15 mg tablet 1 tab PO BEDTIME 0RF nicotine 21 mg/24 hr patch 24 hour 21 mg transdermal DAILY PRN (Reason: Nicotine Cravings) 0RF Print Language: Somali
--- NOTE | 2021-08-14 12:11 | PC.NURSE ---
[facility] referral completed.
[2021-08-14 12:13] LABS: Ethanol < 10 mg/dL
[2021-08-14 12:16] LABS: Alanine Aminotransferase 17 U/L (0-40); Albumin Level 4.2 g/dL (3.5-5.0); Alkaline Phosphatase 134 U/L (39-117); Anion Gap 12 (12-20); Aspartate Amino Transferase 15 U/L (5-37); Bilirubin Total 0.3 mg/dL (0.0-1.0); Blood Urea Nitrogen 15 mg/dL (9-16); Calcium 9.7 mg/dL (8.4-10.2); Carbon Dioxide 30 mmol/L (22-29); Chloride 102 mmol/L (96-108); Creatinine Clr Calc Pharmacy 141.7; Estimated Glomerular Filt Rate > 60; Glucose Random 115 mg/dL (60-115); Potassium 4.8 mmol/L (3.3-5.1); Sodium 139 mmol/L (135-145); Total Protein 7.5 g/dL (6.5-8.0)
[2021-08-14 12:25] VITALS: BP 129/80; PULSE 70; O2SAT 96
[2021-08-14 12:31] LABS: Basophils Percent Auto 0.4 % (0-2); Eosinophils Absolute Auto 0.1 X10*3/uL (0.0-0.4); Eosinophils Percent Auto 0.7 % (0-4); Hematocrit 38.7 % (42.0-52.0); Hemoglobin 12.5 g/dl (14.0-18.0); Imm Gran Abs Auto 0.02 X10*3/uL (0.00-0.03); Imm Gran Pct Auto 0.3 % (0.0-0.4); Lymphocytes Absolute Auto 1.6 X10*3/uL (1.2-4.9); Lymphocytes Percent Auto 22.4 % (20-40); Mean Corpuscular HGB Conc 32.3 g/dl (31.0-36.0); Mean Corpuscular Hemoglobin 26.5 pg (27.0-33.0); Mean Corpuscular Volume 82.2 fL (80.0-98.0); Mean Platelet Volume 9.1 fL (9.4-12.4); Monocytes Absolute Auto 0.5 X10*3/uL (0.1-1.2); Monocytes Percent Auto 6.5 % (2-11); Neutrophils Absolute Auto 4.8 x10*3/uL (2.0-8.3); Neutrophils Percent Auto 69.7 % (45-73); Platelet Count 302 X10*3/uL (160-400); Red Blood Count 4.71 X10*6/uL (4.60-5.80); Red Cell Distribution Width 14.6 % (11.0-16.0)
[2021-08-14 12:33] LABS: MANUAL DIFF FLAG NO
--- NOTE | 2021-08-14 14:26 | PHA.MEDREC ---
Pharmacy Consult ? Medication Reconciliation Pharmacy has completed the medication reconciliation. Patient's reported medication matched claim history. Anne ChristensenD
== END 2021-08-14 16:40 | disposition home or self-care (01) ==
PROVIDERS: Physician Assistant; Emergency Provider Emergency Medicine
DX: F33.2 Major depressive disorder, recurrent severe without psychotic features (principal); F11.20 Opioid dependence, uncomplicated; R45.851 Suicidal ideations; Z20.822 Contact with and (suspected) exposure to COVID-19; F12.20 Cannabis dependence, uncomplicated
CPT/HCPCS: 36415; 80053; 80307; 82077; 85025; 87635; 99284

== ENCOUNTER 2022-05-08 21:12 | Emergency (ER) | payer MEDICAID, SELFPAY ==
--- NOTE | ~2022-05-08 | XR_ITS ---
EXAMINATION: XR HAND, LEFT CLINICAL INFORMATION: Thumb laceration, rule out fracture COMPARISON: None TECHNIQUE: PA, lateral, and oblique views of the left hand. FINDINGS: The bones are normal. No fracture. Alignment is anatomic. Joint spaces are maintained. No erosions or soft tissue calcifications. Soft tissue defect of the first digit. No radiopaque foreign bodies. XR/XR hand LT min 3V IMPRESSION: Soft tissue defect of the first digit.
[2022-05-08 21:18] VITALS: BP 155/104; PULSE 107; RESP 20; TEMP 36.7; O2SAT 98; BMI 32.5
--- NOTE | 2022-05-08 21:22 | ED.GENADULT ---
HPI - General Adult General Chief complaint: Wound/Laceration Stated complaint: Thumb lac at work Time Seen by Provider: 05/08/22 22:01 Source: patient Mode of arrival: ambulatory Limitations: no limitations History of Present Illness HPI narrative: 42-year-old male history of hypercholesterolemia, hep c, opiate use disorder, major depression presents with cut to left 1st digit, patient cut himself while cutting chicken fingers at work just prior to his arrival. Patient tells me the site was bleeding however has now stopped. Patient not on blood thinners. Denies numbness and tingling. Denies foreign body sensation. Reports this was a work related injury. Not up to date on a tetanus shot. Denies fevers and chills. Able to move finger freely without complaints. Related Data Home Medications Medication Instructions Recorded Confirmed nicotine 21 mg/24 hr daily 21 mg transdermal DAILY PRN 08/14/21 08/14/21 transdermal patch Nicotine Cravings olanzapine 15 mg tablet 1 tab PO BEDTIME depressive 08/14/21 08/14/21 disorder Previous Rx's Medication Instructions Recorded buprenorphine 8 mg-naloxone 2 mg 1 film buccal DAILY #3 ea 04/11/21 sublingual film (Suboxone) gabapentin 600 mg tablet 600 mg PO TID #90 tabs 04/11/21 hydroxyzine HCl 50 mg tablet 50 mg PO QID PRN Anxiety #120 tabs 04/11/21 multivitamin (Daily-Daria tablet) 1 tab PO DAILY #30 tabs 04/11/21 olanzapine 5 mg tablet 5 mg PO DAILY #30 tabs 04/11/21 prazosin 2 mg capsule 2 mg PO BEDTIME #30 caps 04/11/21 quetiapine 100 mg tablet 100 mg PO BEDTIME #30 tabs 04/11/21 Allergies Allergy/AdvReac Type Severity Reaction Status Date / Time No Known Allergies Allergy Verified 12/18/20 15:20 Review of Systems Review of Systems: Constitutional : No Weight loss, No Fever, No Chills, No Fatigue, No Malaise ENT/Mouth : No sore throat, No Rhinorrhea Eyes: No Eye Pain, No Swelling, No Redness Cardiovascular : No Chest Pain, No SOB, No Dyspnea on Exertion, No Orthopnea, No Edema, No Palpitations Respiratory : No Cough, No Sputum, No Wheezing Gastrointestinal : No Nausea, No Vomiting, No Diarrhea, No Constipation, No abdominal Pain, No Hematochezia, No Melena Genitourinary : No Dysuria, No Urinary Frequency, No Hematuria, Musculoskeletal : No joint pain, No Myalgias, No Joint Swelling Skin : No Skin Lesions, No rash, + avulsion to finger Neuro : No Weakness, No Numbness, No Dizziness, No Headache Psych : No Anxiety/Panic, No Depression All other systems reviewed and are negative Yes all other systems are reviewed and are negative [facility] Past Medical History Attestation statement: The following information was validated with the patient. Source: old records reviewed and nursing notes reviewed Medical History Cannabis use disorder, severe, dependence Depression Hepatitis C HTN (hypertension) Opioid use disorder, severe, in sustained remission, on maintenance therapy Recurrent major depression-severe Social History Social History Household Members: Family Household Members Other:: ex Housing: House Do you presently have visiting nurse or other home services: No Alcohol intake: never Patient Tobacco Use Status: Current everyday Tobacco user Tobacco use type: Cigarette Cigarette Packs Per Day: 1 Cigarettes Per Day: 20.0 Years Smoked: 10+ e-Cigarette/Vaping Use: Former Use Second Hand Smoke Exposure: Yes Substance Use Type: Marijuana service: No Sexual orientation: Straight/Heterosexual Physical Exam ED Vital Signs: Vital Signs - 24 hr 05/08/22 21:18 Temperature 98.1 F Pulse Rate 107 H Respiratory Rate 20 Blood Pressure 155/104 H Pulse Oximetry 98 Oxygen Delivery Method Room Air BMI result Body Mass Index 32.5 vss Appearance: Alert.? Oriented X3.? No acute distress.? Head: Normocephalic, atraumatic, no step-offs or deformities Eyes: Pupils equal, round and reactive to light.? CVS: Normal heart rate and rhythm.? Pulses normal.? Respiratory: No respiratory distress.? Breath sounds normal.? Abdomen: Soft and nontender.? Skin: Skin warm and dry.? Normal skin color.? Normal skin turgor.? Extremities: No lower extremity edema.? No calf ttp. 5/5 strength to bilateral upper and lower extremities + avulsion to the distal aspect of left thumb, involving a small part of the nail bed. Capillary refill less than 2 seconds to bilateral upper extremity digits. 2+ radial pulses equal bilateral. Full range of motion to all fingers. No step-offs or deformities. No distracting injuries. Neuro: Oriented X 3.? No motor deficit.? No sensory deficit. CN 2-12 intact Course Course Course Narrative: 2122 42-year-old male presents with left thumb laceration happened just prior to arrival. This occurred at work. Patient was cutting chicken fingers and cut his thumb. Denies numbness or tingling. Denies foreign body sensation. Not up-to-date on tetanus shot. Physical examination with avulsion to left 1st digit involving nail bed. Plan at this time is Boostrix, x-ray of left finger to rule out fracture dislocation. Reevaluation(s) Reevaluation #1: X-ray showing soft tissue defect of the 1st digit consistent with avulsion. No fracture or dislocation. Advised to follow-up with the were connection as this was a work related injury. Patient was given his Boostrix shot. Tolerated it well. Also given follow-up with ortho. Educated on worrisome signs and symptoms and when to return. Time: 22:07 Medical Decision Making Medical Decision Making [facility] Narrative: 2204 42-year-old male presents with avulsion to left thumb status post cutting himself with a knife. Not up-to-date on tetanus shot. Tetanus shot on up-to-date. Physical examination with avulsion to left thumb. Full range of motion to digit. No tenderness to palpation. Not bleeding. Plan at this time is to clean area and apply dressing. Patient not on anticoagulation. Will apply a tight dressing/pressure dressing to help stop/prevent bleeding. Will obtain x-ray to rule out fracture dislocation. Critical Care Time Critical Care Time Critical Care Time: No Discharge Plan Discharge Clinical Impression: Avulsion of skin, Finger pain, left, Work related injury Patient Disposition: Home, Self-Care Additional Instructions: Take your medications as prescribed. If you were prescribed antibiotics today, it is important that you take your medication to their entirety, do not skip any doses, do not finish them early. Follow-up with your primary care provider this week. Return to the emergency department with new or worsening symptoms. Such as fevers, chills, chest pain, shortness of breath, nausea, vomiting, dizziness, headache, vision changes, lethargy, numbness, tingling, controlled bleeding In case of emergency call 911 Your x-ray showed soft tissue defect of first digit. No fractures or dislocations noted. Please keep dressing on for 24 hours. Follow-up with the work connection as this was a work related injury. XR/XR hand LT min 3V IMPRESSION: Soft tissue defect of the first digit. Prescriptions: No Action olanzapine 5 mg Tablet 5 mg PO DAILY Qty: 30 0RF hydroxyzine HCl 50 mg Tablet 50 mg PO QID PRN (Reason: Anxiety) Qty: 120 0RF multivitamin [Daily-Daria] Tablet 1 tab PO DAILY Qty: 30 0RF gabapentin 600 mg tablet 600 mg PO TID Qty: 90 0RF quetiapine 100 mg tablet 100 mg PO BEDTIME Qty: 30 0RF prazosin 2 mg capsule 2 mg PO BEDTIME Qty: 30 0RF buprenorphine-naloxone [Suboxone] 8-2 mg Film 1 film BUCCAL DAILY Qty: 3 0RF olanzapine 15 mg tablet 1 tab PO BEDTIME nicotine 21 mg/24 hr patch 24 hour 21 mg transdermal DAILY PRN (Reason: Nicotine Cravings) [place]: [facility] [place]Provider Group] - 2 weeks Physician,None [Primary Care Provider] - 2 days Stand Alone Forms: Work/School Release
== END 2022-05-08 22:53 | disposition left against medical advice (07) ==
LOC: HO.ED 22:42
PROVIDERS: Emergency Provider Emergency Medicine
DX: S61.012A Laceration without foreign body of left thumb without damage to nail, initial encounter (principal); S60.512A Abrasion of left hand, initial encounter; W26.9XXA Contact with unspecified sharp object(s), initial encounter; Y93.9 Activity, unspecified; Y92.9 Unspecified place or not applicable; Y99.0 Civilian activity done for income or pay; F17.210 Nicotine dependence, cigarettes, uncomplicated; Z71.6 Tobacco abuse counseling; Z79.899 Other long term (current) drug therapy
CPT/HCPCS: 73130; 99281; 99283

== ENCOUNTER 2022-09-17 22:10 | Emergency (ER) | payer MEDICAID, SELFPAY ==
[2022-09-17 22:22] VITALS: BP 144/84; PULSE 84; RESP 14; TEMP 36.7; O2SAT 98; BMI 32.5
--- NOTE | 2022-09-17 23:05 | ED.GENADULT ---
HPI - General Adult General Chief complaint: General Medical Stated complaint: med refill Time Seen by Provider: 09/17/22 23:02 Source: patient Mode of arrival: ambulatory Limitations: no limitations History of Present Illness HPI narrative: 42-year-old male presents requesting a medication refill, patient takes 600 mg of gabapentin p.o. t.i.d., last filled about a month ago, patient tells me he ran out and has not been able to get a hold of his psychiatrist refill. He last ate this medication today. Denies medical complaints. Denies suicidal homicidal ideation. Denies chest pain, shortness of breath, nausea, vomiting, abdominal pain, headache, vision changes, dizziness and weakness. Related Data Home Medications Medication Instructions Recorded Confirmed nicotine 21 mg/24 hr daily 21 mg transdermal DAILY PRN 08/14/21 08/14/21 transdermal patch Nicotine Cravings olanzapine 15 mg tablet 1 tab PO BEDTIME depressive 08/14/21 08/14/21 disorder Previous Rx's Medication Instructions Recorded buprenorphine 8 mg-naloxone 2 mg 1 film buccal DAILY #3 ea 04/11/21 sublingual film (Suboxone) gabapentin 600 mg tablet 600 mg PO TID #90 tabs 04/11/21 hydroxyzine HCl 50 mg tablet 50 mg PO QID PRN Anxiety #120 tabs 04/11/21 multivitamin (Daily-Daria tablet) 1 tab PO DAILY #30 tabs 04/11/21 olanzapine 5 mg tablet 5 mg PO DAILY #30 tabs 04/11/21 prazosin 2 mg capsule 2 mg PO BEDTIME #30 caps 04/11/21 quetiapine 100 mg tablet 100 mg PO BEDTIME #30 tabs 04/11/21 gabapentin 600 mg tablet 600 mg PO TID 5 days #15 tabs 09/17/22 Allergies Allergy/AdvReac Type Severity Reaction Status Date / Time No Known Allergies Allergy Verified 12/18/20 15:20 Review of Systems Review of Systems: Constitutional : No Weight loss, No Fever, No Chills, No Fatigue, No Malaise ENT/Mouth : No sore throat, No Rhinorrhea Eyes: No Eye Pain, No Swelling, No Redness Cardiovascular : No Chest Pain, No SOB, No Dyspnea on Exertion, No Orthopnea, No Edema, No Palpitations Respiratory : No Cough, No Sputum, No Wheezing Gastrointestinal : No Nausea, No Vomiting, No Diarrhea, No Constipation, No abdominal Pain, No Hematochezia, No Melena Genitourinary : No Dysuria, No Urinary Frequency, No Hematuria, Musculoskeletal : No joint pain, No Myalgias, No Joint Swelling Skin : No Skin Lesions, No rash Neuro : No Weakness, No Numbness, No Dizziness, No Headache Psych : No Anxiety/Panic, No Depression All other systems reviewed and are negative Yes all other systems are reviewed and are negative [facility] Past Medical History Attestation statement: The following information was validated with the patient. Source: old records reviewed and nursing notes reviewed Medical History Cannabis use disorder, severe, dependence Depression Hepatitis C HTN (hypertension) Opioid use disorder, severe, in sustained remission, on maintenance therapy Recurrent major depression-severe Social History Social History Household Members: Family Household Members Other:: ex Housing: House Do you presently have visiting nurse or other home services: No Alcohol intake: never Patient Tobacco Use Status: Current everyday Tobacco user Tobacco use type: Cigarette Cigarette Packs Per Day: 1 Cigarettes Per Day: 20.0 Years Smoked: 10+ e-Cigarette/Vaping Use: Former Use Second Hand Smoke Exposure: Yes Substance Use Type: Marijuana Advance Directives: No Advance Directives Information Provided: Yes service: No Sexual orientation: Straight/Heterosexual Physical Exam ED Vital Signs: Vital Signs - 24 hr 09/17/22 22:22 Temperature 98.1 F Pulse Rate 84 Respiratory Rate 14 Blood Pressure 144/84 H Pulse Oximetry 98 Oxygen Delivery Method Room Air BMI result Body Mass Index 32.5 vss Appearance: Alert.? Oriented X3.? No acute distress.? Head: Normocephalic, atraumatic, no step-offs or deformities Eyes: Pupils equal, round and reactive to light.? CVS: Normal heart rate and rhythm.? Pulses normal.? Respiratory: No respiratory distress.? Breath sounds normal.? Abdomen: Soft and nontender.? Skin: Skin warm and dry.? Normal skin color.? Normal skin turgor.? Extremities: No lower extremity edema.? No calf ttp. 5/5 strength to bilateral upper and lower extremities Neuro: Oriented X 3.? No motor deficit.? No sensory deficit. CN 2-12 intact Medical Decision Making Medical Decision Making [facility] Narrative: 4 42-year-old male presents for medication refill patient takes 600 mg p.o. t.i.d. of gabapentin was unable to get a hold of his psychiatrist for filling this medication so presents today for medication refill without med complaints. According to PDMP patient had his dose filled last month on the , he had 90 filled, 600 mg tablets. Appropriate to refill at this time will give him a 5 day supply Physical exam benign Likely normal physical exam. Unlikely metabolic derangements. Likely patient ran out of medications. Plan at this time refill patient's medications advised him to follow-up with psychiatry Differential Diagnosis Differential Diagnoses: The differential diagnosis associated with the presentation includes Likely normal physical exam. Unlikely metabolic derangements. Likely patient ran out of medications. Admission/Observation Consideration of admission/observation: Escalation of care including admission/observation considered Not indicated Prescription Management I considered prescription management with: Pain Medication ([place]) Core Measures AMI core measures followed: Yes Measure exclusions: not indicated Critical Care Time Critical Care Time Critical Care Time: No Discharge Plan Discharge Clinical Impression: Medication refill Patient Disposition: Home, Self-Care Instructions: Medicine Refill (ED) Additional Instructions: Take your medications as prescribed. If you were prescribed antibiotics today, it is important that you take your medication to their entirety, do not skip any doses, do not finish them early. Follow-up with your primary care provider this week. Return to the emergency department with new or worsening symptoms. Such as fevers, chills, chest pain, shortness of breath, nausea, vomiting, dizziness, headache, vision changes, lethargy In case of emergency call 911 Prescriptions: New gabapentin 600 mg tablet 600 mg PO TID 5 Days Qty: 15 0RF No Action olanzapine 5 mg Tablet 5 mg PO DAILY Qty: 30 0RF hydroxyzine HCl 50 mg Tablet 50 mg PO QID PRN (Reason: Anxiety) Qty: 120 0RF multivitamin [Daily-Daria] Tablet 1 tab PO DAILY Qty: 30 0RF gabapentin 600 mg tablet 600 mg PO TID Qty: 90 0RF quetiapine 100 mg tablet 100 mg PO BEDTIME Qty: 30 0RF prazosin 2 mg capsule 2 mg PO BEDTIME Qty: 30 0RF buprenorphine-naloxone [Suboxone] 8-2 mg Film 1 film BUCCAL DAILY Qty: 3 0RF olanzapine 15 mg tablet 1 tab PO BEDTIME nicotine 21 mg/24 hr patch 24 hour 21 mg transdermal DAILY PRN (Reason: Nicotine Cravings) Referrals: ED Physician,Generic [Emergency Provider] - 2 days Interventions: ED Discharge Assessment Last Done: 09/17/22 23:16
--- NOTE | 2022-09-17 23:21 | PC.NURSE ---
pt assessed and discharge by provider, the research rn spec discharge instruction with, pt verbalized understanding.
== END 2022-09-17 23:23 | disposition home or self-care (01) ==
PROVIDERS: Emergency Provider Internal Medicine
DX: F33.9 Major depressive disorder, recurrent, unspecified (principal); Z76.0 Encounter for issue of repeat prescription; E78.00 Pure hypercholesterolemia, unspecified; F11.20 Opioid dependence, uncomplicated; F17.210 Nicotine dependence, cigarettes, uncomplicated; F12.20 Cannabis dependence, uncomplicated; Z79.899 Other long term (current) drug therapy
CPT/HCPCS: 99282; 99283